=== PATIENT | female | born 2000 | race Caucasian/White ===

== ENCOUNTER 2019-11-24 16:26 | Emergency (ER) | payer MEDICAID, SELFPAY ==
--- NOTE | ~2019-11-24 | XR_ITS ---
XR ankle RT min 3V DATE: 11/24/2019 16:49 INDICATION: Rolled right ankle. Lateral right ankle pain. TECHNIQUE: 4 views COMPARISON: 08/05/2017 right ankle FINDINGS: No fracture or dislocation of the ankle or disruption of the ankle mortise is detected. No periosteal reaction or bone destruction. IMPRESSION: Negative Reviewed, dictated and finalized at location B. IMPRESSION: Negative
[2019-11-24 16:36] VITALS: BP 117/70; PULSE 91; RESP 18; TEMP 37.3; O2SAT 100
--- NOTE | 2019-11-24 16:45 | ED.GENADULT ---
HPI - General Adult General Chief complaint: Extremity Injury, Lower Stated complaint: Right Ankle Pain Time Seen by Provider: 11/24/19 16:41 Source: patient and RN notes reviewed Mode of arrival: ambulatory Limitations: no limitations History of Present Illness HPI narrative: 19-year-old female presents with complains of tenderness and swelling to the right lateral ankle for 1 hour. No treatment. Linda says approximately @ 15:20 today she stepped off a ledge walking out a door injuring RT ankle. No radiating pain. No numbness or tingling or loss of mobility. Denies inability to bear weight. Exacerbation factor consist of movement of RT ankle and bearing weight. The relieving factor is immobility. Denies discoloration. Denies altered sensation, back pain, neck pain, and suspected foreign body. Denies fever or chills. Linda denies being , LMP 11/20/19. Some parts of this dictation were generated by voice recognition software and may contain typographical and/or grammatical inaccuracies. Related Data Home Medications Medication Instructions Recorded Confirmed No Home Medications 11/24/19 11/24/19 Allergies Allergy/AdvReac Type Severity Reaction Status Date / Time coconut Allergy Unknown Unknown Verified 11/24/19 16:43 latex Allergy Unknown Unknown Verified 11/24/19 16:43 Review of Systems Review of Systems: Narrative: CONSTITUTIONAL: Denies fever, chills, sweats. EYES: Denies visual changes, redness, discharge. ENT: Denies rhinorrhea, congestion, sore throat, otalgia. CARDIOVASCULAR: Denies chest pain, palpitations, edema. RESPIRATORY: Denies dyspnea, wheezing, cough. GASTROINTESTINAL: Denies abdominal pain, nausea, vomiting, diarrhea. GENITOURINARY: Denies dysuria, hematuria, abnormal discharge. SKIN: Denies rash or itching. MUSCULOSKELETAL: Denies acute back pain or myalgia. Complains of RT lateral ankle swelling and pain. NEUROLOGIC: Denies numbness or focal weakness. PSYCHIATRIC: Denies anxiety or depression. [facility] [place] Past Medical History Medical History (Updated 12/02/19 @ 15:45 by SKYLAR Reece) Asthma Vocal cord dysfunction Surgical History Surgical History (Updated 12/02/19 @ 15:45 by SKYLAR Reece) No significant past surgical history Family History Family History (Updated 12/02/19 @ 15:46 by SKYLAR Reece) Mother Hypertension Grandparent Hypertension Social History Social History (Updated 12/02/19 @ 15:47 by SKYLAR Reece) Smoking status: Never smoker Second hand tobacco smoke exposure: Yes Alcohol intake: never Substance use: never Living arrangements: with family Occupation/Education: student Gender identity (if verbalized by the patient): Female Comments At time of signature, agree with nurse past medical, surgical, social, and family history. There is no relevant family history pertinent to the presenting complaint. Exam Narrative: Exam Narrative: GENERAL: This is a well-nourished, well-developed patient, in no apparent distress. Talks in full sentences without deficits and ambulates with RT antalgic gait without dyspnea. HEAD: normocephalic, atraumatic. EYES: PERRL. Sclera clear/white. Vision is grossly intact. NECK: Neck supple, non-tender without lymphadenopathy, masses or thyromegaly. CARDIOVASCULAR: Regular rate and rhythm without murmurs, gallops, or rubs. RESPIRATORY: Clear to auscultation. Breath sounds equal bilaterally. No wheezes, rales, or rhonchi. GASTROINTESTINAL: Abdomen soft, non-tender, nondistended. Bowel sounds are active. No hepato-splenomegaly, or palpable masses. No guarding. SKIN: warm, intact with no suspicious lesions or rash, good texture and turgor. NEURO: awake, alert, and oriented to person, place and time. There were no obvious focal neurologic abnormalities. EXTREMITIES: Without cyanosis, clubbing or edema. RT lateral (stable) ankle with moderate tenderness on palpat
== END 2019-11-24 17:12 | disposition home or self-care (01) ==
PROVIDERS: Emergency Provider Nurse Practitioner Family
DX: S93.401A Sprain of unspecified ligament of right ankle, initial encounter (principal); X58.XXXA Exposure to other specified factors, initial encounter
CPT/HCPCS: 73610; 99213; G0463

== ENCOUNTER 2020-03-30 11:51 | Emergency (ER) | payer MEDICAID, SELFPAY ==
[2020-03-30 11:57] VITALS: BP 117/64; PULSE 71; RESP 14; TEMP 36.9; O2SAT 100
--- NOTE | 2020-03-30 12:19 | ED.URI ---
HPI - URI/Sore Throat General Chief Complaint: Upper Respiratory Infection Stated Complaint: sore throat/cough Time Seen by Provider: 03/30/20 12:19 Source: patient and RN notes reviewed Mode of arrival: ambulatory Limitations: no limitations History of Present Illness HPI Narrative: 19-year-old female presents with concern for several day history of sore throat and cough. Denies taking any [id number] medications for relief. She denies fever, malaise, body aches, nasal congestion, ear pain. Reports postnasal drainage. 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 MD elicited complaint: cough and sore throat Related Data Home Medications Medication Instructions Recorded Confirmed albuterol sulfate 2 puff INHALATION QID PRN 03/30/20 03/30/20 Allergies Allergy/AdvReac Type Severity Reaction Status Date / Time coconut Allergy Unknown Anaphylaxis Verified 03/30/20 12:10 latex Allergy Unknown Rash Verified 03/30/20 12:10 Review of Systems Review of Systems: Narrative: CONSTITUTIONAL: Denies malaise, chills, sweats, or fever. EYES: Denies visual changes, redness, or discharge. ENT: Denies rhinorrhea, congestion, sinus pain, otalgia. Reports postnasal drainage and sore throat. CARDIOVASCULAR: Denies chest pain, palpitations, or edema. RESPIRATORY: Reports cough. Denies dyspnea. GASTROINTESTINAL: Denies abdominal pain, nausea, vomiting, diarrhea SKIN: Denies rash or itching. MUSCULOSKELETAL: Denies myalgia. NEUROLOGIC: Denies headache. All systems reviewed & are unremarkable except as noted in HPI and below PMFSH Past Medical History Medical History (Updated 03/30/20 @ 12:25 by Mckenzie Solis NP) Asthma Vocal cord dysfunction Surgical History Surgical History (Updated 12/02/19 @ 15:45 by SKYLAR Reece) No significant past surgical history Family History Family History (Updated 12/02/19 @ 15:46 by SKYLAR Reece) Mother Hypertension Grandparent Hypertension Social History Social History (Updated 12/02/19 @ 15:47 by SKYLAR Reece) Smoking status: Never smoker Second hand tobacco smoke exposure: Yes Alcohol intake: never Substance use: never Gender identity (if verbalized by the patient): Female Comments At time of signature, agree with nursing past medical, surgical, social and family history. There is no relevant family history pertinent to the presenting complaint Exam Narrative: Exam Narrative: GENERAL: Well-appearing, well-nourished, and in no acute distress. HEAD: Normocephalic EYES: PERRLA, conjunctivae clear ENT: Nares clear, turbinates edematous and erythematous, clear discharge. Mucous membranes moist. TM pearly mann with sharp light reflex bilaterally; no tragal tenderness. Oropharynx not erythematous without lesions. Tonsils not enlarged and without exudate, no drooling, no hoarseness, no trismus, uvula midline. NECK: Supple. No lymphadenopathy CHEST: Clear to auscultation, breath sounds equal. No wheezing, rhonchi, rales, or stridor. No respiratory distress, speaks in full sentences. HEART: Regular rate and rhythm. No murmur heard. SKIN: Warm, dry, no rash. NEURO: Alert and oriented x3. PSYCH: Normal mood and affect Course Course Emergency Course: Patient is aware of diagnosis, understands and agrees to treatment plan. Anticipatory guidance given. Patient agrees to follow-up as directed and is aware of reasons to seek care at the emergency department. Portions of this record may have been created with voice recognition software Vital Signs Vital signs: Vital Signs Temperature 98.4 F 03/30/20 11:57 Pulse Rate 71 03/30/20 11:57 Respiratory Rate 14 03/30/20 11:57 Blood Pressure 117/64 03/30/20 11:57 Pulse Oximetry 100 03/30/20 11:57 Temperature 98.4 F 03/30/20 11:57 Pulse Rate 71 03/30/20 11:57 Respiratory Rate 14 0
--- NOTE | 2020-03-30 12:52 | PC.NURSE ---
1250- PROVIDER NOTIFIED PT OF NEED FOR COVID TEST TO BE DONE BEFORE RETURNING TO WORK . INFORMATION GIVEN TO PATIENT WHO WAS STILL IN WAITING ROOM. COVID ORDER AND FACESHHET FAXED TO [facility]. PT IS AWARE THAT SHE WILL RECIEVE A PHONE CALL TO SET UP TESTING. PT IS AGREEABLE AT THIS TIME.
== END 2020-03-30 12:32 | disposition home or self-care (01) ==
PROVIDERS: Emergency Provider Nurse Practitioner
DX: J06.9 Acute upper respiratory infection, unspecified (principal); J45.909 Unspecified asthma, uncomplicated
CPT/HCPCS: 87081; 87880; 99213; G0463

== ENCOUNTER 2020-05-21 19:58 | Emergency (ER) | payer OTHER, SELFPAY ==
[2020-05-21 20:02] VITALS: BP 143/89; PULSE 98; RESP 18; TEMP 36.3; O2SAT 100
--- NOTE | 2020-05-21 22:08 | ED.DENTAL ---
HPI - Dental/Oral General Chief complaint: Dental/Oral Stated complaint: Dental pain Time Seen by Provider: 05/21/20 22:01 History of Present Illness HPI Narrative: Bilateral wisdom tooth pain. She reports that she has seen a dentist and plans to get them out, but they will not put her on the schedule for at least 3 months. She has been taking acetaminophen without improvmeent. She does not have a PCP. Related Data Home Medications Medication Instructions Recorded Confirmed albuterol sulfate 2 puff INHALATION QID PRN 03/30/20 03/30/20 Control Pill 1 tab-cap/day PO HS 05/21/20 Allergies Allergy/AdvReac Type Severity Reaction Status Date / Time coconut Allergy Unknown Anaphylaxis Verified 05/21/20 20:02 latex Allergy Unknown Rash Verified 05/21/20 20:02 Review of Systems Review of Systems: All systems reviewed & are unremarkable except as noted in HPI and below Constitutional: Constitutional: Denies chills and Denies fever(s) Eyes: Eyes: Denies change in vision ENT: Denies dizziness Cardiovascular: Cardiovascular: Denies chest pain Respiratory: Respiratory: Denies dyspnea Gastrointestinal: Gastrointestinal: Denies nausea and Denies vomiting Neurologic: Denies dizziness, Reports headache(s), Denies numbness and Denies weakness PMFSH Past Medical History Medical History Asthma Vocal cord dysfunction Surgical History Surgical History No significant past surgical history Family History Family History Mother Hypertension Grandparent Hypertension Social History Social History Smoking status: Never smoker Second hand tobacco smoke exposure: Yes Alcohol intake: never Substance use: never Gender identity (if verbalized by the patient): Female Exam Const: General: healthy appearing, no acute distress and alert Orientation/consciousness: patient oriented x3 HENMT: Head: normal to inspection Ears: external ears normal and TM's normal bilaterally Mouth: Yes Normal oral and palatal mucosa present and Yes moist mucous membranes Teeth and gingiva: dentition normal Eyes: Pupils: Equal, round and reactive pupils present Skin: General skin exam: normal color Neuro: General: patient oriented x3, moves all extremities, no focal motor deficits and CN's II-XI intact bilaterally Speech: normal speech Course Vital Signs Vital signs: Vital Signs Temperature 36.3 C L 05/21/20 20:02 Pulse Rate 98 05/21/20 20:02 Respiratory Rate 18 05/21/20 20:02 Blood Pressure 143/89 H 05/21/20 20:02 Pulse Oximetry 100 05/21/20 20:02 Temperature 36.3 C L 05/21/20 20:02 Pulse Rate 98 05/21/20 20:02 Respiratory Rate 18 05/21/20 20:02 Blood Pressure 143/89 H 05/21/20 20:02 Pulse Oximetry 100 05/21/20 20:02 MDM - Dental/Oral MDM Narrative Medical decision making narrative: grossly normal dental exam. I will recmmend NSAIDs and refer to PCP possibly different dental clinic Differential Diagnosis Differential diagnosis: Likely toothache Medical Records Attestation: I reviewed the patient's medical records. Discharge Plan Discharge Clinical Impression: Pain, dental Patient Disposition: Home, Self-Care Condition: Stable Instructions: Toothache (ED) Additional Instructions: You can attempt scheduling and appointment with : [facility] Prescriptions: New ibuprofen 600 mg tablet 600 mg PO Q6H PRN (Reason: pain) Qty: 30 RF: 0 No Action albuterol sulfate 90 mcg/actuation Hfa Aerosol Inhaler 2 puff INHALATION QID PRN (Reason: Dyspnea) RF: 0 Control Pill 1 tab-cap/day PO HS RF: 0 Follow-up/Referrals: Bradley Schmid MD [Physician] - PHYSICIAN,OBSTETRICS TECHNICIAN [Primary Care P
[2020-05-21] MEDS: KETOROLAC (*BKC) 60 MG/2 ML VIAL IM (22:31)
[2020-05-21 23:02] VITALS: BP 112/78; PULSE 72; RESP 16; O2SAT 99
== END 2020-05-21 23:03 | disposition home or self-care (01) ==
PROVIDERS: Emergency Provider Emergency Medicine
DX: K08.89 Other specified disorders of teeth and supporting structures (principal); J45.909 Unspecified asthma, uncomplicated
CPT/HCPCS: 96372; 99283; J1885

== ENCOUNTER 2020-06-24 19:58 | Emergency (ER) | payer OTHER, SELFPAY ==
--- NOTE | ~2020-06-24 | CT_ITS ---
EXAMINATION: CT abdomen pelvis w con DATE: 06/24/2020 22:15 INDICATION: Right upper quadrant abdominal pain TECHNIQUE: Computed tomography (CT) of the abdomen and pelvis was performed with 100 mL Omnipaque-350 intravenous contrast. Automated exposure control and iterative reconstruction technique were employe d. The dose-length product was 1503.34 mGy-cm. COMPARISON: None FINDINGS: Minimal atelectasis in the dependent lower lobes. Heart size is normal. No pericardial or pleural eff usion. Focal hepatic steatosis at the ligamentum teres. There are couple low-attenuation likely hepat ic cysts or hemangiomas, the largest measuring 7 mm. Spleen, pancreas, bilateral adrenal glands and k idneys are normal. Bowels including the appendix are normal with large amount of stool in the proxima l colon. Bladder, anteverted uterus and adnexa are normal with 1.5 cm dominant follicle the left ovar y. No free intraperitoneal gas or fluid. No pathologically enlarged abdominal or pelvic lymphadenopat hy. Chronic mild anterior wedging at T12-L2. Mild lumbar spondylosis. IMPRESSION: 1. No acute intra-abdominal/pelvic process. Reviewed, dictated and finalized at location A.
[2020-06-24 20:00] VITALS: BP 147/95; PULSE 97; RESP 20; TEMP 36.4; O2SAT 100
[2020-06-24 20:20] LABS: Basophils Percent Auto 0.5 % (0.2-1.2); Eosinophils Absolute Auto 0.4 K/mm3 (0-0.3); Eosinophils Percent Auto 4.7 % (0-4.4); Hematocrit 40.4 % (37.0-47.0); Hemoglobin 13.8 g/dL (12.0-15.0); Immature Granulocyte Absolute 0.01 K/mm3 (0.00-0.031); Immature Granulocyte Percent A 0.1 % (0-0.5); Lymphocytes Absolute Auto 2.57 K/mm3 (0.9-3.2); Lymphocytes Percent Auto 33.7 % (18.3-44.2); Mean Corpuscular HGB Conc 34.2 g/dl (32-36); Mean Corpuscular Hemoglobin 30.5 pg (26-34); Mean Corpuscular Volume 89.4 fl (80-100); Mean Platelet Volume 9.7 fl (7.4-10.4); Monocytes Absolute Auto 0.7 K/mm3 (0.1-0.6); Monocytes Percent Auto 8.5 % (2.6-8.5); Neutrophils Percent Auto 52.5 % (45.5-73.1); Platelet Count Result 244 k/mm3 (150-375); Red Blood Count 4.52 M/mm3 (4.2-5.4); Red Cell Distribution Width 13.1 % (11.5-14.5); White Blood Count 7.6 K/mm3 (4.5-10.0)
[2020-06-24 20:35] LABS: Alanine Aminotransferase 17 U/L (4-35); Albumin Level 4.4 g/dL (3.5-5.1); Alkaline Phosphatase 50 U/L (38-126); Anion Gap 9 mmol/L (8-16); Aspartate Amino Transferase 22 U/L (14-36); Bilirubin,Total 0.3 mg/dL (0.2-1.3); Blood Urea Nitrogen 16 mg/dL (7-17); Calcium 9.4 mg/dL (8.4-10.2); Carbon Dioxide 27 mmol/L (22-30); Chloride 105 mmol/L (98-107); Estimated CRCL calculation 127 ml/min; Estimated Glomerular Filt Rate > 60; Glucose 113 mg/dL (65-105); Lipase 71 U/L (23-300); Potassium 3.9 mmol/L (3.4-5.0); Sodium 141 mmol/L (137-145)
--- NOTE | 2020-06-24 20:38 | PC.NURSE ---
called lab to add on d dimer
[2020-06-24 20:53] LABS: D Dimer 0.27 ug/mL (<0.48)
[2020-06-24 20:54] LABS: Add Urine Microscopic? YES; Appearance Urine Clear (Clear); Bacteria Urine 1+ /hpf; Bilirubin Urine Negative (Negative); Blood Urine 1+ (Negative); Color Urine Straw (Yellow); Glucose Urine UA Negative (Negative); Ketones Urine Negative (Negative); Leukocyte Esterase Ur Negative LEU/UL (Negative); Mucus Urine Rare /lpf; Nitrate Urine Negative (Negative); Protein Urine Negative (Negative); RBC Urine 0-2 /hpf (0-2); Specific Grav Ur 1.016 (1.001-1.035); Squamous Epithelial Cell Urine Few /hpf (Few); Urobilinogen Urine Negative mg/dL (<2.0); WBC Urine 0-3 /hpf
[2020-06-24] MEDS: ONDANSETRON INJ 4 MG/2 ML VIAL IV PUSH (20:56)
[2020-06-24] MEDS: MORPHINE SULFATE (*CRX) 4 MG/ML INJ IV PUSH (20:57)
--- NOTE | 2020-06-24 21:00 | ED.ABDPAIN ---
HPI - Abdominal Pain General Chief Complaint: Abdominal Pain Stated Complaint: right sided flank pain Time Seen by Provider: 06/24/20 20:14 History of Present Illness HPI narrative: Patient is a 20-year-old female who presents ER with upper abdominal pain. Sharp and sudden onset last night around midnight. This persisted throughout today. Worse with deep breath. Feels like it is underneath her rib cage in her abdomen. No nausea or vomiting or sweats or chills. No modification with eating or drinking. Has not had similar symptoms before. No hemoptysis. She does have a Nexplanon. Related Data Home Medications Medication Instructions Recorded Confirmed albuterol sulfate 2 puff INHALATION QID PRN 03/30/20 03/30/20 epinephrine [EpiPen 2-Shaun] 06/24/20 Allergies Allergy/AdvReac Type Severity Reaction Status Date / Time coconut Allergy Unknown Anaphylaxis Verified 06/24/20 19:59 latex Allergy Unknown Rash Verified 06/24/20 19:59 Review of Systems Review of Systems: All systems reviewed & are unremarkable except as noted in HPI and below Constitutional: Constitutional: Denies chills, Denies fever(s) and Denies weakness ENT: Denies nasal congestion and Denies sore throat Cardiovascular: Cardiovascular: Denies chest pain and Denies radiating jaw, neck or arm pain Respiratory: Respiratory: Denies cough and Denies dyspnea Comments: Pain with deep breath Gastrointestinal: Gastrointestinal: Reports abdominal pain, Denies diarrhea, Denies nausea and Denies vomiting PMFSH Past Medical History Medical History (Updated 06/24/20 @ 22:43 by Maikel Soriano MD) Asthma Vocal cord dysfunction Surgical History Surgical History No significant past surgical history Family History Family History Mother Hypertension Grandparent Hypertension Social History Social History Smoking status: Never smoker Second hand tobacco smoke exposure: Yes Alcohol intake: never Substance use: never Gender identity (if verbalized by the patient): Female Exam Narrative: Exam Narrative: GENERAL: Well-appearing, well-nourished, and in no acute distress. HEAD: Normocephalic, atraumatic. ENT: Mucous membranes moist. CHEST: Clear to auscultation. No respiratory distress. HEART: Regular rate and rhythm. Normal peripheral pulses. ABDOMEN: Soft, TTP in RUQ, nondistended. EXTREMITIES: Normal range of motion. No edema. SKIN: Warm, dry, no rash. NEURO: No focal deficits. Alert and oriented x3. PSYCH: Normal mood and affect. Course Vital Signs Vital signs: Vital Signs Temperature 97.6 F 06/24/20 20:00 Pulse Rate 97 06/24/20 20:00 Respiratory Rate 20 06/24/20 20:00 Blood Pressure 147/95 H 06/24/20 20:00 Pulse Oximetry 100 06/24/20 20:00 Temperature 97.6 F 06/24/20 20:00 Pulse Rate 97 06/24/20 20:00 Respiratory Rate 20 06/24/20 20:00 Blood Pressure 147/95 H 06/24/20 20:00 Pulse Oximetry 100 06/24/20 20:00 MDM - Abdominal Pain Lab Data Result diagrams: 06/24/20 20:15 06/24/20 20:15 Labs: Lab Results 06/24/20 06/24/20 06/24/20 Range/Units 20:15 20:15 20:15 WBC 7.6 (4.5-10.0) K/mm3 RBC 4.52 (4.2-5.4) M/mm3 Hgb 13.8 (12.0-15.0) g/dL Hct 40.4 (37.0-47.0) % MCV 89.4 (80-100) fl MCH 30.5 (26-34) pg MCHC 34.2 (32-36) g/dl RDW 13.1 (11.5-14.5) % Plt Count 244 (150-375) k/mm3 MPV 9.7 (7.4-10.4) fl Immature Gran % (Auto) 0.1 (0-0.5) % Neut % (Auto) 52.5 (45.5-73.1) % Lymph % (Auto) 33.7 (18.3-44.2) % Morris % (Auto) 8.5 (2.6-8.5) % Eos % (Auto) 4.7 H (0-4.4) % Baso % (Auto) 0.5 (0.2-1.2) % Lymph # (Auto) 2.57 (0.9-3.2) K/mm3 Morris # (Auto) 0.7 H (0.1-0.6) K/mm3 Eos # (Auto) 0.4 H (0
[2020-06-24 23:15] VITALS: BP 102/65; PULSE 77; RESP 17; TEMP 36.8; O2SAT 100
== END 2020-06-24 23:17 | disposition home or self-care (01) ==
PROVIDERS: Emergency Medicine; Emergency Provider Emergency Medicine
DX: K59.00 Constipation, unspecified (principal); J45.909 Unspecified asthma, uncomplicated
CPT/HCPCS: 36415; 74177; 80053; 81001; 81025; 83690; 85025; 85380; 96374; 96375; 99284; J2270; J2405; Q9967

== ENCOUNTER 2020-06-28 09:21 | Emergency (ER) | payer OTHER, SELFPAY ==
--- NOTE | ~2020-06-28 | US_ITS ---
US right upper quadrant INDICATION: Right upper quadrant pain PROCEDURE: Realtime right upper abdominal ultrasound. COMPARISON: No prior studies for comparison. FINDINGS: The pancreas is normal without focal mass or pancreatic ductal dilation. Liver echotexture is normal without focal mass or intrahepatic biliary dilatation. There is normal directional flow i n the portal vein. There are multiple gallbladder polyps, largest measuring 5 mm. No definite gallstones, gallbladder wa ll thickening or pericholecystic fluid. Common bile duct measures 3 mm. No sonographic Rocha's sig n. IMPRESSION: 1: Gallbladder polyps. Reviewed, dictated and finalized at location B. IMPRESSION: 1: Gallbladder polyps.
--- NOTE | ~2020-06-28 | XR_ITS ---
EXAMINATION: XR abdomen obstructive series DATE: 06/28/2020 10:31 INDICATION: Right-sided abdominal pain. Constipation. Vomiting. TECHNIQUE: Upright and supine views of the abdomen on 3 radiographs were obtained. COMPARISON: CT abdomen and pelvis 06/24/2020 FINDINGS: There are no dilated loops of bowel. There is a small volume of stool in the colon. No free intraperitoneal gas. There is no visible urolithiasis. IMPRESSION: 1. Normal bowel gas pattern. Reviewed, dictated and finalized at location A.
[2020-06-28 09:28] VITALS: BP 127/60; PULSE 81; RESP 18; TEMP 36.3; O2SAT 99
--- NOTE | 2020-06-28 09:51 | ECG_ITS ---
Measurements Intervals [place] Rate: 75 P: 26 [place]: 163 QRS: 42 QRSD: 87 T: 24 QT: 370 QTc: 413 Interpretive Statements SINUS RHYTHM NORMAL ECG Electronically Signed On 06-28-2020 10:30:57 CDT by Guru Whitley D.O.
--- NOTE | 2020-06-28 09:55 | ED.ABDPAIN ---
HPI - Abdominal Pain General Chief Complaint: Abdominal Pain Stated Complaint: abd pain/persistent constipation Time Seen by Provider: 06/28/20 09:26 Source: patient Mode of arrival: ambulatory Limitations: no limitations History of Present Illness HPI narrative: This is a 20 year old female that presents to the ER for constipation. Reports she has not had a BM in about a week. Reports she was seen here for this a couple of days ago. She has been taking Miralax daily and doses of mag citrate without relief. The pain is in her RUQ. Worse after she eats. Also reports nausea and shortness of breath. Denies fever, chest pain, vomiting, or dysuria. Related Data Home Medications Medication Instructions Recorded Confirmed albuterol sulfate 2 puff INHALATION QID PRN 03/30/20 03/30/20 epinephrine [EpiPen 2-Shaun] 06/24/20 Allergies Allergy/AdvReac Type Severity Reaction Status Date / Time coconut Allergy Unknown Anaphylaxis Verified 06/28/20 09:32 latex Allergy Unknown Rash Verified 06/28/20 09:32 Review of Systems Review of Systems: Narrative: CONSTITUTIONAL: Denies fever CARDIOVASCULAR: Denies chest pain, or edema. RESPIRATORY: Reports dyspnea. Denies cough GASTROINTESTINAL: Reports abdominal pain, nausea. Denies vomiting GENITOURINARY: Denies dysuria All systems reviewed & are unremarkable except as noted in HPI and below PMFSH Past Medical History Medical History (Updated 06/28/20 @ 13:30 by Joselyn Santos PA-C) Asthma Vocal cord dysfunction Surgical History Surgical History No significant past surgical history Family History Family History Mother Hypertension Grandparent Hypertension Social History Social History (Updated 06/28/20 @ 10:01 by Joselyn Santos PA-C) Smoking status: Never smoker Second hand tobacco smoke exposure: Yes Alcohol intake: current Substance use: never Gender identity (if verbalized by the patient): Female Exam Narrative: Exam Narrative: GENERAL: Well-appearing, obese, and in no acute distress. HEAD: Normocephalic, atraumatic. EYES: EOMI. NECK: Supple. No adenopathy or masses. CHEST: Clear to auscultation. No respiratory distress. No wheezes rales or rhonchi HEART: Regular rate and rhythm. No murmur heard. Normal peripheral pulses. ABDOMEN: Soft, nondistended, normal active bowel sounds. Mild tenderness to palpation throughout the right sided abdomen, without guarding. No CVA tenderness EXTREMITIES: Normal range of motion. No edema. SKIN: Warm, dry, no rash. NEURO: No focal deficits. Alert and oriented x3. PSYCH: Normal mood and affect Course Vital Signs Vital signs: Vital Signs Temperature 97.4 F L 06/28/20 09:28 Pulse Rate 81 06/28/20 09:28 Respiratory Rate 18 06/28/20 09:28 Blood Pressure 127/60 06/28/20 09:28 Pulse Oximetry 99 06/28/20 09:28 Temperature 97.4 F L 06/28/20 09:28 Pulse Rate 69 06/28/20 12:03 Respiratory Rate 18 06/28/20 12:03 Blood Pressure 105/70 06/28/20 12:03 Pulse Oximetry 98 06/28/20 12:03 MDM - Abdominal Pain MDM Narrative Medical decision making narrative: Patient presents to the emergency department for right upper quadrant pain and constipation. She is afebrile and nontoxic-appearing. CBC is without leukocytosis. Metabolic panel and lipase are normal. Lactic acid is not elevated. UA with 10-15 white blood cells and bacteria, also with many squamous epithelial cells. Patient is asymptomatic. Likely a contaminated catch. This will go for culture. Bedside test is negative. KUB shows a normal bowel gas pattern and small amount of colonic stool. Patient recently had a CT scan of the abdomen and pelvis just a couple of days ago that was without acute findings. Right upper quadrant ultrasound shows multiple small gallbladder polyps. Patient and family were
[2020-06-28] MEDS: ONDANSETRON INJ 4 MG/2 ML VIAL IV PUSH (10:10)
[2020-06-28 10:17] LABS: Basophils Percent Auto 0.4 % (0.2-1.2); Eosinophils Absolute Auto 0.1 K/mm3 (0-0.3); Eosinophils Percent Auto 2.6 % (0-4.4); Hematocrit 40.8 % (37.0-47.0); Hemoglobin 13.7 g/dL (12.0-15.0); Lymphocytes Absolute Auto 1.27 K/mm3 (0.9-3.2); Lymphocytes Percent Auto 23.9 % (18.3-44.2); Mean Corpuscular HGB Conc 33.6 g/dl (32-36); Mean Corpuscular Volume 89.3 fl (80-100); Mean Platelet Volume 9.1 fl (7.4-10.4); Monocytes Absolute Auto 0.4 K/mm3 (0.1-0.6); Monocytes Percent Auto 8.3 % (2.6-8.5); Neutrophils Absolute Auto 3.5 K/mm3 (1.3-6.7); Neutrophils Percent Auto 64.8 % (45.5-73.1); Platelet Count Result 226 k/mm3 (150-375); Red Blood Count 4.57 M/mm3 (4.2-5.4); Red Cell Distribution Width 13.1 % (11.5-14.5); White Blood Count 5.3 K/mm3 (4.5-10.0)
[2020-06-28 10:31] LABS: Alanine Aminotransferase 16 U/L (4-35); Albumin Level 4.1 g/dL (3.5-5.1); Alkaline Phosphatase 56 U/L (38-126); Anion Gap 8 mmol/L (8-16); Aspartate Amino Transferase 24 U/L (14-36); Blood Urea Nitrogen 15 mg/dL (7-17); Calcium 9.2 mg/dL (8.4-10.2); Carbon Dioxide 24 mmol/L (22-30); Chloride 107 mmol/L (98-107); Estimated CRCL calculation 121 ml/min; Estimated Glomerular Filt Rate > 60; Glucose 95 mg/dL (65-105); Lactic Acid Reflex 0.6 mmol/L (0.7-2.1); Lipase 93 U/L (23-300); Potassium 4.2 mmol/L (3.4-5.0); Sodium 139 mmol/L (137-145)
[2020-06-28 10:32] LABS: Add Urine Microscopic? YES; Appearance Urine Cloudy (Clear); Bacteria Urine 2+ /hpf; Bilirubin Urine Negative (Negative); Budding Yeast Urine Present /hpf; Color Urine Yellow (Yellow); Glucose Urine UA Negative (Negative); Ketones Urine Negative (Negative); Leukocyte Esterase Ur 2+ LEU/UL (Negative); Mucus Urine Few /lpf; Nitrate Urine Negative (Negative); Protein Urine 1+ mg/dL (Negative); Specific Grav Ur 1.026 (1.001-1.035); Squamous Epithelial Cell Urine Many /hpf (Few); Urobilinogen Urine Negative mg/dL (<2.0)
[2020-06-28 10:35] LABS: Prothrombin Time 13.1 Seconds (11.1-14.7)
[2020-06-28 10:36] LABS: Partial Thromboplastin Time 27.6 SECONDS (22.3-36.8)
[2020-06-28 10:38] LABS: Blood Urine Negative (Negative)
[2020-06-28 10:48] LABS: D Dimer 0.27 ug/mL (<0.48)
[2020-06-28 12:03] VITALS: BP 105/70; PULSE 69; RESP 18; O2SAT 98
== END 2020-06-28 13:44 | disposition home or self-care (01) ==
PROVIDERS: Physician Assistant; Emergency Provider Emergency Medicine; PCP Physician Assistant
DX: K82.4 Cholesterolosis of gallbladder (principal); K59.00 Constipation, unspecified; J45.909 Unspecified asthma, uncomplicated
CPT/HCPCS: 36415; 74019; 76705; 80053; 81001; 81025; 83605; 83690; 85025; 85380; 85610; 85730; 87086; 87088; 93005; 96365; 96375; 99284; J0131; J2405

== ENCOUNTER 2020-09-04 18:50 | Emergency (ER) | payer BC, SELFPAY ==
[2020-09-04 19:05] VITALS: BP 140/95; PULSE 90; RESP 18; TEMP 37.3; O2SAT 98
[2020-09-04 19:52] LABS: Basophils Percent Auto 0.3 % (0.2-1.2); Eosinophils Absolute Auto 0.2 K/mm3 (0-0.3); Eosinophils Percent Auto 2.4 % (0-4.4); Hematocrit 39.1 % (37.0-47.0); Hemoglobin 13.5 g/dL (12.0-15.0); Immature Granulocyte Absolute 0.02 K/mm3 (0.00-0.031); Immature Granulocyte Percent A 0.3 % (0-0.5); Lymphocytes Absolute Auto 2.05 K/mm3 (0.9-3.2); Lymphocytes Percent Auto 28.6 % (18.3-44.2); Mean Corpuscular HGB Conc 34.5 g/dl (32-36); Mean Corpuscular Hemoglobin 30.6 pg (26-34); Mean Corpuscular Volume 88.7 fl (80-100); Mean Platelet Volume 9.2 fl (7.4-10.4); Monocytes Absolute Auto 0.6 K/mm3 (0.1-0.6); Monocytes Percent Auto 8.9 % (2.6-8.5); Neutrophils Absolute Auto 4.3 K/mm3 (1.3-6.7); Neutrophils Percent Auto 59.5 % (45.5-73.1); Platelet Count Result 268 k/mm3 (150-375); Red Blood Count 4.41 M/mm3 (4.2-5.4); Red Cell Distribution Width 12.6 % (11.5-14.5); White Blood Count 7.2 K/mm3 (4.5-10.0)
[2020-09-04 19:54] LABS: Add Urine Microscopic? YES; Appearance Urine Clear (Clear); Bacteria Urine Trace /hpf; Bilirubin Urine Negative (Negative); Blood Urine Negative (Negative); Color Urine Yellow (Yellow); Glucose Urine UA Negative (Negative); Ketones Urine Negative (Negative); Leukocyte Esterase Ur Trace LEU/UL (Negative); Mucus Urine Rare /lpf; Nitrate Urine Negative (Negative); Protein Urine Negative (Negative); Specific Grav Ur 1.017 (1.001-1.035); Squamous Epithelial Cell Urine Few /hpf (Few); Urobilinogen Urine Negative mg/dL (<2.0); WBC Urine 0-3 /hpf
[2020-09-04 20:03] LABS: Ethanol < 10 mg/dL (<10)
[2020-09-04 20:08] LABS: Alanine Aminotransferase 21 U/L (4-35); Albumin Level 4.1 g/dL (3.5-5.1); Alkaline Phosphatase 56 U/L (38-126); Amphetamine Screen Urine Negative (Negative); Anion Gap 7 mmol/L (8-16); Aspartate Amino Transferase 25 U/L (14-36); Barbiturate Screen Urine Negative (Negative); Benzodiazepines Screen Urine Negative (Negative); Bilirubin,Total 0.5 mg/dL (0.2-1.3); Blood Urea Nitrogen 13 mg/dL (7-17); Calcium 9.3 mg/dL (8.4-10.2); Cannabinoid Screen Urine Negative (Negative); Carbon Dioxide 26 mmol/L (22-30); Chloride 106 mmol/L (98-107); Cocaine Screen Urine Negative (Negative); Estimated CRCL calculation 162 ml/min; Estimated Glomerular Filt Rate > 60; Glucose 99 mg/dL (65-105); Methadone Screen Urine Negative (Negative); Opiate Screen Urine Negative (Negative); Phencyclidine Screen Urine Negative (Negative); Potassium 3.8 mmol/L (3.4-5.0); Sodium 139 mmol/L (137-145)
--- NOTE | 2020-09-04 20:14 | ED.GENADULT ---
HPI - General Adult General Chief complaint: Psychiatric Symptoms Stated complaint: si Time Seen by Provider: 09/04/20 19:54 Source: patient History of Present Illness HPI narrative: Patient is a 20 y/o female complaining of suicidal ideation for last 2 days. She states that the holidays and school are stressing her out. She is considering overdose on medication. She feels well otherwise. Related Data Home Medications Medication Instructions Recorded Confirmed albuterol sulfate 2 puff INHALATION QID PRN 03/30/20 03/30/20 epinephrine [EpiPen 2-Shaun] 06/24/20 Allergies Allergy/AdvReac Type Severity Reaction Status Date / Time coconut Allergy Unknown Anaphylaxis Verified 06/28/20 09:32 latex Allergy Unknown Rash Verified 06/28/20 09:32 Review of Systems Constitutional: Constitutional: Denies chills, Denies fever(s), Denies headache(s) and Denies weakness Eyes: Eyes: Denies blurry vision ENT: Denies headache(s) and Denies neck pain Cardiovascular: Cardiovascular: Denies chest pain and Denies dyspnea Respiratory: Respiratory: Denies cough and Denies dyspnea Gastrointestinal: Gastrointestinal: Denies abdominal pain, Denies diarrhea, Denies nausea and Denies vomiting Genitourinary: Genitourinary: Denies hematuria and Denies dysuria Musculoskeletal: Musculoskeletal: Denies back pain and Denies neck pain Neurologic: Denies headache(s) and Denies weakness Psychiatric: Psychiatric: Reports as per HPI and Reports suicidal ideation [facility] Past Medical History Medical History (Updated 09/08/20 @ 22:56 by Gianna Ram MD) Asthma Vocal cord dysfunction Surgical History Surgical History No significant past surgical history Family History Family History Mother Hypertension Grandparent Hypertension Social History Social History Smoking status: Never smoker Second hand tobacco smoke exposure: Yes Alcohol intake: current Substance use: never Gender identity (if verbalized by the patient): Female Exam Const: General: no acute distress and well developed Orientation/consciousness: oriented to person, oriented to place, oriented to time and patient oriented x3 HENMT: Head: normocephalic Ears: external ears normal General nose exam: Normal external nose present Eyes: General: appearance normal, both eyes and all related structures Conjunctivae: conjunctivae normal Neck: Neck: normal visual inspection and full ROM Chest: Chest palpation & inspection: normal inspection of the chest and no tenderness Resp: Effort & Inspection: normal respiratory effort Auscultation: clear to auscultation bilaterally Cardio: Rate: regular rate Rhythm: regular rhythm GI: GI Palp: No abdominal tenderness and Yes Soft to palpation Skin: General skin exam: normal color and turgor normal Neuro: General: oriented to person, oriented to place, oriented to time and patient oriented x3 Cognition (Neuro): normal cognition Extrem: General: normal to inspection, full ROM and no pedal edema Psych: Appearance: grossly normal Mental Status: mental status grossly normal Affect: Sad affect present Thought content: Yes Suicidality present Course Vital Signs Vital signs: Vital Signs Temperature 37.3 C 09/04/20 19:05 Pulse Rate 90 09/04/20 19:05 Respiratory Rate 18 09/04/20 19:05 Blood Pressure 140/95 H 09/04/20 19:05 Pulse Oximetry 98 09/04/20 19:05 Temperature 36.8 C 09/05/20 00:14 Pulse Rate 82 09/05/20 00:14 Respiratory Rate 16 09/05/20 00:14 Blood Pressure 114/74 09/05/20 00:14 Pulse Oximetry 97 09/05/20 00:14 Medical Decision Making Vital Signs Vital Signs: Vital Signs Temperature 37.3 C 09/04/20 19:05 Pulse Rate 90 09/04/20 19:05 Respiratory Rate 18 09/04/20 19:05 Blood Pressure 140
[2020-09-04 23:00] VITALS: BP 134/84; PULSE 90; RESP 18; O2SAT 98
--- NOTE | 2020-09-05 00:13 | PC.NURSE ---
contacted [facility], [facility], and [facility] to transfer patient to [place]. all companies declined due to shortage of trucks. [facility] accepted eta [id number]
[2020-09-05 00:14] VITALS: BP 114/74; PULSE 82; RESP 16; TEMP 36.8; O2SAT 97
--- NOTE | 2020-09-05 00:38 | PC.NURSE ---
[facility] has arrived
[2020-09-05 18:01] LABS: SARS-CoV-2 RNA PCR Negative
== END 2020-09-05 00:44 ==
PROVIDERS: Emergency Medicine; Emergency Provider Emergency Medicine; PCP Physician Assistant
DX: F32.9 Major depressive disorder, single episode, unspecified (principal); Z20.828 Contact with and (suspected) exposure to other viral communicable diseases; J45.909 Unspecified asthma, uncomplicated
CPT/HCPCS: 36415; 80053; 80307; 81001; 81025; 84443; 85025; 87635; 99285; C9803; U0003

== ENCOUNTER 2021-05-09 19:32 | Emergency (ER) | payer BC, SELFPAY ==
[2021-05-09] VITALS (8 sets, daily range): BP systolic 128–168; BP diastolic 78–91; PULSE 81–98; RESP 15–23; TEMP 37.1; O2SAT 99–100
--- NOTE | ~2021-05-09 | XR_ITS ---
EXAMINATION: XR chest 2V DATE: 05/09/2021 20:13 INDICATION: Midsternal chest pain. TECHNIQUE: Frontal and lateral views of the chest were obtained. COMPARISON: CT abdomen and pelvis 06/24/2020 FINDINGS: The chest demonstrates clear lungs without pneumonia, pleural effusion, or pneumothorax. Th e heart size is normal. IMPRESSION: 1. No acute cardiopulmonary disease. Reviewed, dictated and finalized at location A.
--- NOTE | 2021-05-09 19:49 | ECG_ITS ---
Measurements Intervals [place] Rate: 88 P: 30 ME: 178 QRS: 44 QRSD: 77 T: 36 QT: 345 QTc: 418 Interpretive Statements SINUS RHYTHM LOW QRS VOLTAGE IN PRECORDIAL LEADS BASELINE ARTIFACT- I, III, AVR, AVL, AVF BORDERLINE ECG Electronically Signed On 05-09-2021 20:15:38 CDT by Guru Whitley D.O.
--- NOTE | 2021-05-09 20:01 | ED.CHESTPAIN ---
HPI - Chest Pain General Chief Complaint: Chest Pain Stated Complaint: upper abd pain Time Seen by Provider: 05/09/21 19:47 Source: patient Mode of arrival: ambulatory Limitations: no limitations History of Present Illness HPI narrative: 20-year-old with a history of anxiety, depression here with complaints of chest pain since this morning. She feels somebody sitting on her chest. She denies any shortness of breath. No history of fever or chills. Denies cough. MD complaint: chest heaviness Pertinent past history: other (Anxiety) Onset (ago): day(s) (1) Timing of current episode: constant Prior episodes: No Pain location: substernal Pain radiation: none Severity: moderate Quality: heaviness Relieving factors: nothing Exacerbating factors: nothing Risk Factors Coronary artery disease risk factors: none Related Data Home Medications Medication Instructions Recorded Confirmed albuterol sulfate 2 puff INHALATION QID PRN 03/30/20 03/30/20 epinephrine [EpiPen 2-Shaun] 06/24/20 Allergies Allergy/AdvReac Type Severity Reaction Status Date / Time coconut Allergy Unknown Anaphylaxis Verified 06/28/20 09:32 latex Allergy Unknown Rash Verified 05/09/21 19:48 Review of Systems Review of Systems: All systems reviewed & are unremarkable except as noted in HPI and below Constitutional: Constitutional: Reports no additional constitutional complaints Eyes: Eyes: Reports no additional eye complaints ENT: Reports system reviewed and no additional complaints, except as documented Cardiovascular: Cardiovascular: Reports as per HPI Respiratory: Respiratory: Reports no additional respiratory complaints Gastrointestinal: Gastrointestinal: Reports no additional gastrointestinal complaints Musculoskeletal: Musculoskeletal: Reports no additional musculoskeletal complaints Neurologic: Reports system reviewed and no additional complaints, except as documented [facility] Past Medical History Medical History (Updated 05/09/21 @ 20:59 by Devon Yoo MD) Asthma Vocal cord dysfunction Surgical History Surgical History No significant past surgical history Family History Family History Mother Hypertension Grandparent Hypertension Social History Social History Smoking status: Never smoker Second hand tobacco smoke exposure: Yes Alcohol intake: current Substance use: never Gender identity (if verbalized by the patient): Female Exam Narrative: GENERAL: Well-appearing, obese, and in no acute distress. HEAD: Normocephalic, atraumatic. EYES: PERRLA and EOMI. NECK: Supple. CHEST: Clear to auscultation. No respiratory distress. HEART: Regular rate and rhythm. No murmur heard. Normal peripheral pulses. ABDOMEN: Soft, nontender, nondistended, normal active bowel sounds. EXTREMITIES: Normal range of motion. No edema. SKIN: Warm, dry, no rash. NEURO: No focal deficits. Alert and oriented x3. PSYCH: Normal mood and affect. Course Course Emergency Course: Inform patient about her lab work EKG chest x-ray findings. Advised her to continue her BuSpar as prescribed by her primary doctor. Vital Signs Vital signs: Vital Signs Temperature 37.1 C 05/09/21 19:39 Pulse Rate 96 05/09/21 19:39 Respiratory Rate 18 05/09/21 19:39 Blood Pressure 146/91 H 05/09/21 19:39 Pulse Oximetry 100 05/09/21 19:39 Temperature 37.1 C 05/09/21 19:39 Pulse Rate 85 05/09/21 20:45 Respiratory Rate 18 05/09/21 20:45 Blood Pressure 168/89 H 05/09/21 20:30 Pulse Oximetry 100 05/09/21 20:45 MDM - Chest Pain Lab Data Result diagrams: 05/09/21 20:03 05/09/21 20:03 Labs: Lab Results 05/09/21 05/09/21 05/09/21 Range/Units 20:03 20:03 20:03 WBC 9.5 (4.5-10.0) K/mm3 RBC 4.52 (4.2-5.4) M/mm3
[2021-05-09 20:13] LABS: Basophils Percent Auto 0.3 % (0.2-1.2); Eosinophils Absolute Auto 0.2 K/mm3 (0-0.3); Eosinophils Percent Auto 1.8 % (0-4.4); Hematocrit 40.6 % (37.0-47.0); Hemoglobin 13.8 g/dL (12.0-15.0); Immature Granulocyte Absolute 0.03 K/mm3 (0.00-0.031); Immature Granulocyte Percent A 0.3 % (0-0.5); Lymphocytes Absolute Auto 2.17 K/mm3 (0.9-3.2); Lymphocytes Percent Auto 22.8 % (18.3-44.2); Mean Corpuscular Hemoglobin 30.5 pg (26-34); Mean Corpuscular Volume 89.8 fl (80-100); Mean Platelet Volume 9.7 fl (7.4-10.4); Monocytes Absolute Auto 0.7 K/mm3 (0.1-0.6); Monocytes Percent Auto 7.8 % (2.6-8.5); Neutrophils Absolute Auto 6.4 K/mm3 (1.3-6.7); Platelet Count Result 249 k/mm3 (150-375); Red Blood Count 4.52 M/mm3 (4.2-5.4); Red Cell Distribution Width 12.4 % (11.5-14.5); White Blood Count 9.5 K/mm3 (4.5-10.0)
[2021-05-09 20:25] LABS: Partial Thromboplastin Time 26.9 SECONDS (22.3-36.8)
[2021-05-09 20:31] LABS: Anion Gap 7 mmol/L (8-16); Blood Urea Nitrogen 15 mg/dL (7-17); Calcium 9.2 mg/dL (8.4-10.2); Carbon Dioxide 25 mmol/L (22-30); Chloride 106 mmol/L (98-107); Estimated CRCL calculation 146 ml/min; Estimated Glomerular Filt Rate > 60; Glucose 91 mg/dL (65-110); Potassium 3.9 mmol/L (3.4-5.0); Sodium 138 mmol/L (137-145)
[2021-05-09 20:40] LABS: Troponin I < 0.012 ng/mL (0.000-0.034)
== END 2021-05-09 21:00 | disposition home or self-care (01) ==
PROVIDERS: Emergency Provider Family Medicine; PCP Physician Assistant
DX: R07.89 Other chest pain (principal); F41.9 Anxiety disorder, unspecified; J45.909 Unspecified asthma, uncomplicated; R94.31 Abnormal electrocardiogram [ECG] [EKG]
CPT/HCPCS: 36415; 71046; 80048; 84484; 85025; 85610; 85730; 93005; 99284

== ENCOUNTER 2021-06-18 12:30 | Outpatient (RCR) | payer BC, SELFPAY ==
[2021-05-21 14:12] VITALS: BMI 52.8
[2021-06-18 12:45] VITALS: BMI 52.8
== END 2021-08-05 09:54 | disposition home or self-care (01) ==
LOC: ANHDMC 12:30
PROVIDERS: PCP Physician Assistant; Visit Provider Physician Assistant
DX: E66.01 Morbid (severe) obesity due to excess calories (principal); Z68.43 Body mass index [BMI] 50.0-59.9, adult; Z71.3 Dietary counseling and surveillance
CPT/HCPCS: 97802; 97803

== ENCOUNTER 2021-09-19 09:55 | Emergency (ER) | payer BC, SELFPAY ==
--- NOTE | ~2021-09-19 | XR_ITS ---
EXAMINATION: XR chest 1V portable DATE: 09/19/2021 12:44 INDICATION: Chest tightness and nausea TECHNIQUE: frontal view of the chest was obtained. COMPARISON: Chest radiograph dated 05/09/2021 FINDINGS: The lungs remain clear with no focal airspace opacities, pulmonary edema, pleural effusion or pneumot horax. The cardiomediastinal silhouette is normal. Visualized bones and soft tissues are unremarkable . IMPRESSION: 1. No acute cardiopulmonary disease. Reviewed, dictated and finalized at location A. [place]
[2021-09-19 10:10] VITALS: BP 137/92; PULSE 101; RESP 16; TEMP 36.1; O2SAT 100
--- NOTE | 2021-09-19 11:23 | ED.GENADULT ---
HPI - General Adult General Chief complaint: Nausea/Vomiting/Diarrhea Stated complaint: N/V, covid exposure Time Seen by Provider: 09/19/21 11:12 History of Present Illness HPI narrative: 21-year-old female with history of asthma and vocal cord dysfunction presents to the emergency department for complaint of 2 days of nausea vomiting and diarrhea. Patient does also report associated chest pressure and abdominal pain. Patient states she did have COVID exposure starting approximately 2 days ago. Her foster sister that she lives with did test positive for COVID. Patient has not yet tested herself. Patient states she has been using her albuterol inhaler with no significant change in the chest pressure. Patient states she has been trying Zofran with no significant improvement in the nausea. Patient does report prior history of cholecystectomy. Related Data Home Medications Medication Instructions Recorded Confirmed albuterol sulfate 2 puff INHALATION QID PRN 03/30/20 03/30/20 epinephrine [EpiPen 2-Shaun] 06/24/20 Allergies Allergy/AdvReac Type Severity Reaction Status Date / Time coconut Allergy Unknown Anaphylaxis Verified 09/19/21 11:18 latex Allergy Unknown Rash Verified 09/19/21 11:18 Review of Systems Review of Systems: CONSTITUTIONAL: Denies fever, chills, or sweats. EYES: Denies visual changes, redness, or discharge. ENT: Denies rhinorrhea, congestion, sore throat, or otalgia. CARDIOVASCULAR: Some chest pressure RESPIRATORY: Denies cough or dyspnea. GASTROINTESTINAL: Upper abdominal pain with associated nausea vomiting and diarrhea GENITOURINARY: Denies dysuria or hematuria. SKIN: Denies rash or itching. MUSCULOSKELETAL: Denies back pain, joint pain, or myalgia. NEUROLOGIC: Denies headache, numbness, or weakness. PSYCHIATRIC: Denies anxiety or depression. [facility] Past Medical History Medical History (Updated 09/19/21 @ 13:09 by Bimal Goldstein MD) Asthma Vocal cord dysfunction Surgical History Surgical History No significant past surgical history Family History Family History Mother Hypertension Grandparent Hypertension Social History Social History Smoking status: Never smoker Second hand tobacco smoke exposure: Yes Alcohol intake: current Substance use: never Gender identity (if verbalized by the patient): Female Spiritual care concerns: No Exam Narrative: APPEARANCE: Well appearing, no pain in distress, well-nourished. HEAD: normocephalic, atraumatic. EYES: PERRLA/EOMI, conjunctivae clear. NOSE: Normal no drainage EARS:TMS clear with good light reflex. THROAT: Pharynx clear, no exudate. NECK: Supple. No adenopathy, no masses. RESPIRATORY: Airway patent, respirations nonlabored. Clear to auscultation bilaterally, no rales, rhonchi, wheezing. CARDIOVASCULAR: Regular rate and rhythm without murmurs rubs or gallops. ABDOMINAL: Soft, nontender, nondistended, normal bowel sounds MUSCULOSKELETAL: Moves all extremities. Strength/ROM intact, No edema, No calf tenderness. NEURO: Alert. Cranial nerves II through XII intact. SKIN: Warm, dry. Normal Color PSYCHIATRIC: Normal affect/mood. Course Course Emergency Course: Patient symptoms were improved with treatment. Patient was obtained and the results of her labs and imaging. All questions concerns were addressed and patient was in no distress at time of discharge from the emergency department. Vital Signs Vital signs: Vital Signs Temperature 96.9 F L 09/19/21 10:10 Pulse Rate 101 H 09/19/21 10:10 Respiratory Rate 16 09/19/21 10:10 Blood Pressure 137/92 H 09/19/21 10:10 Pulse Oximetry 100 09/19/21 10:10 Temperature 96.9 F L 09/19/21 10:10 Pulse Rate 101 H 09/19/21 10:10 Respiratory Rate 16 09/19/21 10:10 Blood Pressure 137/92 H 09/19/21 1
--- NOTE | 2021-09-19 11:28 | ECG_ITS ---
Measurements Intervals [employer] Rate: 83 P: 20 FL: 167 QRS: 28 QRSD: 79 T: 16 QT: 359 QTc: 424 Interpretive Statements SINUS RHYTHM LOW QRS VOLTAGE IN PRECORDIAL LEADS BASELINE ARTIFACT- I, II, III, AVR, AVL, AVF BORDERLINE ECG Electronically Signed On 09-19-2021 12:55:53 [employer] by Guru Whitley D.O.
[2021-09-19] MEDS: SODIUM CHLORIDE 0.9% IV 1,000 ML 999 ML IV CONT (11:31)
[2021-09-19] MEDS: ONDANSETRON INJ 4 MG/2 ML VIAL IV PUSH (11:31)
[2021-09-19 11:39] LABS: Basophils Percent Auto 0.1 % (0.2-1.2); Eosinophils Absolute Auto 0.2 K/mm3 (0-0.3); Eosinophils Percent Auto 1.3 % (0-4.4); Hemoglobin 14.6 g/dL (12.0-15.0); Immature Granulocyte Absolute 0.05 K/mm3 (0.00-0.031); Immature Granulocyte Percent A 0.3 % (0-0.5); Lymphocytes Absolute Auto 1.23 K/mm3 (0.9-3.2); Lymphocytes Percent Auto 8.6 % (18.3-44.2); Mean Corpuscular Hemoglobin 30.7 pg (26-34); Mean Corpuscular Volume 90.5 fl (80-100); Mean Platelet Volume 9.3 fl (7.4-10.4); Monocytes Absolute Auto 0.9 K/mm3 (0.1-0.6); Monocytes Percent Auto 5.9 % (2.6-8.5); Neutrophils Percent Auto 83.8 % (45.5-73.1); Platelet Count Result 244 k/mm3 (150-375); Red Blood Count 4.75 M/mm3 (4.2-5.4); Red Cell Distribution Width 12.4 % (11.5-14.5); White Blood Count 14.4 K/mm3 (4.5-10.0)
[2021-09-19 11:48] LABS: Alanine Aminotransferase 19 U/L (4-35); Albumin Level 4.3 g/dL (3.5-5.1); Alkaline Phosphatase 69 U/L (38-126); Anion Gap 9 mmol/L (8-16); Aspartate Amino Transferase 25 U/L (14-36); Bilirubin,Total 0.8 mg/dL (0.2-1.3); Blood Urea Nitrogen 13 mg/dL (7-17); Calcium 9.2 mg/dL (8.4-10.2); Carbon Dioxide 23 mmol/L (22-30); Chloride 106 mmol/L (98-107); Estimated CRCL calculation 122 ml/min; Estimated Glomerular Filt Rate > 60; Glucose 118 mg/dL (65-110); Potassium 4.2 mmol/L (3.4-5.0); Sodium 138 mmol/L (137-145)
[2021-09-19 12:00] LABS: Add Urine Microscopic? YES; Appearance Urine Cloudy (Clear); Bacteria Urine Trace /hpf; Bilirubin Urine Negative (Negative); Blood Urine Negative (Negative); Color Urine Yellow (Yellow); Glucose Urine UA Negative (Negative); Ketones Urine Trace mg/dL (Negative); Leukocyte Esterase Ur Trace LEU/UL (Negative); Mucus Urine Heavy /lpf; Nitrate Urine Negative (Negative); Protein Urine 2+ mg/dL (Negative); Squamous Epithelial Cell Urine Many /hpf (Few); Urobilinogen Urine Negative mg/dL (<2.0)
[2021-09-19 20:41] LABS: SARS-CoV-2 RNA PCR Negative
== END 2021-09-19 13:20 | disposition home or self-care (01) ==
PROVIDERS: Emergency Provider Emergency Medicine; PCP Physician Assistant
DX: R11.2 Nausea with vomiting, unspecified (principal); R07.89 Other chest pain; Z20.822 Contact with and (suspected) exposure to COVID-19; J45.909 Unspecified asthma, uncomplicated
CPT/HCPCS: 36415; 71045; 80053; 81001; 81025; 85025; 87086; 87088; 93005; 96361; 96374; 99284; C9803; J2405; J7030; U0003; U0005

== ENCOUNTER 2021-10-16 16:36 | Emergency (ER) | payer BC, SELFPAY ==
--- NOTE | 2021-10-16 16:38 | ED.EAR ---
HPI - Ear Problem General Chief complaint: Ear Stated complaint: EARACHE Time Seen by Provider: 10/16/21 16:41 Source: patient and RN notes reviewed Mode of arrival: ambulatory Limitations: no limitations History of Present Illness HPI Narrative: 21-year-old female presents with concern for left ear pain. She reports for 3 days she has had nasal drainage, shortness of breath, left ear pain. She reports in the morning she has nasal congestion. She denies any cough, sore throat. She reports she is vaccinated for COVID. She denies any known sick contacts. She denies any [id number] intervention. She denies drainage from the ear. Complaint: ear pain Related Data Home Medications Medication Instructions Recorded Confirmed albuterol sulfate 2 puff INHALATION QID PRN 03/30/20 03/30/20 epinephrine [EpiPen 2-Shaun] 06/24/20 buspirone mg 10/16/21 fluticasone propionate [Flovent INHALATION 10/16/21 10/16/21 HFA] sertraline mg 10/16/21 Allergies Allergy/AdvReac Type Severity Reaction Status Date / Time coconut Allergy Unknown Anaphylaxis Verified 09/19/21 11:18 latex Allergy Unknown Rash Verified 09/19/21 11:18 Review of Systems Review of Systems: CONSTITUTIONAL: Denies malaise, chills, sweats, or fever. EYES: Denies visual changes, redness, or discharge. ENT: Reports rhinorrhea, congestion, left ear pain. Denies sinus pain, and sore throat. CARDIOVASCULAR: Denies chest pain, palpitations, or edema. RESPIRATORY: Denies cough. Reports dyspnea. GASTROINTESTINAL: Denies abdominal pain, nausea, vomiting, diarrhea SKIN: Denies rash or itching. MUSCULOSKELETAL: Denies myalgia. NEUROLOGIC: Denies headache. All systems reviewed & are unremarkable except as noted in HPI and below PMFSH Past Medical History Medical History (Updated 10/16/21 @ 16:55 by Mckenzie Solis NP) Asthma Vocal cord dysfunction Surgical History Surgical History No significant past surgical history Family History Family History Mother Hypertension Grandparent Hypertension Social History Social History Smoking status: Never smoker Second hand tobacco smoke exposure: Yes Alcohol intake: current Substance use: never Gender identity (if verbalized by the patient): Female Spiritual care concerns: No Comments At time of signature, agree with nursing past medical, surgical, social and family history. There is no relevant family history pertinent to the presenting complaint Exam Narrative: GENERAL: Well-appearing, well-nourished, and in no acute distress. HEAD: Normocephalic EYES: PERRLA, conjunctivae clear ENT: Nares clear, clear discharge. Mucous membranes moist. TM pearly mann with dull light reflex bilaterally; no tragal tenderness. Oropharynx not erythematous without lesions. Tonsils not enlarged and without exudate, no drooling, no hoarseness, no trismus, uvula midline. NECK: Supple. No lymphadenopathy CHEST: Clear to auscultation, breath sounds equal. No wheezing, rhonchi, rales, or stridor. No respiratory distress, speaks in full sentences. HEART: Regular rate and rhythm. No murmur heard. SKIN: Warm, dry, no rash. NEURO: Alert and oriented x3. PSYCH: Normal mood and affect Course Course Emergency Course: Patient is aware of diagnosis, understands and agrees to treatment plan. Anticipatory guidance given. Patient agrees to follow-up as directed and is aware of reasons to seek care at the emergency department. Portions of this record may have been created with voice recognition software Level of Care: Express Care Visit Vital Signs Vital signs: Reviewed. Medical Decision Making MDM Narrative Medical decision making narrative: Differential diagnosis considered: Gzt virus, strep pharyngitis, allergic rhinitis, upper respiratory tract infection
[2021-10-16 16:44] VITALS: BP 132/71; PULSE 89; RESP 16; TEMP 36.9; O2SAT 97
== END 2021-10-16 17:12 | disposition home or self-care (01) ==
PROVIDERS: Emergency Provider Nurse Practitioner; PCP Physician Assistant
DX: J06.9 Acute upper respiratory infection, unspecified (principal); Z20.822 Contact with and (suspected) exposure to COVID-19; J45.909 Unspecified asthma, uncomplicated
CPT/HCPCS: 87426; 99213; C9803; G0463

== ENCOUNTER 2021-10-18 10:15 | Emergency (ER) | payer BC, SELFPAY ==
[2021-10-18 10:23] VITALS: BP 136/70; PULSE 82; RESP 16; TEMP 36.4; O2SAT 100
[2021-10-18 10:28] VITALS: BP 136/70; PULSE 82; RESP 16; TEMP 36.4; O2SAT 100
--- NOTE | 2021-10-18 10:34 | ED.EXTPRO ---
HPI - Extremity Problem General Chief complaint: Extremity Problem,Nontraumatic Stated complaint: Left arm and neck pain Time Seen by Provider: 10/18/21 10:34 Source: patient and RN notes reviewed Mode of arrival: ambulatory Limitations: no limitations History of Present Illness HPI Narrative: 21 year old female with complaints of left arm and neck pain which started last evening with increased pain noted this morning. 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 Patient reports increased pain to her left shoulder, neck, and scapula with movement of left arm. Patient denies any tingling or numbness to left arm with strong pulses to left arm. Patient is able to move neck on own power but with increased discomfort. patient report that she has taken Ibuprofen, used heating pad and also has been using Biofreeze to upper scapular region. Location: left and upper extremity Related Data Home Medications Medication Instructions Recorded Confirmed buspirone 10 mg PO TID 10/16/21 10/18/21 sertraline 200 mg PO DAILY 10/16/21 10/18/21 clonidine HCl 0.1 mg PO DAILY 10/18/21 10/18/21 prazosin 2 mg PO HS 10/18/21 10/18/21 Allergies Allergy/AdvReac Type Severity Reaction Status Date / Time coconut Allergy Unknown Anaphylaxis Verified 10/18/21 10:23 latex Allergy Unknown Rash Verified 10/18/21 10:23 Review of Systems Review of Systems: CONSTITUTIONAL: Denies fever, chills, or sweats. EYES: Denies visual changes, redness, or discharge. ENT: Denies rhinorrhea, congestion, sore throat, or otalgia. CARDIOVASCULAR: Denies chest pain, palpitations, or edema. RESPIRATORY: Denies cough or dyspnea. GASTROINTESTINAL: Denies abdominal pain, nausea, vomiting, or diarrhea. GENITOURINARY: Denies dysuria or hematuria. SKIN: Denies rash or itching. MUSCULOSKELETAL: Positive for left upper back scapular region) pain into left neck and into top of left shoulder, or myalgia. NEUROLOGIC: Denies headache, numbness, or weakness. PSYCHIATRIC: Positive history of anxiety or depression. All systems reviewed & are unremarkable except as noted in HPI and below PMFSH Past Medical History Medical History (Updated 10/18/21 @ 14:38 by Annie Morejon NP) ADHD (attention deficit hyperactivity disorder) Anxiety and depression Asthma Vocal cord dysfunction Surgical History Surgical History No significant past surgical history Family History Family History Mother Hypertension Grandparent Hypertension Social History Social History Smoking status: Never smoker Second hand tobacco smoke exposure: Yes Alcohol intake: current Substance use: never Gender identity (if verbalized by the patient): Female Spiritual care concerns: No Comments At time of signature, agree with nursing past medical, surgical, social and family history. There is no relevant family history pertinent to the presenting complaint Exam Narrative: GENERAL: Well-appearing, well-nourished, and in no acute distress. HEAD: Normocephalic, atraumatic. EYES: PERRLA and EOMI. ENT: Nares clear, no rhinorrhea or epistaxis. Mucous membranes moist. NECK: Supple,pain with movement of neck,no lymphadenopathy CHEST: Clear to auscultation. No respiratory distress.SAO2 100% on room air HEART: Regular rate and rhythm. No murmur heard. Normal peripheral pulses. ABDOMEN: Soft, nontender, nondistended, normal active bowel sounds. EXTREMITIES: Painful left scapular area left neck and left upper shoulder with increase pain with range of motion. No edema. SKIN: Warm, dry, no rash. NEURO: No focal deficits. Alert and oriented x3. Course Course Level of Care: Ex
== END 2021-10-18 10:59 | disposition home or self-care (01) ==
PROVIDERS: Emergency Provider Registered Nurse; PCP Physician Assistant
DX: M25.512 Pain in left shoulder (principal); M54.2 Cervicalgia; J45.909 Unspecified asthma, uncomplicated; F41.9 Anxiety disorder, unspecified; F32.A Depression, unspecified; F90.9 Attention-deficit hyperactivity disorder, unspecified type
CPT/HCPCS: 99213; G0463

== ENCOUNTER 2021-11-04 09:20 | Emergency (ER) | payer BC, SELFPAY ==
--- NOTE | ~2021-11-04 | CT_ITS ---
EXAMINATION: CT abdomen pelvis w con DATE: 11/04/2021 10:03 INDICATION: Generalized abdominal pain. TECHNIQUE: Computed tomography (CT) of the abdomen and pelvis was performed with 100 mL Omnipaque 350 intravenous contrast. Automated exposure control and iterative reconstruction technique were employe d. The dose-length product was 1576.68 mGy-cm. COMPARISON: CT abdomen and pelvis 06/24/2020 FINDINGS: The visualized portions of the lung bases demonstrate minimal atelectasis. No pleural effus ion. The heart size is normal. No pericardial effusion. Again seen is a 9 mm low-attenuation lesion i n right hepatic lobe, likely benign. The gallbladder is absent. The spleen, pancreas, adrenal glands, and kidneys are normal. There are no dilated loops of bowel. The appendix is normal. There are no pa thologically enlarged lymph nodes. There is no free intraperitoneal fluid. There is mild thoracolumba r spondylosis. IMPRESSION: 1. No etiology for the patient's symptoms. Reviewed, dictated and finalized at location A. [employer]
[2021-11-04 09:29] VITALS: BP 128/69; PULSE 97; RESP 18; TEMP 37.2; O2SAT 98
[2021-11-04 09:44] LABS: Basophils Percent Auto 0.2 % (0.2-1.2); Eosinophils Absolute Auto 0.2 K/mm3 (0-0.3); Eosinophils Percent Auto 1.7 % (0-4.4); Hematocrit 43.4 % (37.0-47.0); Hemoglobin 14.9 g/dL (12.0-15.0); Immature Granulocyte Absolute 0.04 K/mm3 (0.00-0.031); Immature Granulocyte Percent A 0.4 % (0-0.5); Lymphocytes Absolute Auto 0.98 K/mm3 (0.9-3.2); Lymphocytes Percent Auto 8.6 % (18.3-44.2); Mean Corpuscular HGB Conc 34.3 g/dl (32-36); Mean Corpuscular Hemoglobin 30.8 pg (26-34); Mean Corpuscular Volume 89.7 fl (80-100); Mean Platelet Volume 9.3 fl (7.4-10.4); Monocytes Absolute Auto 0.8 K/mm3 (0.1-0.6); Monocytes Percent Auto 6.9 % (2.6-8.5); Neutrophils Absolute Auto 9.3 K/mm3 (1.3-6.7); Neutrophils Percent Auto 82.2 % (45.5-73.1); Platelet Count Result 234 k/mm3 (150-375); Red Blood Count 4.84 M/mm3 (4.2-5.4); White Blood Count 11.3 K/mm3 (4.5-10.0)
[2021-11-04 09:51] LABS: Add Urine Microscopic? YES; Appearance Urine Clear (Clear); Bacteria Urine Trace /hpf; Bilirubin Urine Negative (Negative); Blood Urine 1+ (Negative); Color Urine Yellow (Yellow); Glucose Urine UA Negative (Negative); Ketones Urine Negative (Negative); Leukocyte Esterase Ur Negative LEU/UL (Negative); Mucus Urine Rare /lpf; Nitrate Urine Negative (Negative); Protein Urine Negative (Negative); RBC Urine 0-2 /hpf (0-2); Specific Grav Ur 1.024 (1.001-1.035); Squamous Epithelial Cell Urine Few /hpf (Few); Urobilinogen Urine Negative mg/dL (<2.0); WBC Urine 0-3 /hpf
[2021-11-04 09:52] LABS: Alanine Aminotransferase 23 U/L (4-35); Albumin Level 4.1 g/dL (3.5-5.1); Alkaline Phosphatase 66 U/L (38-126); Anion Gap 7 mmol/L (8-16); Aspartate Amino Transferase 28 U/L (14-36); Bilirubin,Total 0.8 mg/dL (0.2-1.3); Blood Urea Nitrogen 11 mg/dL (7-17); Calcium 8.2 mg/dL (8.4-10.2); Carbon Dioxide 20 mmol/L (22-30); Chloride 110 mmol/L (98-107); Estimated CRCL calculation 186 ml/min; Estimated Glomerular Filt Rate > 60; Glucose 99 mg/dL (65-110); Lipase 48 U/L (23-300); Potassium 3.9 mmol/L (3.4-5.0); Sodium 137 mmol/L (137-145)
[2021-11-04] MEDS: MORPHINE SULFATE (*CRX) 4 MG/ML INJ IV PUSH (10:05)
[2021-11-04] MEDS: SODIUM CHLORIDE 0.9% IV 2,000 ML 999 ML IV CONT (10:06)
[2021-11-04] MEDS: ONDANSETRON INJ 4 MG/2 ML VIAL 8 MG IV PUSH (10:06)
--- NOTE | 2021-11-04 10:22 | ED.GENADULT ---
HPI - General Adult General Chief complaint: Nausea/Vomiting/Diarrhea Stated complaint: n/v/d Time Seen by Provider: 11/04/21 09:44 Source: patient Mode of arrival: ambulatory Limitations: no limitations History of Present Illness HPI narrative: Patient is 21 years old white female presented to the ED with nausea, vomiting, diarrhea and abdominal pain that started last night. Vomiting about 4 times, diarrhea about 7 time. Patient denies any fever or chills. Patient denies sick contacts. History of anxiety, GERD, insomnia, cholecystectomy, patient does not smoke, drinks occasionally, Related Data Home Medications Medication Instructions Recorded Confirmed buspirone 10 mg PO TID 10/16/21 10/18/21 sertraline 200 mg PO DAILY 10/16/21 10/18/21 clonidine HCl 0.1 mg PO DAILY 10/18/21 10/18/21 prazosin 2 mg PO HS 10/18/21 10/18/21 Allergies Allergy/AdvReac Type Severity Reaction Status Date / Time coconut Allergy Unknown Anaphylaxis Verified 11/04/21 09:34 latex Allergy Unknown Rash Verified 11/04/21 09:34 Review of Systems Review of Systems: CONSTITUTIONAL: Denies fever, chills, or sweats. EYES: Denies visual changes, redness, or discharge. ENT: Denies rhinorrhea, congestion, sore throat, or otalgia. CARDIOVASCULAR: Denies chest pain, palpitations, or edema. RESPIRATORY: Denies cough or dyspnea. GASTROINTESTINAL: Denies abdominal pain, nausea, vomiting, or diarrhea. GENITOURINARY: Denies dysuria or hematuria. SKIN: Denies rash or itching. MUSCULOSKELETAL: Denies back pain, joint pain, or myalgia. NEUROLOGIC: Denies headache, numbness, or weakness. PSYCHIATRIC: Denies anxiety or depression. [facility] Past Medical History Medical History (Updated 11/04/21 @ 11:02 by Charity Levin MD) ADHD (attention deficit hyperactivity disorder) Anxiety and depression Asthma Vocal cord dysfunction Surgical History Surgical History No significant past surgical history Family History Family History Mother Hypertension Grandparent Hypertension Social History Social History Smoking status: Never smoker Second hand tobacco smoke exposure: Yes Alcohol intake: current Substance use: never Gender identity (if verbalized by the patient): Female Spiritual care concerns: No Exam Narrative: General appearance: Well-developed, well-nourished Skin: Normal color Head: Normocephalic, nontraumatic Eyes: Clear conjunctiva ENT: Oropharynx normal, ears normal, nose normal Neck: Supple, nontender Chest and respiratory: Airway patent, no respiratory distress, no accessory muscle use Heart: Regular rate/rhythm Abdomen: Soft, diffuse tenderness,, no organomegaly, quiet bowel sounds Vascular: Normal peripheral pulses, normal capillary refill. Musculoskeletal: Normal range of motion, nontender back Neurologic: Alert and oriented ?3, SURVEY CHIEF is normal as tested, no gross motor deficit Course Course Emergency Course: Stable Viral gastroenteritis is my concern. Work-up did not show any significant findings to explain patient condition. Vital Signs Vital signs: Vital Signs Temperature 37.2 C 11/04/21 09:29 Pulse Rate 97 11/04/21 09:29 Respiratory Rate 18 11/04/21 09:29 Blood Pressure 128/69 11/04/21 09:29 Pulse Oximetry 98 11/04/21 09:29 Temperature 37.2 C 11/04/21 09:29 Pulse Rate 97 11/04/21 09:29 Respiratory Rate 18 11/04/21 09:29 Blood Pressure 128/69 11/04/21 09:29 Pulse Oximetry 98 11/04/21 09:29 Medical Decision Making Differe
[2021-11-04] MEDS: DICYCLOMINE HCL INJ 20 MG/2 ML VIAL IM (11:10)
[2021-11-04] MEDS: KETOROLAC 30 MG/ML VIAL (*BKC) IV PUSH (11:11)
[2021-11-04 12:19] VITALS: BP 127/81; PULSE 93; RESP 16; O2SAT 100
== END 2021-11-04 12:24 | disposition home or self-care (01) ==
PROVIDERS: Emergency Provider Emergency Medicine; PCP Physician Assistant
DX: K52.9 Noninfective gastroenteritis and colitis, unspecified (principal); J45.909 Unspecified asthma, uncomplicated; K21.9 Gastro-esophageal reflux disease without esophagitis; F41.9 Anxiety disorder, unspecified; F90.9 Attention-deficit hyperactivity disorder, unspecified type; F32.A Depression, unspecified
CPT/HCPCS: 36415; 74177; 80053; 81001; 81025; 83690; 85025; 96361; 96372; 96374; 96375; 99284; J0500; J1885; J2270; J2405; J7030; Q9967

== ENCOUNTER 2022-02-11 07:31 | Emergency (ER) | payer BC, SELFPAY ==
--- NOTE | ~2022-02-11 | CT_ITS ---
EXAMINATION: CT abdomen pelvis wo con DATE: 02/11/2022 09:14 INDICATION: Right upper quadrant abdominal pain. TECHNIQUE: Computed tomography (CT) of the abdomen and pelvis was performed without intravenous contr ast. Automated exposure control and iterative reconstruction technique were employed. The dose-length product was 1555.90 mGy-cm. COMPARISON: CT abdomen and pelvis 11/04/2021 FINDINGS: The visualized portions of the lung bases demonstrate mild atelectasis. No pleural effusion . The heart size is normal. No pericardial effusion. The liver is normal. There are changes of cholec ystectomy. The spleen, pancreas, adrenal glands, and kidneys are normal. There is no urolithiasis. Th ere are no dilated loops of bowel. The appendix is normal. There are no pathologically enlarged lymph nodes. There is no free intraperitoneal fluid. There is mild thoracolumbar spondylosis. IMPRESSION: 1. No etiology for the patient's symptoms. Reviewed, dictated and finalized at location A.
[2022-02-11 07:38] VITALS: BP 142/81; PULSE 108; RESP 16; TEMP 36.6; O2SAT 98
[2022-02-11 08:00] LABS: Basophils Percent Auto 0.5 % (0.2-1.2); Eosinophils Absolute Auto 0.1 K/mm3 (0-0.3); Eosinophils Percent Auto 1.9 % (0-4.4); Hematocrit 44.2 % (37.0-47.0); Hemoglobin 14.8 g/dL (12.0-15.0); Immature Granulocyte Absolute 0.02 K/mm3 (0.00-0.031); Immature Granulocyte Percent A 0.3 % (0-0.5); Immature Platelet Fraction Pct 2.2 % (0.9-11.2); Lymphocytes Percent Auto 15.6 % (18.3-44.2); Mean Corpuscular HGB Conc 33.5 g/dl (32-36); Mean Corpuscular Hemoglobin 30.6 pg (26-34); Mean Corpuscular Volume 91.5 fl (80-100); Mean Platelet Volume 10.1 fl (7.4-10.4); Monocytes Absolute Auto 0.5 K/mm3 (0.1-0.6); Neutrophils Absolute Auto 4.2 K/mm3 (1.3-6.7); Neutrophils Percent Auto 72.7 % (45.5-73.1); Platelet Count Result 166 k/mm3 (150-375); Red Blood Count 4.83 M/mm3 (4.2-5.4); Red Cell Distribution Width 12.8 % (11.5-14.5); White Blood Count 5.8 K/mm3 (4.5-10.0)
--- NOTE | 2022-02-11 08:03 | ED.ABDPAIN ---
HPI - Abdominal Pain General Chief Complaint: Abdominal Pain Stated Complaint: right flank pain Time Seen by Provider: 02/11/22 07:36 History of Present Illness HPI narrative: 21-year-old female history of gallbladder disease presents to the emergency department for evaluation of right upper quadrant pain. Patient states the pain has been intermittent over the last 3 days. Patient is worsened with movement. Patient describes a sharp pain. Patient denies any chest pain or shortness of breath. Patient denies any falls or injuries. Patient does have associated nausea but denies vomiting. Patient denies any urinary symptoms. Patient had her gallbladder removed approximately 2 years ago. Related Data Home Medications Medication Instructions Recorded Confirmed buspirone 10 mg tablet 10 mg PO TID 10/16/21 10/18/21 sertraline 100 mg tablet 200 mg PO DAILY 10/16/21 10/18/21 clonidine HCl 0.1 mg tablet 0.1 mg PO DAILY 10/18/21 10/18/21 prazosin 2 mg capsule 2 mg PO HS 10/18/21 10/18/21 Allergies Allergy/AdvReac Type Severity Reaction Status Date / Time coconut Allergy Unknown Anaphylaxis Verified 02/11/22 07:42 latex Allergy Unknown Rash Verified 02/11/22 07:42 Review of Systems Review of Systems: CONSTITUTIONAL: Denies fever, chills, or sweats. EYES: Denies visual changes, redness, or discharge. ENT: Denies rhinorrhea, congestion, sore throat, or otalgia. CARDIOVASCULAR: Denies chest pain, palpitations, or edema. RESPIRATORY: Denies cough or dyspnea. GASTROINTESTINAL: See HPI GENITOURINARY: Denies dysuria or hematuria. SKIN: Denies rash or itching. MUSCULOSKELETAL: Denies back pain, joint pain, or myalgia. NEUROLOGIC: Denies headache, numbness, or weakness. [facility] Past Medical History Medical History (Updated 02/11/22 @ 18:29 by Bimal Goldstein MD) ADHD (attention deficit hyperactivity disorder) Anxiety and depression Asthma Vocal cord dysfunction Surgical History Surgical History No significant past surgical history Family History Family History Mother Hypertension Grandparent Hypertension Social History Social History (Reviewed 10/18/21 @ 14:38 by ALEXUS Motley Smoking status: Never smoker Second hand tobacco smoke exposure: Yes Alcohol intake: current Substance use: never Gender identity (if verbalized by the patient): Female Spiritual care concerns: No Exam Narrative: APPEARANCE: Well appearing, no pain, no distress, well-nourished. HEAD: normocephalic, atraumatic. EYES: PERRLA/EOMI, conjunctivae clear. NOSE: Normal no drainage NECK: Supple. No adenopathy, no masses. RESPIRATORY: Airway patent, respirations nonlabored. Clear to auscultation bilaterally, no rales, rhonchi, wheezing. CARDIOVASCULAR: Regular rate and rhythm without murmurs rubs or gallops. ABDOMINAL: Soft, minimal right-sided abdominal tenderness to palpation. MUSCULOSKELETAL: Moves all extremities. Strength/ROM intact. NEURO: Alert. Cranial nerves II through XII intact. SKIN: Warm, dry. Normal Color Course Course Emergency Course: Patient reports her symptoms are improved. Patient denies any chest pain or shortness of breath. Patient suspects that this is a muscular injury. Patient has no leukocytosis. Patient is not tachycardic and not hypoxic. Patient's bilirubin is mildly elevated at 1.6. Mild elevations in AST and ALT. Patient does have prior history of cholecystectomy. UA is not concerning for urinary tract infection. Patient was updated on the results of her work-up and on reasons to return to the emergency department. Vital Signs Vital signs: Vital Signs Temperature 97.9 F 02/11/22 07:38 Pulse Rate 108 H 02/11/22 07:38 Respiratory Rate 16 02/11/22 07:38 Blood Pressure 142/81 H 02/11/22 07:38 Pulse Oximetry 98 02/11/22 07:38 Oxygen Delivery Room Air
[2022-02-11 08:07] LABS: Bacteria Urine Trace /hpf; Mucus Urine Moderate /lpf; Squamous Epithelial Cell Urine Many /hpf (Few); WBC Urine 0-3 /hpf
[2022-02-11] MEDS: SODIUM CHLORIDE 0.9% IV 1,000 ML 999 ML IV CONT (08:10)
[2022-02-11] MEDS: ONDANSETRON INJ 4 MG/2 ML VIAL IV PUSH (08:10)
[2022-02-11 08:12] LABS: Add Urine Microscopic? YES; Appearance Urine Clear (Clear); Bilirubin Urine Negative (Negative); Blood Urine Trace-Intact (Negative); Color Urine Yellow (Yellow); Glucose Urine UA Negative (Negative); Ketones Urine Negative (Negative); Leukocyte Esterase Ur Trace LEU/UL (Negative); Nitrate Urine Negative (Negative); Protein Urine Negative (Negative); Specific Grav Ur 1.025 (1.001-1.035); pH Urine 6.5 (5.0-9.0)
[2022-02-11 08:13] LABS: Alanine Aminotransferase 48 U/L (6-35); Albumin Level 4.6 g/dL (3.5-5.1); Alkaline Phosphatase 58 U/L (38-126); Anion Gap 7 mmol/L (8-16); Aspartate Amino Transferase 72 U/L (14-36); Bilirubin,Total 1.6 mg/dL (0.2-1.3); Blood Urea Nitrogen 11 mg/dL (7-17); Calcium 8.8 mg/dL (8.4-10.2); Carbon Dioxide 19 mmol/L (22-30); Chloride 111 mmol/L (98-107); Estimated CRCL calculation 137 ml/min; Estimated Glomerular Filt Rate > 60; Glucose 99 mg/dL (65-110); Potassium 4.7 mmol/L (3.4-5.0); Sodium 137 mmol/L (137-145)
[2022-02-11 08:22] LABS: Lipase 69 U/L (23-300)
== END 2022-02-11 10:43 | disposition home or self-care (01) ==
PROVIDERS: Emergency Provider Emergency Medicine; PCP Physician Assistant
DX: R10.9 Unspecified abdominal pain (principal); F41.9 Anxiety disorder, unspecified; F32.9 Major depressive disorder, single episode, unspecified; J45.909 Unspecified asthma, uncomplicated; F90.9 Attention-deficit hyperactivity disorder, unspecified type
CPT/HCPCS: 36415; 74176; 80053; 81001; 81025; 83690; 85025; 85055; 96361; 96374; 99284; J2405; J7030

== ENCOUNTER 2022-03-03 08:02 | Emergency (ER) | payer BC, SELFPAY ==
[2022-03-03 08:12] VITALS: BP 136/75; PULSE 93; RESP 20; TEMP 37.2; O2SAT 100
--- NOTE | 2022-03-03 08:13 | ED.URI ---
HPI - URI/Sore Throat General Chief Complaint: Upper Respiratory Infection Stated Complaint: Sore Throat Source: patient, RN notes reviewed and old records reviewed Mode of arrival: ambulatory Limitations: no limitations History of Present Illness HPI Narrative: 21 year old female who presents to [facility] with complaints of sore throat with exposure to strep one week ago. Patient reports that she was exposed to COVID on the has had COVID vaccinations X2 and Flu shot and also had COVID in October or November of this year. Patient reports a dry cough and some shortness of breath, denies any known fevers, chills or sweats, denies any nasal congestion. Lungs clear to auscultation with no tachypnea noted. MD elicited complaint: sore throat Onset (ago): week(s) (1) Treatments prior to arrival: other (Benadryl) Related Data Home Medications Medication Instructions Recorded Confirmed buspirone 10 mg tablet 10 mg PO TID 10/16/21 10/18/21 sertraline 100 mg tablet 200 mg PO DAILY 10/16/21 10/18/21 clonidine HCl 0.1 mg tablet 0.1 mg PO DAILY 10/18/21 10/18/21 prazosin 2 mg capsule 2 mg PO HS 10/18/21 10/18/21 albuterol 90 mcg/actuation aerosol mcg inhalation 03/03/22 03/03/22 inhaler fluticasone propionate 110 1 puff inhalation Q12H 03/03/22 03/03/22 mcg/actuation HFA aerosol inhaler (Flovent HFA) Allergies Allergy/AdvReac Type Severity Reaction Status Date / Time coconut Allergy Unknown Anaphylaxis Verified 03/03/22 08:16 latex Allergy Unknown Rash Verified 03/03/22 08:16 Review of Systems Review of Systems: CONSTITUTIONAL: Denies fever, chills, or sweats. EYES: Denies visual changes, redness, or discharge. ENT: Denies rhinorrhea, congestion,positive for sore throat, right otalgia. CARDIOVASCULAR: Denies chest pain, palpitations, or edema. RESPIRATORY: Positive for dry cough with stated dyspnea GASTROINTESTINAL: Denies abdominal pain, nausea, vomiting, or diarrhea. GENITOURINARY: Denies dysuria or hematuria. SKIN: Denies rash or itching. MUSCULOSKELETAL: Denies back pain, joint pain, or myalgia. NEUROLOGIC: Denies headache, numbness, or weakness. PSYCHIATRIC: Positive history of anxiety or depression. All systems reviewed & are unremarkable except as noted in HPI and below PMFSH Past Medical History Medical History ADHD (attention deficit hyperactivity disorder) Anxiety and depression Asthma Vocal cord dysfunction Surgical History Surgical History No significant past surgical history Family History Family History Mother Hypertension Grandparent Hypertension Social History Social History Smoking status: Never smoker Second hand tobacco smoke exposure: Yes Alcohol intake: current Substance use: never Gender identity (if verbalized by the patient): Female Spiritual care concerns: No Comments At time of signature, agree with nursing past medical, surgical, social and family history. There is no relevant family history pertinent to the presenting complaint Exam Narrative: GENERAL: Well-appearing, well-nourished, and in no acute distress. HEAD: Normocephalic, atraumatic. EYES: PERRLA and EOMI. ENT: Nares clear, no rhinorrhea or epistaxis. Mucous membranes moist. TM's normal with no redness or drainage good light reflex, throat with minimal redness, tonsils enlarged no lesions or exudates NECK: Supple. no lymphadenopathy CHEST: Clear to auscultation. No respiratory distress.SAO2 100% on room air HEART: Regular rate and rhythm. No murmur heard. Normal peripheral pulses. ABDOMEN: Soft, nontender, nondistended, normal active bowel sounds. EXTREMITIES: Normal range of motion. No edema. SKIN: Warm, dry, no rash. NEURO: No focal deficits. Alert and oriented x3. C
== END 2022-03-03 09:02 | disposition home or self-care (01) ==
PROVIDERS: Emergency Provider Registered Nurse; PCP Physician Assistant
DX: J06.9 Acute upper respiratory infection, unspecified (principal); J02.9 Acute pharyngitis, unspecified; Z20.822 Contact with and (suspected) exposure to COVID-19; J45.909 Unspecified asthma, uncomplicated; F41.9 Anxiety disorder, unspecified; F32.A Depression, unspecified
CPT/HCPCS: 87081; 87426; 87880; 99213; C9803; G0463

== ENCOUNTER 2022-05-20 10:42 | Emergency (ER) | payer BC, SELFPAY ==
--- NOTE | 2022-05-20 10:45 | ED.URI ---
HPI - URI/Sore Throat General Chief Complaint: Upper Respiratory Infection Stated Complaint: coughing, shortness of breath Time Seen by Provider: 05/20/22 10:46 Source: patient and RN notes reviewed History of Present Illness HPI Narrative: Patient is a 21-year-old female who presents the urgent care with complaints of cough and shortness of breath x1 week. Patient states that she does have a history of asthma and has been using her inhalers. Patient states that she has not had any wheezing and has not felt like she needed her nebulizer however she does not have any tubing, it is defective. Patient has been using DayQuil, NyQuil, Mucinex, Vicks. States that she is also developed a sore throat but denies of any fever, nausea, vomiting or headache. Patient states that she was told by her workplace that she needed a return to work note. No other acute complaints. No acute distress noted. Patient aware of the plan of care. Some parts of this dictation were generated by voice recognition software and may contain typographical and/or grammatical inaccuracies. Related Data Home Medications Medication Instructions Recorded Confirmed buspirone 10 mg tablet 10 mg PO TID 10/16/21 05/20/22 sertraline 100 mg tablet 200 mg PO DAILY 10/16/21 05/20/22 clonidine HCl 0.1 mg tablet 0.1 mg PO DAILY 10/18/21 05/20/22 prazosin 2 mg capsule 2 mg PO HS 10/18/21 05/20/22 fluticasone propionate 110 1 puff inhalation Q12H 03/03/22 05/20/22 mcg/actuation HFA aerosol inhaler (Flovent HFA) albuterol sulfate 2.5 mg/3 mL See Rx Instructions .Route 05/20/22 05/20/22 (0.083 %) solution for nebulization .COMPLEX PRN sob albuterol sulfate 90 mcg/actuation See Rx Instructions .Route 05/20/22 05/20/22 aerosol inhaler .COMPLEX PRN sob Allergies Allergy/AdvReac Type Severity Reaction Status Date / Time coconut Allergy Unknown Anaphylaxis Verified 05/20/22 11:03 latex Allergy Unknown Rash Verified 05/20/22 11:03 Review of Systems Review of Systems: CONSTITUTIONAL: Denies fever, chills, or sweats. EYES: Denies visual changes, redness, or discharge. ENT: Denies rhinorrhea, congestion, otalgia. Reports of sore throat CARDIOVASCULAR: Denies chest pain, palpitations, or edema. RESPIRATORY: Reports of cough with intermittent dyspnea GASTROINTESTINAL: Denies abdominal pain, nausea, vomiting, or diarrhea. GENITOURINARY: Denies dysuria or hematuria. SKIN: Denies rash or itching. MUSCULOSKELETAL: Denies back pain, joint pain, or myalgia. NEUROLOGIC: Denies headache, numbness, or weakness. All other systems reviewed are negative, except as documented in HPI. [facility] Past Medical History Medical History ADHD (attention deficit hyperactivity disorder) Anxiety and depression Asthma Vocal cord dysfunction Surgical History Surgical History No significant past surgical history Family History Family History Mother Hypertension Grandparent Hypertension Social History Social History Smoking status: Never smoker Second hand tobacco smoke exposure: Yes Alcohol intake: current Substance use: never Gender identity (if verbalized by the patient): Female Spiritual care concerns: No Comments At the time of my signature, I reviewed and agree with the nursing past medical, surgical, social, and family history. There is no relevant family history pertinent to the patient complaint. Exam Narrative: GENERAL: This is a well-nourished, well-developed patient, in no apparent distress. HEAD: normocephalic, atraumatic. EYES: PERRL. Sclera clear/white. Vision is grossly intact. EARS: External ears normal, auditory canals clear and without drainage, TMs normal without perforation. Hearing grossly intact. NOSE: External nose nor
[2022-05-20 10:48] VITALS: BP 147/79; PULSE 82; RESP 16; TEMP 36.6; O2SAT 100
== END 2022-05-20 11:20 | disposition home or self-care (01) ==
PROVIDERS: Emergency Provider Nurse Practitioner Family; PCP Nurse Practitioner Family
DX: J06.9 Acute upper respiratory infection, unspecified (principal); J02.9 Acute pharyngitis, unspecified; J45.909 Unspecified asthma, uncomplicated; F41.9 Anxiety disorder, unspecified; F32.A Depression, unspecified
CPT/HCPCS: 87081; 87880; 99213; G0463

== ENCOUNTER 2022-10-08 08:44 | Emergency (ER) | payer SELFPAY ==
--- NOTE | 2022-10-08 09:02 | ED.URI ---
HPI - URI/Sore Throat General Chief Complaint: Upper Respiratory Infection Stated Complaint: Sore Throat/Vomiting Time Seen by Provider: 10/08/22 09:02 Source: patient Mode of arrival: ambulatory Limitations: no limitations History of Present Illness HPI Narrative: 22-year-old female presents with complaint of sore throat, low-grade fever, upset stomach for [address] [facility] care. Vomited 1st day but has resolved. reports sore throat getting progressively worse. All systems reviewed and negative except as noted above. Related Data Home Medications Medication Instructions Recorded Confirmed buspirone 10 mg tablet 10 mg PO TID 10/16/21 05/20/22 sertraline 100 mg tablet 200 mg PO DAILY 10/16/21 05/20/22 clonidine HCl 0.1 mg tablet 0.1 mg PO DAILY 10/18/21 05/20/22 albuterol sulfate 2.5 mg/3 mL See Rx Instructions .Route 05/20/22 05/20/22 (0.083 %) solution for nebulization .COMPLEX PRN sob albuterol sulfate 90 mcg/actuation See Rx Instructions .Route 05/20/22 05/20/22 aerosol inhaler .COMPLEX PRN sob Allergies Allergy/AdvReac Type Severity Reaction Status Date / Time coconut Allergy Unknown Anaphylaxis Verified 05/20/22 11:03 latex Allergy Unknown Rash Verified 05/20/22 11:03 Review of Systems Review of Systems: CONSTITUTIONAL: Denies fever, chills, or sweats. EYES: Denies visual changes, redness, or discharge. ENT: Denies rhinorrhea, congestion . Reports sore throat. Denies otalgia. CARDIOVASCULAR: Denies chest pain, palpitations, or edema. RESPIRATORY: Denies cough or dyspnea. GASTROINTESTINAL: Denies abdominal pain, vomiting, or diarrhea. reports nausea. GENITOURINARY: Denies dysuria or hematuria. SKIN: Denies rash or itching. MUSCULOSKELETAL: Denies back pain, joint pain, or myalgia. NEUROLOGIC: Denies headache, numbness, or weakness. PSYCHIATRIC: Denies anxiety or depression. All other systems reviewed are negative, except as documented in HPI. REPLACED BY [facility] Past Medical History Medical History ADHD (attention deficit hyperactivity disorder) Anxiety and depression Asthma Vocal cord dysfunction Surgical History Surgical History No significant past surgical history Family History Family History Mother Hypertension Grandparent Hypertension Social History Social History Smoking status: Never smoker Second hand tobacco smoke exposure: Yes Alcohol intake: current Substance use: never Living arrangements: with family Occupation/Education: student Gender identity (if verbalized by the patient): Female Spiritual care concerns: No Comments At time of signature, agree with nursing past medical, surgical, social and family history. There is no relevant family history pertinent to the presenting complaint. Exam Narrative: GENERAL: This is a well-nourished, well-developed patient, in no apparent distress. HEAD: normocephalic, atraumatic. EYES: PERRL. Sclera clear/white. Vision is grossly intact. EARS: External ears normal, auditory canals clear and without drainage, TMs normal without perforation. Hearing grossly intact. NOSE: External nose normal with no obvious nasal discharge, nares without redness, no rhinorrhea. THROAT: Mucous membranes moist, Erythema and swelling to pharynx NECK: Neck supple, non-tender without lymphadenopathy, masses or thyromegaly. CARDIOVASCULAR: Regular rate and rhythm without murmurs, gallops, or rubs. RESPIRATORY: Clear to auscultation. Breath sounds equal bilaterally. No wheezes, rales, or rhonchi. SKIN: warm, Dry, intact with no suspicious lesions or rash, good texture and turgor. NEURO: awake, alert, and oriented to person, place and time. There were no obvious focal neurologic abnormalities. EXTREMITIES: No joint
[2022-10-08 09:06] VITALS: BP 119/70; PULSE 88; RESP 20; TEMP 37.1; O2SAT 100
--- NOTE | 2022-10-10 10:53 | ED.URI ---
HPI - URI/Sore Throat General Chief Complaint: Upper Respiratory Infection Stated Complaint: Sore Throat/Vomiting Time Seen by Provider: 10/08/22 09:02 Source: patient Mode of arrival: ambulatory Limitations: no limitations History of Present Illness HPI Narrative: 22 yo F presents with c/o sore throat for 3 days. Denies all other symptoms. Sore throat getting progressively worse. all systems reviewed and negative except as noted above. Related Data Home Medications Medication Instructions Recorded Confirmed buspirone 10 mg tablet 10 mg PO TID 10/16/21 05/20/22 sertraline 100 mg tablet 200 mg PO DAILY 10/16/21 05/20/22 clonidine HCl 0.1 mg tablet 0.1 mg PO DAILY 10/18/21 05/20/22 albuterol sulfate 2.5 mg/3 mL See Rx Instructions .Route 05/20/22 05/20/22 (0.083 %) solution for nebulization .COMPLEX PRN sob albuterol sulfate 90 mcg/actuation See Rx Instructions .Route 05/20/22 05/20/22 aerosol inhaler .COMPLEX PRN sob Allergies Allergy/AdvReac Type Severity Reaction Status Date / Time coconut Allergy Unknown Anaphylaxis Verified 05/20/22 11:03 latex Allergy Unknown Rash Verified 05/20/22 11:03 Review of Systems Review of Systems: CONSTITUTIONAL: Denies fever, chills, or sweats. EYES: Denies visual changes, redness, or discharge. ENT: Denies rhinorrhea, congestion. Reports sore throat. Denies otalgia. CARDIOVASCULAR: Denies chest pain, palpitations, or edema. RESPIRATORY: Denies cough or dyspnea. GASTROINTESTINAL: Denies abdominal pain, nausea, vomiting, or diarrhea. GENITOURINARY: Denies dysuria or hematuria. SKIN: Denies rash or itching. MUSCULOSKELETAL: Denies back pain, joint pain, or myalgia. NEUROLOGIC: Denies headache, numbness, or weakness. PSYCHIATRIC: Denies anxiety or depression. All other systems reviewed are negative, except as documented in HPI. COUNTS INCLUDE 234 BEDS AT THE [facility] Past Medical History Medical History ADHD (attention deficit hyperactivity disorder) Anxiety and depression Asthma Vocal cord dysfunction Surgical History Surgical History No significant past surgical history Family History Family History Mother Hypertension Grandparent Hypertension Social History Social History Smoking status: Never smoker Second hand tobacco smoke exposure: Yes Alcohol intake: current Substance use: never Living arrangements: with family Occupation/Education: student Gender identity (if verbalized by the patient): Female Spiritual care concerns: No Comments At time of signature, agree with nursing past medical, surgical, social and family history. There is no relevant family history pertinent to the presenting complaint. Exam Narrative: GENERAL: This is a well-nourished, well-developed patient, in no apparent distress. HEAD: normocephalic, atraumatic. EYES: PERRL. Sclera clear/white. Vision is grossly intact. EARS: External ears normal, auditory canals clear and without drainage, TMs normal without perforation. Hearing grossly intact. NOSE: External nose normal with no obvious nasal discharge, nares without redness, no rhinorrhea. THROAT: Mucous membranes moist, erythema swelling 2+ with exudate NECK: Neck supple, non-tender without lymphadenopathy, masses or thyromegaly. CARDIOVASCULAR: Regular rate and rhythm without murmurs, gallops, or rubs. RESPIRATORY: Clear to auscultation. Breath sounds equal bilaterally. No wheezes, rales, or rhonchi. SKIN: warm, Dry, intact with no suspicious lesions or rash, good texture and turgor. NEURO: awake, alert, and oriented to person, place and time. There were no obvious focal neurologic abnormalities. EXTREMITIES: No joint tenderness, effusion, or edema noted. Course Course Level of Care: Express Care Visit Vital Signs Shanna
== END 2022-10-08 09:14 | disposition home or self-care (01) ==
PROVIDERS: Emergency Provider Nurse Practitioner Family; PCP Physician Assistant
DX: J02.0 Streptococcal pharyngitis (principal); J45.909 Unspecified asthma, uncomplicated; F41.9 Anxiety disorder, unspecified; F32.A Depression, unspecified
CPT/HCPCS: 87880; 99213; G0463

== ENCOUNTER 2022-11-06 08:40 | Emergency (ER) | payer SELFPAY ==
[2022-11-06 08:51] VITALS: BP 130/82; PULSE 84; RESP 16; TEMP 36.7; O2SAT 99
--- NOTE | 2022-11-06 09:11 | ED.URI ---
HPI - URI/Sore Throat General Chief Complaint: Upper Respiratory Infection Stated Complaint: sore throat Time Seen by Provider: 11/06/22 09:10 Source: patient Mode of arrival: ambulatory Limitations: no limitations History of Present Illness HPI Narrative: patient is a 22-year-old female who presents with refresh sore throat, cough, nasal congestion, ear pain, headache since Thursday. patient states congestion has improved. patient has his throat spray, cough drops, and Tessalon Perles with no relief. patient states she had strep throat earlier this month and was treated with amoxicillin. Patient states her symptoms improved slightly but never completely went away. Patient has appointment November 11 with ENT doctor Mike for consultation to have her tonsils and adenoids removed. Related Data Home Medications Medication Instructions Recorded Confirmed buspirone 10 mg tablet 10 mg PO TID 10/16/21 11/06/22 sertraline 100 mg tablet 200 mg PO DAILY 10/16/21 11/06/22 clonidine HCl 0.1 mg tablet 0.1 mg PO DAILY 10/18/21 11/06/22 albuterol sulfate 2.5 mg/3 mL See Rx Instructions .Route 05/20/22 11/06/22 (0.083 %) solution for nebulization .COMPLEX PRN sob albuterol sulfate 90 mcg/actuation See Rx Instructions .Route 05/20/22 11/06/22 aerosol inhaler .COMPLEX PRN sob Allergies Allergy/AdvReac Type Severity Reaction Status Date / Time ac Allergy Intermediate Hives Verified 11/06/22 09:22 coconut Allergy Unknown Anaphylaxis Verified 11/06/22 08:45 latex Allergy Unknown Rash Verified 11/06/22 08:45 Review of Systems Review of Systems: CONSTITUTIONAL: Reports malaise, chills,and fever.? EYES: Denies visual changes, redness, or discharge.? ENT: denies rhinorrhea, congestion, sinus pain, otalgia reports sore throat.? CARDIOVASCULAR: Denies chest pain, palpitations, or edema.? RESPIRATORY: denies dyspnea.? reports cough GASTROINTESTINAL: Denies abdominal pain, nausea, vomiting, diarrhea? SKIN: Denies rash or itching.? MUSCULOSKELETAL: reports myalgia.? NEUROLOGIC: Denies headache All systems reviewed & are unremarkable except as noted in HPI and below PMFSH Past Medical History Medical History ADHD (attention deficit hyperactivity disorder) Anxiety and depression Asthma Vocal cord dysfunction Surgical History Surgical History No significant past surgical history Family History Family History Mother Hypertension Grandparent Hypertension Social History Social History Smoking status: Never smoker Second hand tobacco smoke exposure: Yes Alcohol intake: current Substance use: never Living arrangements: with family Occupation/Education: student Gender identity (if verbalized by the patient): Female Spiritual care concerns: No Comments At time of signature, agree with nursing past medical, surgical, social and family history. There is no relevant family history pertinent to the presenting complaint? Exam Narrative: GENERAL: Well-appearing, well-nourished, and in no acute distress.? HEAD: Normocephalic, atraumatic.? EYES: PERRLA, conjunctivae clear, and EOMI. No nystagmus.? ENT: Nares clear, turbinates pink, no rhinorrhea or epistaxis. Mucous membranes moist. TM pearly mann with sharp light reflex bilaterally; no tragal tenderness. Oropharynx with erythema without lesions. Tonsils 3+ enlargement and with mild exudate.? uvula midline. NECK: Supple. No lymphadenopathy. CHEST: No respiratory distress. Clear to auscultation.? No bony deformities, no asymmetry. Speaks in full sentences.? HEART: Regular rate and rhythm. No murmur heard. ? ABDOMEN: Soft, nontender, nondistended EXTREMITIES: Normal range of motion. No edema. ? SKIN: Warm, dry, no rash.? NEURO: Alert and
== END 2022-11-06 09:28 | disposition home or self-care (01) ==
PROVIDERS: Emergency Provider Nurse Practitioner Family; PCP Physician Assistant
DX: J03.90 Acute tonsillitis, unspecified (principal); F41.9 Anxiety disorder, unspecified; F32.A Depression, unspecified; Z20.822 Contact with and (suspected) exposure to COVID-19
CPT/HCPCS: 87081; 87147; 87426; 87804; 87880; 99213; C9803; G0463

== ENCOUNTER 2022-11-20 13:32 | Emergency (ER) | payer BC, SELFPAY ==
[2022-11-20] VITALS (7 sets, daily range): BP systolic 107–141; BP diastolic 75–99; PULSE 68–95; RESP 16–20; TEMP 36.7; O2SAT 98–100
[2022-11-20] MEDS: SODIUM CHLORIDE 0.9% IV 1,000 ML 999 ML IV CONT (14:47)
[2022-11-20] MEDS: ONDANSETRON INJ 4 MG/2 ML VIAL IV PUSH (14:47)
[2022-11-20] MEDS: MECLIZINE HCL 25 MG TABLET PO (14:47)
[2022-11-20 14:58] LABS: Basophils Percent Auto 0.2 % (0.2-1.2); Eosinophils Percent Auto 0.1 % (0-4.4); Hemoglobin 14.2 g/dL (12.0-15.0); Immature Granulocyte Absolute 0.02 K/mm3 (0.00-0.031); Immature Granulocyte Percent A 0.2 % (0-0.5); Lymphocytes Absolute Auto 0.96 K/mm3 (0.9-3.2); Lymphocytes Percent Auto 11.8 % (18.3-44.2); Mean Corpuscular HGB Conc 34.6 g/dl (32-36); Mean Corpuscular Hemoglobin 31.3 pg (26-34); Mean Corpuscular Volume 90.5 fl (80-100); Mean Platelet Volume 9.5 fl (7.4-10.4); Monocytes Absolute Auto 0.1 K/mm3 (0.1-0.6); Monocytes Percent Auto 1.5 % (2.6-8.5); Neutrophils Percent Auto 86.2 % (45.5-73.1); Platelet Count Result 194 k/mm3 (150-375); Red Blood Count 4.53 M/mm3 (4.2-5.4); Red Cell Distribution Width 12.2 % (11.5-14.5); White Blood Count 8.1 K/mm3 (4.5-10.0)
[2022-11-20 15:30] LABS: Anion Gap 5 mmol/L (8-16); Blood Urea Nitrogen 12 mg/dL (7-17); Calcium 8.9 mg/dL (8.4-10.2); Carbon Dioxide 24 mmol/L (22-30); Chloride 104 mmol/L (98-107); Estimated CRCL calculation 189 ml/min; Estimated Glomerular Filt Rate > 60; Glucose 114 mg/dL (65-110); Potassium 4.3 mmol/L (3.4-5.0); Sodium 133 mmol/L (137-145)
--- NOTE | 2022-11-20 16:28 | ED.GENADULT ---
HPI - General Adult General Chief complaint: Weakness Stated complaint: shaky, lightheaded Time Seen by Provider: 11/20/22 14:11 History of Present Illness HPI narrative: Patient is a 22-year-old female who presents ER with dizziness. Ongoing today. Worse with positional change and head. Makes her feel nauseous. No numbness or weakness in arm or leg. No chest pain or chest pressure. Patient is concerned about possible blood sugar as she has been treated for prediabetes. Related Data Home Medications Medication Instructions Recorded Confirmed buspirone 10 mg tablet 10 mg PO TID 10/16/21 11/06/22 sertraline 100 mg tablet 200 mg PO DAILY 10/16/21 11/06/22 clonidine HCl 0.1 mg tablet 0.1 mg PO DAILY 10/18/21 11/06/22 albuterol sulfate 2.5 mg/3 mL See Rx Instructions .Route 05/20/22 11/06/22 (0.083 %) solution for nebulization .COMPLEX PRN sob albuterol sulfate 90 mcg/actuation See Rx Instructions .Route 05/20/22 11/06/22 aerosol inhaler .COMPLEX PRN sob Allergies Allergy/AdvReac Type Severity Reaction Status Date / Time ac Allergy Intermediate Hives Verified 11/20/22 14:35 coconut Allergy Unknown Anaphylaxis Verified 11/20/22 14:35 latex Allergy Unknown Rash Verified 11/20/22 14:35 Review of Systems Review of Systems: All systems reviewed & are unremarkable except as noted in HPI and below Constitutional: Constitutional: Denies chills, Denies fatigue and Denies fever(s) ENT: Reports dizziness, Denies nasal congestion and Denies sore throat Cardiovascular: Cardiovascular: Denies chest pain, Denies radiating jaw, neck or arm pain and Denies slow heart rate Respiratory: Respiratory: Denies cough and Denies dyspnea Gastrointestinal: Gastrointestinal: Denies abdominal pain, Reports nausea and Denies vomiting PMFSH Past Medical History Medical History ADHD (attention deficit hyperactivity disorder) Anxiety and depression Asthma Vocal cord dysfunction Surgical History Surgical History No significant past surgical history Family History Family History Mother Hypertension Grandparent Hypertension Social History Social History Smoking status: Never smoker Second hand tobacco smoke exposure: Yes Alcohol intake: current Substance use: never Living arrangements: with family Occupation/Education: student Gender identity (if verbalized by the patient): Female Spiritual care concerns: No Exam Narrative: GENERAL: Well-appearing, well-nourished, and in no acute distress. HEAD: Normocephalic, atraumatic. EYES: PERRL and EOMI. right gaze nystagmus. ENT: Mucous membranes moist. TMs normal bilaterally. CHEST: Clear to auscultation. No respiratory distress. HEART: Regular rate and rhythm. Normal peripheral pulses. ABDOMEN: Soft, nontender, nondistended. EXTREMITIES: Normal range of motion. No edema. NEURO: Alert and oriented x3. PSYCH: Normal mood and affect. Course Course Emergency Course: Patient resting comfortably. Hydrated and given meclizine. Dizziness improved. Patient felt to have peripheral vertigo-recommend meclizine outpatient. Vital Signs Vital signs: Vital Signs Temperature 98.1 F 11/20/22 13:59 Pulse Rate 87 11/20/22 13:59 Respiratory Rate 16 11/20/22 13:59 Blood Pressure 134/81 11/20/22 13:59 Pulse Oximetry 99 11/20/22 13:59 Oxygen Delivery Room Air 11/20/22 13:59 Temperature 98.1 F 11/20/22 13:59 Pulse Rate 68 11/20/22 16:09 Respiratory Rate 20 11/20/22 16:09 Blood Pressure 107/89 11/20/22 16:09 Pulse Oximetry 98 11/20/22 16:09 Oxygen Delivery Room Air 11/20/22 13:59 Medical Decision Making Vital Signs Vital Signs: Vital Signs Temperature 98.1 F 11/20/22 13:59 Pulse Rate
== END 2022-11-20 16:38 | disposition home or self-care (01) ==
PROVIDERS: Emergency Provider Emergency Medicine; PCP Physician Assistant
DX: R42 Dizziness and giddiness (principal); J45.909 Unspecified asthma, uncomplicated; F90.9 Attention-deficit hyperactivity disorder, unspecified type; F41.9 Anxiety disorder, unspecified; F32.A Depression, unspecified
CPT/HCPCS: 36415; 80048; 85025; 96361; 96374; 99284; A9270; J2405; J7030

== ENCOUNTER 2023-01-14 08:02 | Emergency (ER) | payer BC, SELFPAY ==
--- NOTE | 2023-01-14 08:05 | ED.LOWEXIN ---
HPI - Extremity Injury (Lower) General Chief Complaint: Extremity Injury, Lower Stated Complaint: Pain in right ankle Time Seen by Provider: 01/14/23 08:04 Source: patient Mode of arrival: ambulatory Limitations: no limitations History of Present Illness HPI Narrative: Bernadine is a 22-year-old female patient presenting to the clinic today with complaints of pain in her right ankle x 1 day. She reports she got her ankle caught in the back of the couch yesterday. Is having pain to the lateral ankle. Bruising and swelling noted. Is having pain with walking and is unable to bear full weight. Related Data Home Medications Medication Instructions Recorded Confirmed buspirone 10 mg tablet 10 mg PO TID 10/16/21 01/14/23 sertraline 100 mg tablet 200 mg PO DAILY 10/16/21 01/14/23 clonidine HCl 0.1 mg tablet 0.1 mg PO DAILY 10/18/21 01/14/23 albuterol sulfate 2.5 mg/3 mL See Rx Instructions .Route 05/20/22 01/14/23 (0.083 %) solution for nebulization .COMPLEX PRN sob albuterol sulfate 90 mcg/actuation See Rx Instructions .Route 05/20/22 01/14/23 aerosol inhaler .COMPLEX PRN sob Allergies Allergy/AdvReac Type Severity Reaction Status Date / Time ac Allergy Intermediate Hives Verified 01/14/23 08:25 coconut Allergy Unknown Anaphylaxis Verified 01/14/23 08:25 latex Allergy Unknown Rash Verified 01/14/23 08:25 Review of Systems Review of Systems: Pertinent positives per HPI. Patient denies any fever, chills, rash, headache, visual changes, dizziness, cough, runny nose, sore throat, shortness of breath, chest pain, palpitations, nausea, vomiting, diarrhea, constipation, abdominal pain, or any urinary issues. [facility] Past Medical History Medical History ADHD (attention deficit hyperactivity disorder) Anxiety and depression Asthma Vocal cord dysfunction Surgical History Surgical History No significant past surgical history Family History Family History Mother Hypertension Grandparent Hypertension Social History Social History Smoking status: Never smoker Second hand tobacco smoke exposure: Yes Alcohol intake: current Substance use: never Living arrangements: with family Occupation/Education: student Gender identity (if verbalized by the patient): Female Spiritual care concerns: No Comments At the time of my signature, I reviewed and agree with the nursing past medical, surgical, social, and family history. There is no relevant family history pertinent to the patient complaint. Exam Narrative: General: Well-developed, overweight, in no apparent distress Head: Normocephalic, atraumatic. Cardio: Regular rate and rhythm, s1 and s2 normal, no murmur appreciated. Resp: Clear to auscultation bilaterally, no rhonchi, rales, wheezing or rubs. Musculoskeletal: No deformity, swelling and bruising noted over the right lateral ankle, tenderness to palpation over the lateral malleolus, pain with plantar flexion and dorsal flexion against resistance, unable to to circular range of motion due to discomfort, muscle strength strong and equal, peripheral pulse strong,no cyanosis, normal gait and station Course Course Emergency Course: Portions of this record may have been created with voice recognition software. Level of Care: Express Care Visit Vital Signs Vital signs: Vital signs reviewed MDM - Extremity Injury (Lower) MDM Narrative Medical decision making narrative: At the time of visit patient is resting comfortably on exam table. Right ankle x-ray was performed in the clinic today and was negative for any fracture or malalignment. Supportive measures were discussed with the patient she voiced understanding of discharge instructions and
[2023-01-14 08:15] VITALS: BP 118/70; PULSE 79; RESP 12; TEMP 36.8; O2SAT 100
== END 2023-01-14 08:43 | disposition home or self-care (01) ==
PROVIDERS: Emergency Provider Nurse Practitioner Family; PCP Physician Assistant
DX: S93.411A Sprain of calcaneofibular ligament of right ankle, initial encounter (principal); X58.XXXA Exposure to other specified factors, initial encounter; J45.909 Unspecified asthma, uncomplicated; F41.9 Anxiety disorder, unspecified; F32.A Depression, unspecified
CPT/HCPCS: 73610; 99213; G0463

== ENCOUNTER 2023-05-16 15:57 | Emergency (ER) | payer BC, SELFPAY ==
--- NOTE | ~2023-05-16 | XR_ITS ---
EXAM: XR abdomen/kub 1V DATE: 05/16/2023 16:32 HISTORY: mid abdomen pain, nausea/vomiting . COMPARISON: 06/28/2020. FINDINGS: Clear lung bases. Normal bowel gas pattern. No organomegaly. No abnormal abdominal calcifi cation. Regional bones and soft tissues normal for age. IMPRESSION: No radiographic evidence of obstruction or ileus. Reviewed, dictated and finalized at location K.
--- NOTE | 2023-05-16 15:59 | ED.NAVMDI ---
HPI - Nausea/Vomiting/Diarrhea General Chief complaint: Nausea/Vomiting/Diarrhea Stated complaint: Nausea,Vomiting Time Seen by Provider: 05/16/23 15:58 Source: patient Mode of arrival: ambulatory Limitations: no limitations History of Present Illness HPI Narrative: Nancy is a 22-year-old female patient presenting to the clinic today with complaints of nausea and vomiting x1 week. She reports no URI symptoms, fever, chills, body aches, diarrhea. Last bowel movement was this morning and was normal for the patient. States that she is not have any urinary symptoms. When asked about she said she could be . Last menstrual period was April 21, 2023 and she is sexually active. Received Rx for zofran and omprazole earlier this week and has not helped. Last time she vomited was this morning. Related Data Home Medications Medication Instructions Recorded Confirmed buspirone 10 mg tablet 10 mg PO TID 10/16/21 05/16/23 sertraline 100 mg tablet 200 mg PO DAILY 10/16/21 05/16/23 clonidine HCl 0.1 mg tablet 0.1 mg PO DAILY 10/18/21 05/16/23 albuterol sulfate 2.5 mg/3 mL See Rx Instructions .Route 05/20/22 05/16/23 (0.083 %) solution for nebulization .COMPLEX PRN sob albuterol sulfate 90 mcg/actuation See Rx Instructions .Route 05/20/22 05/16/23 aerosol inhaler .COMPLEX PRN sob Allergies Allergy/AdvReac Type Severity Reaction Status Date / Time coconut Allergy Severe Anaphylaxis Verified 05/16/23 16:16 latex Allergy Intermediate Rash Verified 05/16/23 16:16 ac Allergy Intermediate Hives Verified 05/16/23 16:16 Review of Systems Review of Systems: Pertinent positives per HPI. Patient denies any fever, chills, rash, headache, visual changes, dizziness, cough, runny nose, sore throat, shortness of breath, chest pain, palpitations, diarrhea, constipation, abdominal pain, or any urinary issues. [facility] Past Medical History Medical History ADHD (attention deficit hyperactivity disorder) Anxiety and depression Asthma Vocal cord dysfunction Surgical History Surgical History No significant past surgical history Family History Family History Mother Hypertension Grandparent Hypertension Social History Social History Smoking status: Never smoker Second hand tobacco smoke exposure: Yes Alcohol intake: current Substance use: never Living arrangements: with family Occupation/Education: student Gender identity (if verbalized by the patient): Female Spiritual care concerns: No Comments At the time of my signature, I reviewed and agree with the nursing past medical, surgical, social, and family history. There is no relevant family history pertinent to the patient complaint. Exam Narrative: General: Well-developed, well nourished, in no apparent distress Head: Normocephalic, atraumatic Eyes: Pupils equally round and reactive to light bilaterally, EOM intact, sclera and conjunctive clear, no discharge, lids normal Ears: TMs intact and clear, ear canals clear, no drainage, grossly hearing normal. Nose: Nares patent, no discharge, no inflammation, no sinus tenderness. Mouth: Oropharynx without lesions or masses, good dentition, MMM. Neck: Supple, trachea midline, no enlargement of anterior or posterior cervical nodes, no thyroid masses or goiter palpable. Cardio: Regular rate and rhythm, s1 and s2 normal, no murmur appreciated. Resp: Clear to auscultation bilaterally anteriorly and posteriorly, no rhonchi, rales, wheezing or rubs. Abdomen: Soft, pliable, bowel sounds present in all quadrants, mild mid abdomen tender to palpation, no organomegly, no CVAT tenderness. Course Course Emergency Course: Portions of this record may have been c
[2023-05-16 16:08] VITALS: BP 131/89; PULSE 85; RESP 16; TEMP 37.3; O2SAT 99
== END 2023-05-16 17:08 | disposition home or self-care (01) ==
PROVIDERS: Emergency Provider Nurse Practitioner Family
DX: K29.00 Acute gastritis without bleeding (principal); F41.8 Other specified anxiety disorders; J45.909 Unspecified asthma, uncomplicated
CPT/HCPCS: 74018; 81003; 81025; 99213; G0463

== ENCOUNTER 2023-09-25 10:30 | Emergency (ER) | payer OTHER, SELFPAY ==
--- NOTE | ~2023-09-25 | XR_ITS ---
EXAMINATION: XR chest 2V DATE: 09/25/2023 11:09 INDICATION: Cough. Bilateral anterior rib pain. TECHNIQUE: Frontal and lateral views of the chest were obtained. COMPARISON: Chest single view 09/19/2021 FINDINGS: There is no pneumonia, pleural effusion, or pneumothorax. The heart size is normal. IMPRESSION: 1. No acute cardiopulmonary disease. Reviewed, dictated and finalized at location E. [employer]
[2023-09-25 10:42] VITALS: BP 146/78; PULSE 94; RESP 16; TEMP 37.5; O2SAT 99
--- NOTE | 2023-09-25 10:44 | ED.URI ---
HPI - URI/Sore Throat General Chief Complaint: Asthma Stated Complaint: SOB/Cough Time Seen by Provider: 09/25/23 10:50 Source: patient and RN notes reviewed Mode of arrival: ambulatory Limitations: no limitations History of Present Illness HPI Narrative: 23-year-old female with history of asthma presents with concern for exacerbation. She reports increased coughing, productive cough, nasal drainage in congestion. She reports bilateral rib discomfort, soreness with coughing. She reports she has been using her nebulizer more frequently than usual. She last used it last night MD elicited complaint: cough and rhinorrhea Related Data Home Medications Medication Instructions Recorded Confirmed sertraline 100 mg tablet 200 mg PO DAILY 10/16/21 09/25/23 clonidine HCl 0.1 mg tablet 0.1 mg PO DAILY 10/18/21 09/25/23 albuterol sulfate 2.5 mg/3 mL See Rx Instructions .Route 05/20/22 09/25/23 (0.083 %) solution for nebulization .COMPLEX PRN sob albuterol sulfate 90 mcg/actuation See Rx Instructions .Route 05/20/22 09/25/23 aerosol inhaler .COMPLEX PRN sob lamotrigine 100 mg tablet 100 mg PO DAILY 09/25/23 09/25/23 Allergies Allergy/AdvReac Type Severity Reaction Status Date / Time coconut Allergy Severe Anaphylaxis Verified 05/16/23 16:16 latex Allergy Intermediate Rash Verified 05/16/23 16:16 ac Allergy Intermediate Hives Verified 05/16/23 16:16 Review of Systems Review of Systems: CONSTITUTIONAL: Denies malaise, chills, sweats, or fever. EYES: Denies visual changes, redness, or discharge. ENT: Reports rhinorrhea, congestion. Denies sinus pain, otalgia and sore throat. CARDIOVASCULAR: Denies chest pain, palpitations, or edema. RESPIRATORY: Reports cough, wheezing. Denies dyspnea. GASTROINTESTINAL: Denies abdominal pain, nausea, vomiting, diarrhea SKIN: Denies rash or itching. MUSCULOSKELETAL: Denies myalgia. Reports chest soreness with coughing bilaterally NEUROLOGIC: Denies headache. All systems reviewed & are unremarkable except as noted in HPI and below PMFSH Past Medical History Medical History ADHD (attention deficit hyperactivity disorder) Anxiety and depression Asthma Vocal cord dysfunction Surgical History Surgical History No significant past surgical history Family History Family History Mother Hypertension Grandparent Hypertension Social History Social History Smoking status: Never smoker Second hand tobacco smoke exposure: Yes Alcohol intake: current Substance use: never Living arrangements: with family Occupation/Education: student Gender identity (if verbalized by the patient): Female Spiritual care concerns: No Comments At time of signature, agree with nursing past medical, surgical, social and family history. There is no relevant family history pertinent to the presenting complaint Exam Narrative: GENERAL: Well-appearing, well-nourished, and in no acute distress. HEAD: Normocephalic EYES: PERRLA, conjunctivae clear ENT: Nares clear, clear discharge. Mucous membranes moist. TM pearly mann with sharp light reflex bilaterally; no tragal tenderness. Oropharynx not erythematous without lesions. Tonsils not enlarged and without exudate, no drooling, no hoarseness, no trismus, uvula midline. NECK: Supple. No lymphadenopathy CHEST: Clear to auscultation, breath sounds equal. No wheezing, rhonchi, rales, or stridor. No respiratory distress, speaks in full sentences. HEART: Regular rate and rhythm. No murmur heard. SKIN: Warm, dry, no rash. NEURO: Alert and oriented x3. PSYCH: Normal mood and affect Course Course Emergency Course: Patient is aware of diagnosis, understands and agrees to treatment plan. Anticipatory guidance
== END 2023-09-25 11:30 | disposition home or self-care (01) ==
PROVIDERS: Emergency Provider Nurse Practitioner; PCP Physician Assistant
DX: J45.901 Unspecified asthma with (acute) exacerbation (principal); Z20.822 Contact with and (suspected) exposure to COVID-19; F41.9 Anxiety disorder, unspecified; F32.A Depression, unspecified
CPT/HCPCS: 71046; 87426; 87804; 99213; G0463

== ENCOUNTER 2024-03-23 14:21 | Emergency (ER) | payer OTHER, SELFPAY ==
[2024-03-23] VITALS (7 sets, daily range): BP systolic 112–128; BP diastolic 62–81; PULSE 76–98; RESP 16–20; O2SAT 98–100
--- NOTE | 2024-03-23 14:38 | ED.GENADULT ---
HPI - General Adult General Chief complaint: Allergic Reaction Stated complaint: allergic reaction Time Seen by Provider: 03/23/24 14:27 History of Present Illness HPI narrative: This is a 23-year-old female with multiple allergies presenting with possible allergic reaction. She was at a pool when she has pain herself sunscreen. She then jumped into the swimming pool and became very itchy. When she got out of the pool she was administered epinephrine pen by the [employer] on duty. She is now complaining of anxiety. She does not have any nausea vomiting diarrhea, chest pain difficulty breathing or skin findings. Related Data Home Medications Medication Instructions Recorded Confirmed sertraline 100 mg tablet 200 mg PO DAILY 10/16/21 09/25/23 clonidine HCl 0.1 mg tablet 0.1 mg PO DAILY 10/18/21 09/25/23 albuterol sulfate 2.5 mg/3 mL See Rx Instructions .Route 05/20/22 09/25/23 (0.083 %) solution for nebulization .COMPLEX PRN sob albuterol sulfate 90 mcg/actuation See Rx Instructions .Route 05/20/22 09/25/23 aerosol inhaler .COMPLEX PRN sob lamotrigine 100 mg tablet 100 mg PO DAILY 09/25/23 09/25/23 Allergies Allergy/AdvReac Type Severity Reaction Status Date / Time coconut Allergy Severe Anaphylaxis Verified 03/23/24 14:31 latex Allergy Intermediate Rash Verified 03/23/24 14:31 ac Allergy Intermediate Hives Verified 03/23/24 14:31 bee venom protein (honey bee) Allergy Anaphylaxis Verified 03/23/24 14:31 [bees] PMFSH Past Medical History Medical History ADHD (attention deficit hyperactivity disorder) Anxiety and depression Asthma Vocal cord dysfunction Surgical History Surgical History No significant past surgical history Family History Family History Mother Hypertension Grandparent Hypertension Social History Social History Smoking status: Never smoker Second hand tobacco smoke exposure: Yes Alcohol intake: current Substance use: never Living arrangements: with family Occupation/Education: student Gender identity (if verbalized by the patient): Female Spiritual care concerns: No Exam Narrative: APPEARANCE: No apparent distress. Anxious. Head: atraumatic. EYES: EOMI, NOSE: Atraumatic NECK: Trachea midline RESPIRATORY: No increased rate of breathing clear auscultation CARDIOVASCULAR: RRR, no peripheral edema ABDOMINAL: Non-distended soft nontender MUSCULOSKELETAl: No obvious deformities NEURO: Alert. Moving 4/4 extremities SKIN:: Warm, dry. Normal color PSYCHIATRIC: Normal affect Course Vital Signs Vital signs: Vital Signs Pulse Rate 95 03/23/24 14:24 Respiratory Rate 20 03/23/24 14:24 Blood Pressure 128/76 03/23/24 14:24 Pulse Oximetry 100 03/23/24 14:24 Oxygen Delivery Room Air 03/23/24 14:24 Pulse Rate 86 03/23/24 17:01 Respiratory Rate 20 03/23/24 17:01 Blood Pressure 120/73 03/23/24 17:01 Pulse Oximetry 99 03/23/24 17:01 Oxygen Delivery Room Air 03/23/24 14:30 Medical Decision Making MDM Narrative Medical decision making narrative: -Course: 23-year-old female presenting with reaction. Patient given dexamethasone Benadryl and steroids. She was monitored for 4 hours without recurrence of her symptoms. Patient discharged with PCP follow-up. -DDX includes but is not limited to: Allergic reaction, anaphylaxis, anxiety -Co-morbidities complicating care: Anxiety -Interventions: Dexamethasone, Benadryl, Pepcid -Shared decision making / Disposition: Discharged -RX EpiPen Vital Signs Vital Signs: Vital Signs Pulse Rate 95 03/23/24 14:24 Respiratory Rate 20 03/23/24 14:24 Blood Pressure 128/76 03/23/24 14:24 Pulse Oximetry 100 03/23/24 14:24 Oxygen Delivery Room
[2024-03-23] MEDS: diphenhydrAMINE HCl INJ 50 MG/ML VIAL IV PUSH (14:41)
[2024-03-23] MEDS: dexAMETHasone SOD PHOS INJ 10 MG/ML 1 ML VIAL IV PUSH (14:41)
[2024-03-23] MEDS: FAMOTIDINE 20 MG/2 ML VIAL 40 MG IV PUSH (14:41)
== END 2024-03-23 18:12 | disposition home or self-care (01) ==
LOC: ANHED 14:54
PROVIDERS: Emergency Provider Emergency Medicine; PCP Physician Assistant
DX: T78.40XA Allergy, unspecified, initial encounter (principal); J45.909 Unspecified asthma, uncomplicated; F41.9 Anxiety disorder, unspecified; F32.A Depression, unspecified; F90.9 Attention-deficit hyperactivity disorder, unspecified type; Z79.899 Other long term (current) drug therapy; X58.XXXA Exposure to other specified factors, initial encounter
CPT/HCPCS: 96374; 96375; 99284; J1100; J1200

== ENCOUNTER 2024-06-21 12:11 | Emergency (ER) | payer OTHER, SELFPAY ==
--- NOTE | ~2024-06-21 | CT_ITS ---
CT of the Abdomen and Pelvis: Indication: Abdominal pain Technique: 2.5 mm axial scans were obtained through the abdomen and pelvis following intravenous adm inistration of 100 cc of Omnipaque 350. Dose reduction technique was used on this scan by utilizing a utomated exposure control and iterative reconstruction technique. The dose-length product (DLP) was 1 598.05 mGy-cm. COMPARISON: 02/11/2022, 11/04/2021 Findings: Scans through the lung bases are unremarkable. There is a 12 mm hypodense lesion in the inferior right hepatic lobe, stable from prior exam. The spl een, pancreas, adrenals and kidneys are within normal limits. Gallbladder absent. No evidence of aort ic aneurysm. No lymphadenopathy. No bowel obstruction or bowel wall thickening. There is no evidence to suggest acute appendicitis. Images through the pelvis were performed. Urinary bladder unremarkable. No pelvic mass seen. No ascit es. Impression: No acute abnormality. Stable 12 mm hypodense hepatic lesion since 2021, therefore most likely benign, possibly small tari ioma. Reviewed, dictated and finalized at location . Impression: No acute abnormality. Stable 12 mm hypodense hepatic lesion since 2021, therefore most likely benign, possibly small hemangioma.
[2024-06-21 12:18] VITALS: BP 124/81; PULSE 89; RESP 16; TEMP 36.4; O2SAT 100
[2024-06-21 12:25] VITALS: BP 113/45; PULSE 80; RESP 18; O2SAT 99
[2024-06-21 13:29] LABS: Basophils Percent Auto 0.6 % (0.2-1.2); Eosinophils Absolute Auto 0.4 K/mm3 (0-0.3); Eosinophils Percent Auto 6.3 % (0-4.4); Hematocrit 38.9 % (37.0-47.0); Hemoglobin 13.5 g/dL (12.0-15.0); Immature Granulocyte Absolute 0.01 K/mm3 (0.00-0.031); Immature Granulocyte Percent A 0.2 % (0-0.5); Lymphocytes Percent Auto 23.6 % (18.3-44.2); Mean Corpuscular HGB Conc 34.7 g/dl (32-36); Mean Corpuscular Hemoglobin 31.7 pg (26-34); Mean Corpuscular Volume 91.3 fl (80-100); Mean Platelet Volume 9.2 fl (7.4-10.4); Monocytes Absolute Auto 0.5 K/mm3 (0.1-0.6); Neutrophils Absolute Auto 3.9 K/mm3 (1.3-6.7); Neutrophils Percent Auto 61.3 % (45.5-73.1); Platelet Count Result 229 k/mm3 (150-375); Red Blood Count 4.26 M/mm3 (4.2-5.4); Red Cell Distribution Width 12.3 % (11.5-14.5); White Blood Count 6.4 K/mm3 (4.5-10.0)
[2024-06-21 13:31] LABS: Add Urine Microscopic? YES; Appearance Urine Clear (Clear); Bacteria Urine 1+ /hpf; Bilirubin Urine Negative (Negative); Blood Urine Negative (Negative); Color Urine Yellow (Yellow); Glucose Urine UA Negative (Negative); Ketones Urine Negative (Negative); Leukocyte Esterase Ur Trace LEU/UL (Negative); Nitrate Urine Negative (Negative); Non Pathogenic Casts 0-2; Protein Urine Negative (Negative); RBC Urine 0-2 /hpf (0-2); Specific Grav Ur 1.024 (1.001-1.035); Squamous Epithelial Cell Urine Moderate /hpf (Few); WBC Urine 0-5 /hpf (0-3); pH Urine 7.5 (5.0-9.0)
[2024-06-21 13:41] LABS: Alanine Aminotransferase 18 U/L (6-35); Albumin Level 3.9 g/dL (3.5-5.1); Alkaline Phosphatase 50 U/L (38-126); Anion Gap 7 mmol/L (4-12); Aspartate Amino Transferase 22 U/L (14-36); Bilirubin,Total 0.9 mg/dL (0.2-1.3); Blood Urea Nitrogen 12 mg/dL (7-17); Calcium 9.1 mg/dL (8.4-10.2); Carbon Dioxide 26 mmol/L (22-30); Chloride 106 mmol/L (98-107); Estimated CRCL calculation 135 ml/min; Estimated Glomerular Filt Rate > 60; Glucose 84 mg/dL (65-110); Lipase 65 U/L (23-300); Potassium 3.9 mmol/L (3.4-5.0); Sodium 139 mmol/L (137-145)
[2024-06-21 14:11] LABS: BEDSIDEPREGUCG Negative (Negative)
[2024-06-21 14:33] VITALS: BP 111/62; PULSE 80; RESP 20; O2SAT 100
--- NOTE | 2024-06-21 15:20 | ED.ABDPAIN ---
HPI - Abdominal Pain General Chief Complaint: Abdominal Pain Stated Complaint: L FLANK PAIN Time Seen by Provider: 06/21/24 12:23 Source: patient Mode of arrival: ambulatory Limitations: no limitations History of Present Illness HPI narrative: 24-year-old with a history of bipolar disorder here with the complaints of left upper quadrant pain for past 4 days. Patient denies any nausea or vomiting. Patient states that she has diarrhea at times. Denies any blood in the stool. No recent use of any antibiotics. MD elicited complaint: abdominal pain Pertinent past history: none Onset (ago): day(s) (4) Location: LUQ Quality: aching Radiation: LUQ Migration to: no migration Exacerbating factors: nothing Associated symptoms: denies other symptoms Related Data Home Medications Medication Instructions Recorded Confirmed sertraline 100 mg tablet 200 mg PO DAILY 10/16/21 09/25/23 clonidine HCl 0.1 mg tablet 0.1 mg PO DAILY 10/18/21 09/25/23 albuterol sulfate 2.5 mg/3 mL See Rx Instructions .Route 05/20/22 09/25/23 (0.083 %) solution for nebulization .COMPLEX PRN sob albuterol sulfate 90 mcg/actuation See Rx Instructions .Route 05/20/22 09/25/23 aerosol inhaler .COMPLEX PRN sob lamotrigine 100 mg tablet 100 mg PO DAILY 09/25/23 09/25/23 Allergies Allergy/AdvReac Type Severity Reaction Status Date / Time coconut Allergy Severe Anaphylaxis Verified 06/21/24 12:22 latex Allergy Intermediate Rash Verified 06/21/24 12:22 ac Allergy Intermediate Hives Verified 06/21/24 12:22 bee venom protein (honey bee) Allergy Anaphylaxis Verified 06/21/24 12:22 [bees] Review of Systems Review of Systems: All systems reviewed & are unremarkable except as noted in HPI and below Constitutional: Constitutional: Reports no additional constitutional complaints Eyes: Eyes: Reports no additional eye complaints ENT: Reports system reviewed and no additional complaints, except as documented Cardiovascular: Cardiovascular: Reports no additional cardiovascular complaints Respiratory: Respiratory: Reports no additional respiratory complaints Gastrointestinal: Gastrointestinal: Reports as per HPI Musculoskeletal: Musculoskeletal: Reports no additional musculoskeletal complaints Neurologic: Reports system reviewed and no additional complaints, except as documented [facility] Past Medical History Medical History ADHD (attention deficit hyperactivity disorder) Anxiety and depression Asthma Vocal cord dysfunction Surgical History Surgical History No significant past surgical history Family History Family History Mother Hypertension Grandparent Hypertension Social History Social History Smoking status: Never smoker Second hand tobacco smoke exposure: Yes Alcohol intake: current Substance use: never Living arrangements: with family Occupation/Education: student Gender identity (if verbalized by the patient): Female Spiritual care concerns: No Exam Narrative: GENERAL: Well-appearing, well-nourished, and in no acute distress. HEAD: Normocephalic, atraumatic. EYES: PERRLA and EOMI. ENT: Nares clear, no rhinorrhea or epistaxis. NECK: Supple. CHEST: Clear to auscultation. No respiratory distress. HEART: Regular rate and rhythm. No murmur heard. Normal peripheral pulses. ABDOMEN: Soft, nontender, nondistended, normal active bowel sounds. EXTREMITIES: Normal range of motion. No edema. SKIN: Warm, dry, no rash. NEURO: No focal deficits. Alert and oriented x3. PSYCH: Normal mood and affect. Course Course Emergency Course: Patient comfortably resting in no distress informed her about the lab work, CT findings. Cause of the pain is unknown. Vital Signs Vital signs: Vital Signs
[2024-06-21 15:36] VITALS: BP 107/81; PULSE 76; RESP 20; TEMP 36.8; O2SAT 100
== END 2024-06-21 15:38 | disposition home or self-care (01) ==
PROVIDERS: Emergency Provider Family Medicine; PCP Physician Assistant
DX: R10.12 Left upper quadrant pain (principal); F90.9 Attention-deficit hyperactivity disorder, unspecified type; F41.9 Anxiety disorder, unspecified; F32.A Depression, unspecified; J45.909 Unspecified asthma, uncomplicated
CPT/HCPCS: 36415; 74177; 80053; 81001; 81025; 83690; 85025; 99284; Q9967

== ENCOUNTER 2024-06-25 21:24 | Emergency (ER) | payer OTHER, SELFPAY ==
--- NOTE | ~2024-06-25 | XR_ITS ---
Portable chest x-ray Comparison: 09/25/2023 Clinical History: Shortness of breath Findings: Lungs are clear, without focal consolidation or pleural effusion. Cardiomediastinal silho uette is stable. Bones and soft tissues are unremarkable. Impression: Normal chest. Reviewed, dictated and finalized at location . Impression: Normal chest.
[2024-06-25 21:31] VITALS: BP 136/91; PULSE 94; RESP 12; TEMP 36.7; O2SAT 100; O2SAT 98
--- NOTE | 2024-06-25 21:40 | ED.GENADULT ---
HPI - General Adult General Chief complaint: Shortness of Breath/Dyspnea Stated complaint: asthma History of Present Illness HPI narrative: Patient is a 24-year-old female who presents emergency department this evening with shortness of breath. Patient admits that she does have a history of asthma and does use a rescue and inhaler and nebulizers, however, she states that she has enough nebulizer solution but could not find her nebulizer machine. EMS did administer a DuoNeb breathing treatment and 125 mg of IV Solu-Medrol. Patient does appear to be tachypneic but oxygenating well and does not appear to be in respiratory distress. She is currently denying any chest pain, nausea or vomiting, fevers or chills at home. Patient denies any previous admissions for her asthma and has never been intubated. No additional symptoms or concerns at this time. Related Data Home Medications Medication Instructions Recorded Confirmed sertraline 100 mg tablet 200 mg PO DAILY 10/16/21 09/25/23 clonidine HCl 0.1 mg tablet 0.1 mg PO DAILY 10/18/21 09/25/23 albuterol sulfate 2.5 mg/3 mL See Rx Instructions .Route 05/20/22 09/25/23 (0.083 %) solution for nebulization .COMPLEX PRN sob albuterol sulfate 90 mcg/actuation See Rx Instructions .Route 05/20/22 09/25/23 aerosol inhaler .COMPLEX PRN sob lamotrigine 100 mg tablet 100 mg PO DAILY 09/25/23 09/25/23 Allergies Allergy/AdvReac Type Severity Reaction Status Date / Time coconut Allergy Severe Anaphylaxis Verified 06/21/24 12:22 latex Allergy Intermediate Rash Verified 06/21/24 12:22 ac Allergy Intermediate Hives Verified 06/21/24 12:22 bee venom protein (honey bee) Allergy Anaphylaxis Verified 06/21/24 12:22 [bees] Review of Systems Review of Systems: All systems are reviewed and are negative unless stated otherwise in the HPI. [facility] Past Medical History Medical History ADHD (attention deficit hyperactivity disorder) Anxiety and depression Asthma Vocal cord dysfunction Surgical History Surgical History No significant past surgical history Family History Family History Mother Hypertension Grandparent Hypertension Social History Social History Smoking status: Never smoker Second hand tobacco smoke exposure: Yes Alcohol intake: current Substance use: never Living arrangements: with family Occupation/Education: student Gender identity (if verbalized by the patient): Female Spiritual care concerns: No Exam Narrative: General: Alert, awake, afebrile, in no acute distress. HEENT: PERRL, no rhinorrhea, no post nasal drip, oropharynx clear. Cardiovascular: Regular rate and rhythm, no murmurs, rubs or gallops, no peripheral edema. Respiratory: Faint expiratory wheezing, tachypnea, no rhonchi, no rubs, no respiratory distress. Abdomen: Soft, nontender, nondistended, no rebound, no guarding, no peritoneal signs. Musculoskeletal: No joint swelling or deformity, normal muscle tone. Skin: No rashes or petechia, no signs of infection. Neurological: Alert and oriented to person, place, and time. Follows all commands. No focal deficits, speech is clear and fluent. Course Vital Signs Vital signs: Vital Signs Temperature 98.0 F 06/25/24 21:31 Pulse Rate 94 06/25/24 21:31 Respiratory Rate 12 06/25/24 21:31 Blood Pressure 136/91 H 06/25/24 21:31 Pulse Oximetry 100 06/25/24 21:31 Oxygen Delivery Room Air 06/25/24 21:31 Temperature 98.0 F 06/25/24 21:31 Pulse Rate 96 06/25/24 22:56 Respiratory Rate 16 06/25/24 22:56 Blood Pressure 136/91 H 06/25/24 21:31 Pulse Oximetry 98 06/25/24 21:31 Oxygen Delivery Room Air 06/25/24 21:31 Medical Decision Making [facility] Narrative Medical de
[2024-06-25 21:47] VITALS: PULSE 83; RESP 35
[2024-06-25] MEDS: IPRATROPIUM BR 0.02% INH SOLN 0.5 MG/2.5 ML VIAL 2 MG INHALATION (21:48)
[2024-06-25] MEDS: ALBUTEROL SULFATE NEB 2.5 MG/3 ML INH 10 MG INHALATION (21:49)
[2024-06-25 22:10] LABS: Basophils Percent Auto 0.5 % (0.2-1.2); Eosinophils Absolute Auto 0.3 K/mm3 (0-0.3); Eosinophils Percent Auto 3.1 % (0-4.4); Hematocrit 37.6 % (37.0-47.0); Hemoglobin 13.6 g/dL (12.0-15.0); Immature Granulocyte Absolute 0.03 K/mm3 (0.00-0.031); Immature Granulocyte Percent A 0.4 % (0-0.5); Lymphocytes Absolute Auto 1.72 K/mm3 (0.9-3.2); Lymphocytes Percent Auto 21.1 % (18.3-44.2); Mean Corpuscular HGB Conc 36.2 g/dl (32-36); Mean Corpuscular Hemoglobin 31.8 pg (26-34); Mean Corpuscular Volume 87.9 fl (80-100); Mean Platelet Volume 9.1 fl (7.4-10.4); Monocytes Absolute Auto 0.5 K/mm3 (0.1-0.6); Monocytes Percent Auto 6.1 % (2.6-8.5); Neutrophils Absolute Auto 5.6 K/mm3 (1.3-6.7); Neutrophils Percent Auto 68.8 % (45.5-73.1); Platelet Count Result 266 k/mm3 (150-375); Red Blood Count 4.28 M/mm3 (4.2-5.4); Red Cell Distribution Width 12.1 % (11.5-14.5); White Blood Count 8.2 K/mm3 (4.5-10.0)
[2024-06-25 22:22] LABS: Alanine Aminotransferase 19 U/L (6-35); Albumin Level 4.2 g/dL (3.5-5.1); Alkaline Phosphatase 53 U/L (38-126); Anion Gap 11 mmol/L (4-12); Aspartate Amino Transferase 24 U/L (14-36); Bilirubin,Total 0.7 mg/dL (0.2-1.3); Blood Urea Nitrogen 12 mg/dL (7-17); Calcium 9.4 mg/dL (8.4-10.2); Carbon Dioxide 20 mmol/L (22-30); Chloride 107 mmol/L (98-107); Estimated Glomerular Filt Rate > 60; Glucose 101 mg/dL (65-110); Potassium 3.1 mmol/L (3.4-5.0); SPREG INTERNAL CONTROL Positive; Serum Qual hCG Negative; Sodium 138 mmol/L (137-145)
[2024-06-25 22:23] LABS: D Dimer < 0.27 ug/mL (<0.48)
[2024-06-25 22:51] LABS: Influenza A QL RT-PCR Negative (Negative); Influenza B QL RT-PCR Negative (Negative); SARS-CoV-2 RNA PCR Negative (Negative)
[2024-06-25 22:56] VITALS: PULSE 96; RESP 16
[2024-06-25 23:55] VITALS: BP 124/66; PULSE 86; RESP 15; O2SAT 100
== END 2024-06-25 23:56 | disposition home or self-care (01) ==
PROVIDERS: Emergency Provider Emergency Medicine; PCP Physician Assistant
DX: J45.901 Unspecified asthma with (acute) exacerbation (principal); Z20.822 Contact with and (suspected) exposure to COVID-19; F90.9 Attention-deficit hyperactivity disorder, unspecified type; F41.9 Anxiety disorder, unspecified; F32.A Depression, unspecified; Z79.899 Other long term (current) drug therapy
CPT/HCPCS: 36415; 71045; 80053; 84703; 85025; 85380; 87636; 94640; 99283

== ENCOUNTER 2024-07-08 20:41 | Emergency (ER) | payer OTHER, SELFPAY ==
[2024-07-08 20:48] VITALS: BP 111/69; PULSE 85; RESP 20; TEMP 36.7; O2SAT 100
--- NOTE | 2024-07-08 22:47 | PC.NURSE ---
[id number] NOT IN WAITING ROOM. NO ANSWER WHEN NAME CALLED FOR ROOM PLACEMENT.
== END 2024-07-08 23:45 | disposition left against medical advice (07) ==
PROVIDERS: PCP Physician Assistant
DX: J02.9 Acute pharyngitis, unspecified (principal)
CPT/HCPCS: 99199

== ENCOUNTER 2024-08-17 10:13 | Emergency (ER) | payer SELFPAY ==
[2024-08-17 10:23] VITALS: BP 144/80; PULSE 83; RESP 19; TEMP 36.4; O2SAT 99
--- NOTE | 2024-08-17 11:32 | ED.URI ---
HPI - URI/Sore Throat General Chief Complaint: Upper Respiratory Infection Stated Complaint: sore throat,cough,nauseated Time Seen by Provider: 08/17/24 11:30 Source: patient and RN notes reviewed Mode of arrival: ambulatory Limitations: no limitations History of Present Illness HPI Narrative: 24-year-old female presents concern for cough, sore throat, nausea. She denies fever. Reports aches. Reports exposure to strep and bronchitis. She has taken ibuprofen. MD elicited complaint: cough and sore throat Related Data Home Medications ?Medication ?Instructions ?Recorded ?Confirmed ?Last Taken ?Type albuterol sulfate 2.5 mg/3 mL See Rx Instructions .Route 05/20/22 08/17/24 Unknown History (0.083 %) solution for nebulization .COMPLEX PRN sob albuterol sulfate 90 mcg/actuation See Rx Instructions .Route 05/20/22 08/17/24 Unknown History aerosol inhaler .COMPLEX PRN sob lamotrigine 100 mg tablet 100 mg PO DAILY 09/25/23 09/25/23 Unknown History Allergies Allergy/AdvReac Type Severity Reaction Status Date / Time coconut Allergy Severe Anaphylaxis Verified 08/17/24 11:04 latex Allergy Intermediate Rash Verified 08/17/24 11:04 ac Allergy Intermediate Hives Verified 08/17/24 11:04 bee venom protein (honey Allergy Anaphylaxis Verified 08/17/24 11:04 bee) (bees) Review of Systems Review of Systems: CONSTITUTIONAL: Denies malaise, chills, sweats, or fever. EYES: Denies visual changes, redness, or discharge. ENT: Denies rhinorrhea, congestion, sinus pain, otalgia. Reports sore throat. CARDIOVASCULAR: Denies chest pain, palpitations, or edema. RESPIRATORY: Reports cough. Denies dyspnea. GASTROINTESTINAL: Denies abdominal pain, nausea, vomiting, diarrhea SKIN: Denies rash or itching. MUSCULOSKELETAL: Denies myalgia. NEUROLOGIC: Denies headache. All systems reviewed & are unremarkable except as noted in HPI and below PMFSH Past Medical History Medical History ADHD (attention deficit hyperactivity disorder) Anxiety and depression Asthma Vocal cord dysfunction Surgical History Surgical History No significant past surgical history Family History Family History Mother Hypertension Grandparent Hypertension Social History Social History Smoking status: Never smoker Second hand tobacco smoke exposure: Yes Alcohol intake: current Substance use: never Living arrangements: with family Occupation/Education: student Gender identity (if verbalized by the patient): Female Spiritual care concerns: No Comments At time of signature, agree with nursing past medical, surgical, social and family history. There is no relevant family history pertinent to the presenting complaint Exam Narrative: GENERAL: Well-appearing, well-nourished, and in no acute distress. HEAD: Normocephalic EYES: PERRLA, conjunctivae clear ENT: Nares clear. Mucous membranes moist. TM pearly mann with dull light reflex bilaterally; no tragal tenderness. Oropharynx not erythematous without lesions. Tonsils not enlarged and without exudate, no drooling, no hoarseness, no trismus, uvula midline. NECK: Supple. No lymphadenopathy CHEST: Very mild scattered wheeze, otherwise clear, breath sounds equal. No rhonchi, rales, or stridor. No respiratory distress, speaks in full sentences. HEART: Regular rate and rhythm. No murmur heard. SKIN: Warm, dry, no rash. NEURO: Alert and oriented x3. PSYCH: Normal mood and affect Course Course Emergency Course: Patient is aware of diagnosis, understands and agrees to treatment plan. Anticipatory guidance given. Patient agrees to follow-up as directed and is aware of reasons to seek care at the emergency department. Portions of this record may have been created with voice recognition software Level of Care: Express Care Visit Vital Signs Vital signs: Vital Signs Temperature 97.6 F 08/17/24 10:23 Pulse Rate 83 08/17/24 10:23 Respiratory Rate 19 08/17/24 10:23 Blood Pressure 144/80 H 08/17/24 10:23 Pulse Oximetry 99 08/17/24 10:23 Oxygen Delivery Room Air 08/17/24 10:23 Temperature 97.6 F 08/17/24 10:23 Pulse Rate 83 08/17/24 10:23 Respiratory Rate 19 08/17/24 10:23 Blood Pressure 144/80 H 08/17/24 10:23 Pulse Oximetry 99 08/17/24 10:23 Oxygen Delivery Room Air 08/17/24 10:23 Reviewed. MDM - URI/Sore Throat MDM Narrative Medical decision making narrative: Differential diagnosis considered: Gtz virus, strep pharyngitis, allergic rhinitis, upper respiratory tract infection, sinusitis, rhinosinusitis, nasopharyngitis. viral pharyngitis, otitis media, otitis externa, pneumonia, bronchitis, viral cough syndrome, viral syndrome, and influenza. Exam findings show no acute concerns or changes; patient is non-toxic appearing and is in no distress. Patient is appropriate for outpatient treatment and follow-up. Lab Data Attestation: I reviewed the patient's lab results. Critical Care Time Critical Care Time Critical Care Time: No Discharge Plan Discharge Clinical Impression: Bronchitis Patient Disposition: Home, Self-Care Condition: Stable Instructions: Acute Bronchitis (ED) Additional Instructions: Viral illness may last between 7-21 days; antibiotics do not cure viral illness and are NOT recommended at this time. Recommend antihistamine such as Benadryl at night time and Zyrtec or Sonja during the day Cough syrup may cause drowsiness; avoid driving or take it at night time. Also, recommend symptomatic treatment includes: rest, fluids, and increase humidity of the air at home. Recommend Acetaminophen as directed on the bottle to reduce fever, pain, headache. Avoid smoking/second-hand smoke. Please schedule a follow-up visit with your personal physician for further evaluation and treatment within 3-5days. If your symptoms persist, change or worsen significantly before you can contact your personal physician then please, without delay, go to the emergency department for further evaluation. Patient Language: Moldovan Prescriptions: New promethazine-DM 6.25-15 mg/5 mL syrup 5 ml PO Q4-6H PRN (Reason: cough) Qty: 120 0RF methylprednisolone [Medrol (Shaun)] 4 mg tablets,dose pack See Rx Instructions .ROUTE .COMPLEX Qty: 21 0RF Rx Instructions: orally per package directions No Action albuterol sulfate 2.5 mg /3 mL (0.083 %) solution for nebulization See Rx Instructions .ROUTE .COMPLEX PRN (Reason: sob) Rx Instructions: as prescribed albuterol sulfate 90 mcg/actuation HFA aerosol inhaler See Rx Instructions .ROUTE .COMPLEX PRN (Reason: sob) Rx Instructions: as prescribed lamotrigine 100 mg tablet 100 mg PO DAILY (DME) nebulizer and compressor [Home Nebulizer Plus Sidestream] Device See Rx Instructions .Route Qty: 1 0RF Rx Instructions: As directed epinephrine 0.3 mg/0.3 mL auto-injector 0.3 mg IM ONCE Qty: 2 0RF Rx Instructions: as a single dose; may repeat once Follow-up/Referrals: Leann,LIVIA Connolly [Primary Care Provider] - Time of Disposition: 11:40
[2024-08-17 11:40] LABS: EDSTREPNEGPOS1 Negative (Negative)
== END 2024-08-17 11:45 | disposition home or self-care (01) ==
PROVIDERS: Emergency Provider Nurse Practitioner; PCP Physician Assistant
DX: J40 Bronchitis, not specified as acute or chronic (principal); J45.909 Unspecified asthma, uncomplicated
CPT/HCPCS: 87081; 87880; 99213; G0463

== ENCOUNTER 2024-09-02 11:16 | Emergency (ER) | payer SELFPAY ==
[2024-09-02 11:32] VITALS: BP 127/76; PULSE 88; RESP 16; TEMP 36.4; O2SAT 99
--- NOTE | 2024-09-02 11:52 | ED.URI ---
HPI - URI/Sore Throat General Chief Complaint: Upper Respiratory Infection Stated Complaint: Sore Throat/Cough Time Seen by Provider: 09/02/24 11:52 Source: patient Mode of arrival: ambulatory Limitations: no limitations History of Present Illness HPI Narrative: Bernadine is a 24-year-old female patient presenting to the clinic today with complaints of sore throat and cough x3 weeks. She was seen on August 17 and diagnosed with bronchitis and given Medrol Dosepak and cough syrup. States her symptoms really have not improved. Has history of asthma but states that the laboratory aide has rule out asthma and does not feels though she truly has asthma. Denies any nasal congestion but does have sore throat and cough. Has been exposed to strep, bronchitis, and pneumonia. MD elicited complaint: cough, sore throat and nasal congestion Related Data Home Medications ?Medication ?Instructions ?Recorded ?Confirmed ?Last Taken ?Type albuterol sulfate 2.5 mg/3 mL See Rx Instructions .Route 05/20/22 09/02/24 Unknown History (0.083 %) solution for nebulization .COMPLEX PRN sob albuterol sulfate 90 mcg/actuation See Rx Instructions .Route 05/20/22 09/02/24 Unknown History aerosol inhaler .COMPLEX PRN sob lamotrigine 100 mg tablet 100 mg PO DAILY 09/25/23 09/02/24 Unknown History Allergies Allergy/AdvReac Type Severity Reaction Status Date / Time coconut Allergy Severe Anaphylaxis Verified 09/02/24 12:04 latex Allergy Intermediate Rash Verified 09/02/24 12:04 ac Allergy Intermediate Hives Verified 09/02/24 12:04 bee venom protein (honey Allergy Anaphylaxis Verified 09/02/24 12:04 bee) (bees) Review of Systems Review of Systems: Pertinent positives per HPI. Patient denies any fever, chills, rash, headache, visual changes, dizziness, cough, shortness of breath, chest pain, palpitations, nausea, vomiting, diarrhea, constipation, abdominal pain, or any urinary issues. PMFSH Past Medical History Medical History ADHD (attention deficit hyperactivity disorder) Anxiety and depression Asthma Vocal cord dysfunction Surgical History Surgical History No significant past surgical history Family History Family History Mother Hypertension Grandparent Hypertension Social History Social History Smoking status: Never smoker Second hand tobacco smoke exposure: Yes Alcohol intake: current Substance use: never Living arrangements: with family Occupation/Education: student Gender identity (if verbalized by the patient): Female Spiritual care concerns: No Comments At the time of my signature, I reviewed and agree with the nursing past medical, surgical, social, and family history. There is no relevant family history pertinent to the patient complaint. Exam Narrative: General: Well-developed, obese in no apparent distress Head: Normocephalic, atraumatic Eyes: Pupils equally round and reactive to light bilaterally, EOM intact, sclera and conjunctive clear, no discharge, lids normal Ears: TMs intact and clear, ear canals clear, no drainage, grossly hearing normal. Nose: Nares patent, clear nasal discharge, no inflammation, no sinus tenderness. Mouth: Oral pharynx without lesions or masses, good dentition, MMM. Postnasal drip Neck: Supple, trachea midline, no enlargement of anterior or posterior cervical nodes, no thyroid masses or goiter palpable. Cardio: Regular rate and rhythm, s1 and s2 normal, no murmur appreciated. Resp: Diminished in the bases, no rhonchi, rales, wheezing or rubs Course Course Emergency Course: Portions of this record may have been created with voice recognition software. Level of Care: Express Care Visit Vital Signs Vital signs: Vital Signs Temperature 36.4 C 09/02/24 11:32 Pulse Rate 88 09/02/24 11:32 Respiratory Rate 16 09/02/24 11:32 Blood Pressure 127/76 09/02/24 11:32 Pulse Oximetry 99 09/02/24 11:32 Oxygen Delivery Room Air 09/02/24 11:32 Temperature 36.4 C 09/02/24 11:32 Pulse Rate 88 09/02/24 11:32 Respiratory Rate 16 09/02/24 11:32 Blood Pressure 127/76 09/02/24 11:32 Pulse Oximetry 99 09/02/24 11:32 Oxygen Delivery Room Air 09/02/24 11:32 Vital signs reviewed MDM - URI/Sore Throat MDM Narrative Medical decision making narrative: At the time of visit patient is resting comfortably on the exam table. Patient appears to be nontoxic. Plan: Patient has a nonproductive cough with some shortness of breath and sore throat. Has had exposure to pneumonia, strep, and bronchitis. Her symptoms have been going on for approximately 3 weeks. Will treat for bronchitis and give prescription for azithromycin, prednisone, and she is to continue use of albuterol inhaler. Supportive measures were discussed with the patient and they voiced understanding discharge instructions and agrees to treatment plan. Return precautions reviewed Differential Diagnosis Differential diagnosis: Likely upper respiratory infection, otitis media, sinusitis, viral infection, bronchitis, influenza, pharyngitis and other (COVID) Discharge Plan Discharge Clinical Impression: Bronchitis Patient Disposition: Home, Self-Care Condition: Stable Instructions: Antibiotic Form, Acute Bronchitis (ED) Additional Instructions: Take prescription medications only as prescribed-prednisone and azithromycin Increase fluids and stay well hydrated Tylenol/motrin for pain/fever Flonase and OTC antihistamines as directed Vicks vapor rub to open sinuses Sinus rinses for congestion Cepacol spray, cough drops, throat lozenges, warm tea with honey/lemon, gargle salt water to soothe throat BRAT diet for diarrhea Clear liquids x 24 hours then advance as tolerated for nausea/vomiting Go to the ED if you develop a worsening in your condition- high fever not controlled by Tylenol or Motrin, dehydration, weakness, lethargy, shortness of breath, or chest pain. Follow up with your PCP in 3-5 days if symptoms persist. Patient Language: Macedonian Prescriptions: New azithromycin 250 mg tablet See Rx Instructions .ROUTE .COMPLEX Qty: 6 0RF Rx Instructions: For 250 mg dose pack: take 500 mg today (day 1), then 250 mg for 4 days (days 2-5) albuterol sulfate 90 mcg/actuation HFA aerosol inhaler 2 puff inhalation Q4-6H PRN (Reason: shortness of breath or wheezing) 30 Days Qty: 8.5 0RF No Action albuterol sulfate 2.5 mg /3 mL (0.083 %) solution for nebulization See Rx Instructions .ROUTE .COMPLEX PRN (Reason: sob) Rx Instructions: as prescribed albuterol sulfate 90 mcg/actuation HFA aerosol inhaler See Rx Instructions .ROUTE .COMPLEX PRN (Reason: sob) Rx Instructions: as prescribed lamotrigine 100 mg tablet 100 mg PO DAILY (DME) nebulizer and compressor [Home Nebulizer Plus Sidestream] Device See Rx Instructions .Route Qty: 1 0RF Rx Instructions: As directed epinephrine 0.3 mg/0.3 mL auto-injector 0.3 mg IM ONCE Qty: 2 0RF Rx Instructions: as a single dose; may repeat once Follow-up/Referrals: Leann,LIVIA Connolly [Primary Care Provider] - Time of Disposition: 12:00 Quality NIHSS Nursing Documentation ED NIHSS nursing documentation: reviewed/agree
== END 2024-09-02 12:15 | disposition home or self-care (01) ==
PROVIDERS: Emergency Provider Nurse Practitioner Family; PCP Physician Assistant
DX: J40 Bronchitis, not specified as acute or chronic (principal)
CPT/HCPCS: 99213; G0463

== ENCOUNTER 2024-10-05 16:16 | Emergency (ER) | payer OTHER, SELFPAY ==
--- NOTE | ~2024-10-05 | CT_ITS ---
EXAMINATION: CT brain wo con DATE: 10/05/2024 18:24 INDICATION: left sided facial weakness . TECHNIQUE: Computed tomography (CT) of the head was performed without intravenous contrast. The mA wa s adjusted according to patient size. Iterative reconstruction technique was employed. The dose-lengt h product was 605.33 mGy-cm. COMPARISON: None. FINDINGS: No acute intracranial hemorrhage or extra-axial fluid collection. No hydrocephalus, mass, or herniation. No acute ischemic infarct. Unremarkable dural venous sinus attenuation. No acute osseous abnormality. The aerated spaces are clear. IMPRESSION: No acute intracranial process. Reviewed, dictated and finalized at location K. LLMENT MANAGEMENT COORDINATOR
--- OUTSIDE RECORDS SUMMARY | 2024-10-05 16:42 | XMS_ITS | Data Portability ---
Author Organization [employer] , [facility]_Jack Address [address] [place] [address] Assessment No assessment recorded. Plan of Treatment Reminders Order Date Submit Date Provider Last Modified By Organization Details Last Modified Time Details Appointments CERTIFIED TECHNICIAN EST 2024 01:30P M Boogie Kc MD Not available Not available Not available Lab culture, urine 2023 024 [place] [facility], [address] [facility], [facility] [address], [address], 01/04/2024 11:55:34 CT + NG DNA, PCR, unspecifi ed specimen 2023 024 [place] [facility] Pol, [address] [place] [address], [address], 01/01/2024 09:42:38 drug of abuse panel, urine 2023 024 [facility], [address] [place] [address], [address], 12/31/2023 12:59:27 test, urine 2023 024 [facility], [address] [place], [address], 12/30/2023 16:11:16 pap, LB 2023 024 [place] [facility], [address] [place], [address], 01/01/2024 17:29:22 unlisted lab - Pap reflex hold 2023 024 [email or web address], [address] [place], [address], 02/12/2024 12:58:12 beta-HCG, quantitat saul, serum or plasma 2023 024 [place] [facility], [address] [place], [address], 01/15/2024 12:32:24 abo group + rh type, blood 2023 024 [facility], [address] [place], [address], 01/15/2024 18:54:16 CBC w/ auto diff 2023 024 [place] [facility], [address] [place], [address], 01/15/2024 10:53:26 culture, urine 2023 024 [place] [facility], [address] [place], [address], 02/16/2024 20:37:43 urinalysi s, dipstick 2023 024 [email or web address] [facility], [address] [place], [address], 07/26/2024 16:01:57 bacterial vaginosis + vaginitis panel, vaginal 2023 024 [facility], [address] [place], [address], 07/27/2024 13:09:36 Referral None recorded. Procedures None recorded. Surgeries None recorded. Imaging US, transvagi nal 2023 024 [place] Not available 12/31/2023 12:28:18 US, obstetric , transvagi nal 2023 024 [email or web address] Not available 01/14/2024 17:34:20 Medication Orders None recorded. Patient TargetsNo targets recorded. Patient InstructionsNo instructions recorded. Reason for Referral None Reported. Results Created Date Observation Date Name Description Value Unit Range Abnormal Flag Note LastModifiedBy Organization Detail LastModifiedTime 01/15/20 24 01/15/2024 ABO GROUP AND RH TYPE ABO group A Not Available [address], [address], 01/15/2024 18:54:16 01/15/20 24 01/15/2024 ABO GROUP AND RH TYPE Rh type RH(D) POSITI VE For addit ional infor omar brown refer to http: //[facility].Daniele stDia gnost ics.c om/fa q/FAQ 111 (This link is being provi ded for infor rashaun samson/ educa leesa l purpo ses only. ) NO COLLE CTION DATE RECEI PILLO. WE HAVE USED THE DATE THE SPECI MEN WAS RECEI PILLO BY THIS LABOR ATORY THE COLLE CTION DATE. IF THIS IS INCOR RECT, OMAR E CONTA CT CLIEN T SERVI ANAIS. PHONE NUMBE R: [phone] Not Available [address], [place], [address], 01/15/2024 18:54:16 12/27/19 24 01/01/2024 THINP REP TIS PAP clinical information: normal Infor rashaun n not provi ded Not Available [facility] [address], [address], 01/01/2024 17:29:22 12/27/19 24 01/01/2024 THINP REP TIS PAP LMP: normal INFOR RASHAUN N NOT PROVI DED Not Available [facility] [address], [address], 01/01/2024 17:29:22 12/27/19 24 01/01/2024 THINP REP TIS PAP prev. Pap: normal INFOR MATIO N NOT PROVI DED Not Available [address] [place], [address], 01/01/2024 17:29:22 12/27/19 24 01/01/2024 THINP REP TIS PAP prev. BX: normal INFOR MATIO N NOT PROVI DED Not Available [address] [place], [address], 01/01/2024 17:29:22 12/27/19 24 01/01/2024 THINP REP TIS PAP source: normal Cervi x Not Available [address], [address], 01/01/2024 17:29:22 12/27/19 24 01/01/2024 THINP REP TIS PAP statement of adequacy: normal Satis facto ry for evalu ation . Endoc ervic al/tr ansfo rmati on zone compo nent prese nt. Age and/o r menst rual statu s not provi ded Not Available [address], [address], 01/01/2024 17:29:22 12/27/19 24 01/01/2024 THINP REP TIS PAP interpretati on/result: normal Cytol ogy Resul ts: Negat saul for intra epith elial lesio n or malig oscar . Not Available [address] [place], [address], 01/01/2024 17:29:22 12/27/19 24 01/01/2024 THINP REP TIS PAP comment: normal This Pap test has been evalu ated with compu ter ryann taryn techn ology . Not Available [address] [place], [address], 01/01/2024 17:29:22 12/27/19 24 01/01/2024 THINP REP TIS PAP cytotechnolo gist: normal BES, CT( CP) CT scree mario locat ion: [facility] [place] [address] [place] [address] Not Available [facility] [address] [address] [place], [address], 01/01/2024 17:29:22 12/27/19 24 01/01/2024 THINP REP TIS PAP comment EXPLA NATOR Y NOTE: The Pap is a scree mario test for cervi renetta cance r. It is not a diagn ostic test and is subje ct to false negat saul and false posit saul resul ts. It is most relia ble when a satis facto ry sampl e, regul carley obtai lore, is submi tted with relev ant clini renetta findi ngs and histo ry, and when the Pap resul t is evalu ated along with histo puma and curre nt clini renetta infor matio n. Not Available [facility] [place] [address] [place], [address], 01/01/2024 17:29:22 12/30/19 24 12/31/2023 DRUG ABUSE PANEL 7 W/CON FIRM amphetamines Negati ve negati ve normal Not Available [address], [address], 12/31/2023 12:59:27 12/30/19 24 12/31/2023 DRUG ABUSE PANEL 7 W/CON FIRM barbiturates Negati ve negati ve normal Not Available [facility] [address] [place], [address], 12/31/2023 12:59:27 12/30/19 24 12/31/2023 DRUG ABUSE PANEL 7 W/CON FIRM benzodiazepi diallo Negati ve negati ve normal Not Available [facility] [address] [place], [address], 12/31/2023 12:59:27 12/30/19 24 12/31/2023 DRUG ABUSE PANEL 7 W/CON FIRM cocaine metabolites Negati ve negati ve normal Not Available [facility] [address] [place], [address], 12/31/2023 12:59:27 12/30/19 24 12/31/2023 DRUG ABUSE PANEL 7 W/CON FIRM cannabinoids Negati ve negati ve normal Not Available [facility] [address] [place], [address], 12/31/2023 12:59:27 12/30/19 24 12/31/2023 DRUG ABUSE PANEL 7 W/CON FIRM methadone Negati ve negati ve normal Not Available [facility] [address] [place], [address], 12/31/2023 12:59:27 12/30/19 24 12/31/2023 DRUG ABUSE PANEL 7 W/CON FIRM opiates Negati ve negati ve normal Not Available [facility] [address] [place], [address], 12/31/2023 12:59:27 12/30/19 24 12/31/2023 DRUG ABUSE PANEL 7 W/CON FIRM creatinine, urine 81 mg/dL 20 - 275 normal Not Available [facility] [address] [place], [address], 12/31/2023 12:59:27 12/30/19 24 12/31/2023 CT/NG chlamydia trachomatis CT neg negati ve normal This repor t is inten ded for us in clini renetta monit oring and manag ement of patie nts. It is not inten ded for use in medic al-le gal appli catio n. Not Available [facility] [address] [place], [address], 01/01/2024 09:42:38 12/30/19 24 12/31/2023 CT/NG neisseria gonorrhoeae GC neg negati ve normal This repor t is inten ded for us in clini renetta monit oring and manag ement of patie nts. It is not inten ded for use in medic al-le gal appli catio n. Not Available [address], [address], 01/01/2024 09:42:38 12/30/19 24 01/04/2024 THINP REP TIS PAP clinical information: NONE GIVEN Not Available [address], [address], 01/04/2024 11:55:33 12/30/19 24 01/04/2024 THINP REP TIS PAP LMP: NONE GIVEN Not Available [address], [address], 01/04/2024 11:55:33 12/30/19 24 01/04/2024 THINP REP TIS PAP prev. Pap: NONE GIVEN Not Available [address], [address], 01/04/2024 11:55:33 12/30/19 24 01/04/2024 THINP REP TIS PAP prev. BX: NONE GIVEN Not Available [address], [address], 01/04/2024 11:55:33 12/30/19 24 01/04/2024 THINP REP TIS PAP source: NONE GIVEN Not Available [address], [address], 01/04/2024 11:55:33 12/30/19 24 01/04/2024 THINP REP TIS PAP report status: TNP TEST( S) NOT PERFO RMED: REPOR T STATU S: [facility] ACY: GENER AL CATEG ORIZA TION: INTER PRETA TION/ RESUL T: INFEC TION: COMME NT: CYTOT ECHNO LOGIS T: REVIE W CYTOT ECHNO LOGIS T: PATHO LOGIS T: TEST NOT PERFO RMED No suita ble speci men recei pillo. Pleas e revie w the test requi remen ts at testd irect ory.q uestd iagno stics .com Not Available [address], [address], 01/04/2024 11:55:33 12/30/19 24 01/04/2024 CULTU RE, URINE , ROUTI NE culture, urine, routine SEE NOTE CULTU RE, URINE , ROUTI NE Micro Numbe r: [id number] Test Statu s: Final Speci men Sourc e: Urine Speci men Quali ty: Adequ ate Resul t: No Growt h Not Available [facility] [address] [address] , [place], [address], 01/04/2024 11:55:34 12/30/19 24 12/30/2023 pregn bhanu test, urine HCG positi ve Not Available [facility] [address] [place], [address], 12/27/2023 20:12:28 01/14/20 24 01/15/2024 CBC (INCL UDES DIFF/ PLT) WBC 8.1 thous and/u L 4.0 - 9.8 normal Not Available [employer] [place], [address], 01/15/2024 10:53:26 01/14/20 24 01/15/2024 CBC (INCL UDES DIFF/ PLT) RBC 4.6 renato on/uL 3.9 - 4.9 normal Not Available [employer] [place], [address], 01/15/2024 10:53:26 01/14/20 24 01/15/2024 CBC (INCL UDES DIFF/ PLT) hemoglobin 14.1 g/dL 11.8 - 14.8 normal Not Available [employer] [place], [address], 01/15/2024 10:53:26 01/14/20 24 01/15/2024 CBC (INCL UDES DIFF/ PLT) hematocrit 41.7 % 35.5 - 44.0 normal Not Available [employer] [place], [address], 01/15/2024 10:53:26 01/14/20 24 01/15/2024 CBC (INCL UDES DIFF/ PLT) MCV 91.2 fL 82.0 - 99.0 normal Not Available [address], [address], 01/15/2024 10:53:26 01/14/20 24 01/15/2024 CBC (INCL UDES DIFF/ PLT) MCH 30.9 pg 27.2 - 32.6 normal Not Available [address], [address], 01/15/2024 10:53:26 01/14/20 24 01/15/2024 CBC (INCL UDES DIFF/ PLT) MCHC 33.8 g/dL 31.5 - 35.5 normal Not Available [address], [address], 01/15/2024 10:53:26 01/14/20 24 01/15/2024 CBC (INCL UDES DIFF/ PLT) RDW-CV 12.7 % 11.5 - 14.5 normal Not Available [address], [address], 01/15/2024 10:53:26 01/14/20 24 01/15/2024 CBC (INCL UDES DIFF/ PLT) platelet 299 thous and/u L 140 - 350 normal Not Available [address], [address], 01/15/2024 10:53:26 01/14/20 24 01/15/2024 CBC (INCL UDES DIFF/ PLT) MPV 10.3 fL 9.3 - 12.4 normal Not Available [address], [address], 01/15/2024 10:53:26 01/14/20 24 01/15/2024 CBC (INCL UDES DIFF/ PLT) absolute neutrophil 5.25 thous and/u L 1.90 - 7.00 normal Not Available [address], [address], 01/15/2024 10:53:26 01/14/20 24 01/15/2024 CBC (INCL UDES DIFF/ PLT) absolute lymphocyte 1.97 thous and/u L 0.70 - 4.50 normal Not Available [address], [address], 01/15/2024 10:53:26 01/14/20 24 01/15/2024 CBC (INCL UDES DIFF/ PLT) absolute monocyte 0.66 thous and/u L 0.10 - 1.30 normal Not Available [address], [address], 01/15/2024 10:53:26 01/14/20 24 01/15/2024 CBC (INCL UDES DIFF/ PLT) absolute eosinophil 0.20 thous and/u L <0.70 normal Not Available [address], [address], 01/15/2024 10:53:26 01/14/20 24 01/15/2024 CBC (INCL UDES DIFF/ PLT) absolute basophil 0.05 thous and/u L <0.20 normal Not Available [address], [address], 01/15/2024 10:53:26 01/14/20 24 01/15/2024 CBC (INCL UDES DIFF/ PLT) absolute immature granulocyte 0.01 thous and/u L <0.03 normal Not Available [address], [address], 01/15/2024 10:53:26 01/14/20 24 01/15/2024 HCG, TOTAL , QUANT HCG, total, quant [address]366 mIU/m L <5 high Refer ence Range s are for femal es aged 18 years - Adult Nonpr egnan t or preme nopau lalo <5 Postm enopa usal <10 Value s from diffe rent assay metho ds may vary. The use of this assay to monit or or to diagn ose patie nts with cance r or any other condi tion unrel ated to pregn bhanu has not been valid ated by the [facility] actur er of this assay . Not Available [facility] [address] [place], [address], 01/15/2024 12:32:24 01/15/20 24 01/15/2024 HEMAG FABIENNE WBC 6.74 x10'3 /uL 4.5-11 .0 Not Available [facility] (Lab) [facility] [place] [place], [address], 01/15/2024 08:47:47 01/15/2001/15/2024 HEMAG FABIENNE RBC 4.41 x10'6 /uL 4.20-5 .40 Not Available [facility] ([facility]) [facility] [place]? [place], [address], 01/15/2024 08:47:47 01/15/20 24 01/15/2024 HEMAG FABIENNE hemoglobin 13.9 g/dL 12.0-1 6.0 Not Available [facility] ([facility]) [facility] [place] [facility] [place], [address], 01/15/2024 08:47:47 01/15/2001/15/2024 HEMAG FABIENNE hematocrit 40.5 % 38.0-4 8.0 Not Available [facility] ([facility]) [facility] [place] [address], [address], 01/15/2024 08:47:47 01/15/2001/15/2024 HEMAG FABIENNE MCV 91.8 fL 81.0-9 9.0 Not Available [facility] ([facility]) [facility] [place] [address], [address], 01/15/2024 08:47:47 01/15/20 24 01/15/2024 HEMAG FABIENNE MCH 31.5 pg 27.0-3 1.0 high Not Available [facility] ([facility]) [facility] [place] [address], [address], 01/15/2024 08:47:47 01/15/20 24 01/15/2024 HEMAG FABIENNE MCHC 34.3 g/dL 32.0-3 6.0 Not Available [facility] ([facility]) [facility] [place] [facility]? [place], [address], 01/15/2024 08:47:47 01/15/2001/15/2024 HEMAG FABIENNE RDW 12.9 % 11.5-1 4.5 Not Available [facility] ([facility]) [facility] [place] [facility]? [place], [address], 01/15/2024 08:47:47 01/15/2001/15/2024 HEMAG FABIENNE platelet count 257 x10'3 /uL 130-40 0 Not Available [facility] ([facility]) [facility] [place] [facility]? [place], [address], 01/15/2024 08:47:47 01/15/2001/15/2024 HEMAG FABIENNE MPV 9.5 fL 9.3-12 .2 Not Available [facility] ([facility]) [facility]? [place], [address], 01/15/2024 08:47:47 01/15/20 24 01/15/2024 BETA- HCG, QUANT beta-HCG, quant 8723 mIU/m L WEEKS OF PREGN BHANU REFER ENCE RANGE S Non-p regna nt femal e < or = 2 0.2 - 1 5 - 50 1 - 2 50 - 500 2 - 3 100 - 5000 3 - 4 500 - 10,00 0 4 - 5 1000 - 50,00 0 5 - 6 10,00 0 - 100,0 00 6 - 8 15,00 0 - 200,0 00 2 - 3 MONTH S 10,00 0 - 100,0 00 Not Available [facility] ([facility]) [facility] [place], [address], 01/15/2024 09:23:09 01/15/20 24 01/15/2024 TYPE AND SCREE N ABO/Rh(D) A POSITI VE Not Available [facility] (Lab) [address] [place] [address] [place], [address], 01/15/2024 09:30:07 01/15/20 24 01/15/2024 TYPE AND SCREE N antibody screen NEGATI VE Not Available [facility] ([facility]) [address] [place] [address]? [address], [address], 01/15/2024 09:30:07 01/15/20 24 01/15/2024 TYPE AND SCREE N xm expiration 2023,2 359 Not Available [facility] ([facility]) [facility] [place]? [place], [address], 01/15/2024 09:30:07 01/15/20 24 01/18/2024 SJS SURGI RENETTA PATHO LOGY path report [facility] Dep[facility] t[facility] of Labor atory Medic ine [address] [facility] [place] [address] Telep chago: , exten maverick [address] 07 Patho logy Repor t Surgi renetta Patho logy Repor t Name: NETTE URIARTE Specana men #: [id number] Age: [birth year] (Age: 23) Locat ion: NAE S Sex: F Proce dure Date: 2023 Hospi ignacia #: [id number] Date Recei pillo: 2023 Date Repor taryn: 2023 Provi symone: LANDY BOB Y Sourc e: Produ cts of ave ption Clini renetta Histo ry: Misse d abort ion. Gross Descr iptio n: Recei pillo in forma mario, label ed with a patie nt label not furth er desig nated , are multi ple friab le, soft to rubbe ry red-p ink tissu es that aggre gate 7.0 x 4.5 x 2.5 cm. Repre senta tive tissu e is submi tted in 3 casse ttes. Gross exami natio n (when appli cable ), inter preta tion, and sign out were perfo rmed at [facility], [address] [facility] [place] [address] . FINAL DIAGN OSIS: Uteri ne nicholas nts, dilat ation and curet tage: -Chor ionic villi with hydro pic degen erati on. -Infl kavya and degen erate d decid ual tissu e and gesta leesa l endom etriu m. Madhavi ctron icall y Muna d Out RUSTY BLUNT IN [id number] [id number] 3 Not Available [facility] ([facility]) [place]? [address] [facility] [place], [address], 01/18/2024 14:29:46 02/15/20 24 02/16/2024 CULTU RE, URINE , ROUTI NE culture, urine, routine SEE NOTE CULTU RE, URINE , ROUTI NE Micro Numbe r: [id number] Test Statu s: Final Speci men Sourc e: Urine Speci men Quali ty: Adequ ate Resul t: Mixed genit al alison isola taryn. These super ficia l bacte nuha are not indic ative of a urina ry tract infec tion. No furth er organ ism ident ifica tion is fred nted on this speci men. If clini neil indic ated, recol lect clean -catc h, mid-s tream urine and trans hoa immed iatel y to Urine Cultu re Trans port Tube. Not Available [facility] [address] [place], [address], 02/16/2024 20:37:43 07/26/20 24 07/27/2024 VAGIN ITIS PLUS STD PANEL bacterial vaginosis BV neg negati ve normal Not Available [address], [address], 07/27/2024 13:09:36 07/26/20 24 07/27/2024 VAGIN ITIS PLUS STD PANEL lisa species C. spp neg negati ve normal Not Available [address], [address], 07/27/2024 13:09:36 07/26/20 24 07/27/2024 VAGIN ITIS PLUS STD PANEL lisa glabrata C. gla neg negati ve normal Not Available [address], [address], 07/27/2024 13:09:36 07/26/20 24 07/27/2024 VAGIN ITIS PLUS STD PANEL trichomonas vaginalis CV/TV TRICH neg negati ve normal Not Available [address], [address], 07/27/2024 13:09:36 07/26/20 24 07/27/2024 VAGIN ITIS PLUS STD PANEL chlamydia trachomatis CT neg negati ve normal This repor t is inten ded for us in clini renetta monit oring and manag ement of rose barker. It is not inten ded for use in medic al-le gal appli catio n. Not Available [facility] [address] [place] [address], [address], 07/27/2024 13:09:36 07/26/20 24 07/27/2024 VAGIN ITIS PLUS STD PANEL neisseria gonorrhoeae GC neg negati ve normal This repor t is inten ded for us in clini renetta monit oring and manag ement of rose barker. It is not inten ded for use in medic al-le gal appli catio n. Not Available [facility] [address] [place], [address], 07/27/2024 13:09:36 07/26/20 24 07/26/2024 urina lysis , dipst ick Leukocytes Negati ve Not Available [address], [place], [address], 07/26/2024 15:40:05 07/26/20 24 07/26/2024 urina lysis , dipst ick Nitrite negati ve Not Available [address], [place], [address], 07/26/2024 15:40:05 07/26/20 24 07/26/2024 urina lysis , dipst ick Urobilinogen .2 Not Available [address], [place], [address], 07/26/2024 15:40:05 07/26/20 24 07/26/2024 urina lysis , dipst ick Protein Negati ve Not Available [address], [place], [address], 07/26/2024 15:40:05 07/26/20 24 07/26/2024 urina lysis , dipst ick pH 6.5 Not Available [address], [place], [address], 07/26/2024 15:40:05 07/26/20 24 07/26/2024 urina lysis , dipst ick Blood Negati ve Not Available [address] [place], [address], 07/26/2024 15:40:05 07/26/20 24 07/26/2024 urina lysis , dipst ick Specific [place] 1.015 Not Available [facility] [address] [place] [address] Blvd, [place], [address], 07/26/2024 15:40:05 07/26/20 24 07/26/2024 urina lysis , dipst ick Ketone Negati ve Not Available [address], [place], [address], 07/26/2024 15:40:05 07/26/20 24 07/26/2024 urina lysis , dipst ick Bilirubin Negati ve Not Available [address], [place], [address], 07/26/2024 15:40:05 07/26/20 24 07/26/2024 urina lysis , dipst ick Glucose Negati ve Not Available [address], [place], [address], 07/26/2024 15:40:05 07/26/20 24 07/26/2024 urina lysis , dipst ick Appearance Clear Not Available [address], [place], [address], 07/26/2024 15:40:05 07/26/20 24 07/26/2024 urina lysis , dipst ick Color Pale Yellow Not Available [address], [place], [address], 07/26/2024 15:40:05 12/31/19 24 12/30/2023 US, trans vagin al No observ ation record ed. Angelina [address], [place], [address], 12/31/2023 20:06:25 01/16/20 24 01/14/2024 US, obste tric, trans vagin al No observ ation record ed. [email or web address] Angelina [address], [place], [address], 01/18/2024 15:19:53 Result Notes None recorded. Problems Name Problem SNOMED Code Status Onset Date Resolution Date Notes Provider Name and Address Organization Details Recorded Time Mixed anxiety and depressive disorder 658425214 Active 2023 Rosenda Vazquez CNM Replaced by [facility] [place], [address], [facility] [employer] [facility] 20:59:52 Seizure disorder 489036893 Active 2023 Rosenda Vazquez CNM [address] [place] [address], [address], [facility] 21:00:04 Asthma 723693923 Active 2023 mild intermitte nt asthma Rosenda Vazquez CNM Replaced by [facility] [place], [address], [facility] 21:00:21 Posttrauma tic stress disorder 21480975 Active 2023 Rosenda Vazquez CNM [address] [place] [address], [address], [facility] 21:00:32 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 Procedures Surgical History Date Name Laterality Status Provider Name and Address Organization Details Recorded Time 024 Suture/Staple removal cancelled Hyacinth Moya [place] [facility] 01/27/2024 14:43:28 024 Dilation and curettage completed Tania Holley MD [address] [facility], [place], [address], [employer] [facility] 01/15/2024 14:20:20 024 Date of Last Pap Smear completed Lala Palma [facility] 02/15/2024 13:03:07 cholecystectomy completed Radharocio lucas [place] [facility] [employer] [facility] 12/30/2023 12:45:53 Imaging Results Imaging Date Name Status LastModified by Organization Details LastModified Time 12/30/2023 US, transvaginal completed [email or web address] Angelina [address], [place], [address], 12/31/2023 20:06:25 01/14/2024 US, obstetric, transvaginal completed [email or web address] Angelina [address], [place], [address], 01/18/2024 15:19:53 Procedure Notes None recorded. Medical Equipment None Reported. Allergies Allergen ID Allergen Name Allergen Category Reaction Reaction Severity Criticality Documentation Date Start Date Code Code System Note Provider Name and Address Organization Details Recorded Time [id number] 2824e coconut extract food,medi cation Not available Not available Not available 12/30/2023 84481 48 RxNorm Not Available Not Available Not Available [id number] 933049090 7133052e2 2824e latex environme nt,medica tion Not available Not available Not available 12/30/2023 89692 91 RxNorm Not Available Not Available Not Available [id number] 147399399 8591683n5 2824e ac extract food Not available Not available Not available 12/30/2023 22485 32 RxNorm Not Available Not Available Not Available [id number] 2824e honey bee venom medicatio n Not available Not available Not available 12/30/2023 06000 7 RxNorm Not Available Not Available Not Available [id number] 2824e adhesive tape environme nt,medica tion Not available Not available Not available 12/30/2023 98160 UNK Not Available Not Available Not Available Medications Name Sig Start Date Stop Date Status Note LastModified by Organization Details LastModified Time promethaz ine-DM 6.25 mg-15 mg/5 mL oral syrup TAKE 5 ML BY MOUTH EVERY 4 TO 6 HOURS NEEDED FOR COUGH active Not Available Not Available No t Available clonidine HCl 0.1 mg tablet active Not Available Not Available No t Available clindamyc in HCl 300 mg capsule 07/26 completed Not Available Not Available Not Available albuterol sulfate 2.5 mg/3 mL (0.083 %) solution for nebulizat ion active Not Available Not Available Not Available azithromy cynthia 250 mg tablet TK 2 TS PO ON DAY 1, THEN TK 1 T PO D FOR 4 DAYS active Not Available Not Available No t Available fluconazo le 150 mg tablet 07/26 completed Not Available Not Available Not Available valacyclo vir 1 gram tablet active Not Available Not Available Not Available hydrocodo ne 5 mg-acetam inophen 325 mg tablet Take 1 tablet every 6 hours by oral route as needed, for pain. 07/26 completed Not Available Not Available Not Available ondansetr on HCl 8 mg tablet 12/29 completed Not Available Not Available Not Available sertralin e 100 mg tablet active Not Available Not Available Not Available lamotrigi ne 25 mg tablet active Not Available Not Available Not Available dicyclomi ne 20 mg tablet active Not Available Not Available Not Available benzonata te 100 mg capsule TAKE 1 CAPSULE BY MOUTH EVERY 8 HOURS NEEDED 07/26 completed Not Available Not Available Not Available cephalexi n 500 mg capsule TAKE 1 CAPSULE BY MOUTH EVERY 8 HOURS FOR 7 DAYS 12/29 completed Not Available Not Available Not Available fluticaso ne propionat e 44 mcg/actua tion HFA aerosol inhaler 07/26 completed Not Available Not Available Not Available omeprazol e 20 mg capsule,d elayed release 12/29 completed Not Available Not Available Not Available monteluka st 10 mg tablet 12/29 completed Not Available Not Available Not Available hydroxyzi ne HCl 25 mg tablet 12/29 completed Not Available Not Available Not Available gabapenti n 100 mg capsule active Not Available Not Available Not Available azelastin e 137 mcg (0.1 %) nasal spray 12/29 completed Not Available Not Available Not Available epinephri ne 0.3 mg/0.3 mL injection , auto-inje ctor active Not Available Not Available Not Available methylpre dnisolone 4 mg tablets in a dose pack FOLLOW PACKAGE DIRECTIO NS active Not Available Not Available No t Available albuterol sulfate HFA 90 mcg/actua tion aerosol inhaler INHALE 2 PUFFS BY MOUTH EVERY 4 TO 6 HOURS NEEDED FOR SHORTNES S OF BREATH OR WHEEZING active Not Available Not Available No t Available ketoconaz ole 2 % topical cream 12/29 completed Not Available Not Available Not Available fluticaso ne propionat e 50 mcg/actua tion nasal spray,kenny pension 12/29 completed Not Available Not Available Not Available prazosin 2 mg capsule 12/29 completed Not Available Not Available Not Available naproxen 500 mg tablet 12/29 completed contrain dicated in pregnanc y Not Available Not Available Not Available neomycin- polymyxin -hydrocor t 3.5 mg-10,000 unit/mL-1 % ear drops,kenny p 12/29 completed Not Available Not Available Not Available Advair HFA 115 mcg-21 mcg/actua tion aerosol inhaler INHALE 2 PUFFS BY MOUTH TWICE DAILY. RINSE MOUTH WITH WATER AFTER USE. DO NOT SWALLOW 07/26 completed Not Available Not Available Not Available Airsupra 90 mcg-80 mcg/actua tion HFA aerosol inhaler 07/26 completed Not Available Not Available Not Available Vitals Date Recorded Body height Provider Name an d Address Organization Details Last Updated DateTime 12/30/2023 157.48 cm [facility] - [facility] 12/30/2023 12:39:31 Date Recorded Body mass index (BMI) Body weight Provider Name and Address Organization Details Last Updated DateTime 12/30/2023 54.7 kg/m2 052708.12 g [facility] [place] [facility] 12/30/2023 12:52:02 Date Recorded Body temperature Provider Name a nd Address Organization Details Last Updated DateTime 12/30/2023 97.6 [degF] [facility] 12/30/2023 12:52:04 Date Recorded Body height Provider Name an d Address Organization Details Last Updated DateTime 02/15/2024 157.48 cm Lala Palma [facility] 02/15/2024 12:58:56 Date Recorded Body mass index (BMI) Body weight Provider Name and Address Organization Details Last Updated DateTime 02/15/2024 53.3 kg/m2 492626.82 g Lala Palma [facility] 02/15/2024 13:00:37 Date Recorded Body temperature Provider Name a nd Address Organization Details Last Updated DateTime 02/15/2024 98.2 [degF] Lala Palma [employer] [facility] 02/15/2024 13:00:42 Date Recorded Body height Provider Name an d Address Organization Details Last Updated DateTime 07/26/2024 157.48 cm Clotilde Nieveser [facility] 07/26/2024 15:18:01 Date Recorded Body mass index (BMI) Body weight Provider Name and Address Organization Details Last Updated DateTime 07/26/2024 56.7 kg/m2 533498.35 [facility] 07/26/2024 15:19:18 Date Recorded Body temperature Provider Name a nd Address Organization Details Last Updated DateTime 07/26/2024 97.4 [degF] Clotilde Nieveser [employer] - [facility] 07/26/2024 15:19:27 Date Recorded Systolic blood pressure Diastolic blood pressure Provider Name and Address Organization Details Last Updated DateTime 12/30/2023 118 mm[Hg] 68 mm[Hg] Radha Jason [place] - [facility] 12/30/2023 12:51:43 Date Recorded Systolic blood pressure Diastolic blood pressure Provider Name and Address Organization Details Last Updated DateTime 02/15/2024 122 mm[Hg] 84 mm[Hg] Lala Palma [facility] 02/15/2024 13:01:45 Date Recorded Systolic blood pressure Diastolic blood pressure Provider Name and Address Organization Details Last Updated DateTime 07/26/2024 124 mm[Hg] 72 mm[Hg] Clotilde Nieveser [employer] - [facility] 07/26/2024 15:19:13 Social History Question Answer Notes LastModified by Organizat ion Details LastModified Time Tobacco Smoking Status Never Smoker Radha Gomez [facility], [facility] 12/30/2023 12:45:33 What Is Your Level Of Alcohol Consumption? None Information not available 12/30/2023 If You Are , What Was Your Level Of Alcohol Consumption Prior To ? Occasional Information not available 12/30/2023 Are You Blind Or Do You Have Difficulty Seeing? No Information not available 12/30/2023 Are You Currently Employed? Yes [email or web address] Information not available 02/15/2024 Are You Deaf Or Do You Have Serious Difficulty Hearing? No Information not available 12/30/2023 What Type Of Diet Are You Following? REGULAR Information not available 12/30/2023 Do You Or Have You Ever Used E-cigarettes Or Vape? Former User Of Electronic Cigarettes Information not available 12/30/2023 How Many Children Do You Have? 0 Information not available 12/30/2023 What Is Your Relationship Status? Single Information not available 12/30/2023 Are You Sexually Active? Yes Information not available 12/30/2023 Do You Use Any Illicit Or Recreational Drugs? No Information not available 12/30/2023 Do You Or Have You Ever Used Any Other Forms Of Tobacco Or Nicotine? Yes Information not available 12/30/2023 Sex: Female Functional Status Question Answer Note LastModified by Organization D etails LastModified Time What is your exercise level? None Information not available 12/30/2023 Mental Status None recorded. Family History Relationship Description Onset Age of this Age Resolved Age Notes LastModified by Organization Details LastModified Time Paternal Grandmother Malignant tumor of breast [email or web address] Not available 2023 12:44:41 Medical History Condition Response Panic Attacks Y Anxiety Disorder Y Asthma Y Gynecological History Statement/Question Response Date of Last Colonoscopy Flow Light Date of LMP 07/03/2024 Most Recent Bone Density HPV Vaccine N Date of Last Pap Smear 12/30/2023 Duration of Flow (days) 4 Most Recent Mammogram Current Control Method None Age at Menarche 10 Obstetrics History GPAL:G 0 P 0 0 1 0 Type Value Spontaneous 1 Total 0 Past Encounters Encounter ID Performer Location Encounter Start Date Encounter Closed Date Diagnosis/Indication Diagnosis SNOMED-CT Code Diagnosis ICD10 Code Diagnosis Note [id number] Rosenda Lam Vazquez CNM [facility] [address] [place] [address] 12/30/2023 11:53:22 12/30/2023 16:26:04 detection examination 28914834 Z32.00 test positive 788699653 Z32.01 LMP 11/05/2023I UP @ 5.6 wks. Cardiac activity not observed. Will evaluate viability in 1-2 wks. Yolk sac and embryo seen.Advis ed pt to f/u immediatel y if temp>101.; abdominal pain, vaginal bleeding greater than 1 pad/hr for greater than 2 hours; vaginal bleeding with or without cramping; bleeding w/clots; cramping like a period. Screening for malignant neoplasm of cervix 002341622 Z12.4 Depression screening 171 542340 Z13.31 She is taking sertraline but also stopped d/t - recommende d she restart at lower dose and can increase until she resumes 100 mg dose. Seizure disorder 4503113 02 G40.A09 Pt has h/o absence seizure for which she is seeing neurologis t. She stopped seizure medication s and noted small increase in seizure activity. She was on clonidine, lamotrigin e and prazosin for PTSD.Brain MRI and ambulatory EEG were normal. She is having seizures 2-3 times a week that her mother observes. Most recent one was 16 minutes. She reacted to her voice, she could be guided to sit down. She feels exhausted for several hours after seizure but does not experience any tonic/clon ic seizures.W ill send MFM referral for evaluation and medication management . Pt does not want to restart medication until she can see MFM.I spent at least 30 minutes with patient and her mother discussing history, reviewing neurology notes, and reviewing medication s. 100% of time spent in face to face consultati on. [id number] ISAEL KIRK [facility] [address] [place] [address] 01/14/2024 14:20:16 01/14/2024 15:50:54 Uncertain viability of 668160577 O36.80X9 Incomplete miscarriage 767263615 O03.4 Us today showed approx 6 wk MAB -- Discussed the common nature of SAB as up to 20% of pregnancie s, the likely genetic cause, and the lack of fault or blame within these circumstan anais. Discussed the fact that most likely this event will minimally impact future fertility. -- Women who are Rh(D) negative and unsensitiz ed should receive Rh(D)-immu ne globulin within 72 hours. For Medication Management ; RhoGam should be given within 72 hours of the first misoprosto l administra tion.-- Will collect ABO group and Rh Type, CBC, and Quant today. Discussed Management Options:Ex pectant Management , Medical Management , and D&C. EXPECTANT MANAGEMENT - Gestationa l age <13 weeks without evidence of infection/ hemorrhage .- It is successful in achieving complete expulsion in approximat mayra 80% of women.- Discussed possibilit y of prolonged course, may take 2-4 week. Education/ Precaution s on risk of infection and bleeding. Bleeding likely will be much heavier than menses and potentiall y with severe cramping.- Discussed if Expectant Management fails, it will lead to Medical Management and/or D & C. MEDICAL MANAGEMENT - ACOG: Medication Up to 70 Days of Gestation- Misoprosto l 800 micrograms vaginally or buccally, with one repeat dose as needed if there is no response the the first dose; 48 hours after first dose.- Most women will experience cramping/b leeding within 4 hours of administra tion, bleeding will slow down within 2 hours after passing the . Should expect complete resolution of by 5 days post treatment. - Ibuprofen 800 mg PO Q 8 hours as baseline pain control. Tramadol 50 mg PO Q 6 hours PRN. Heating pad to abdomen and/or lower back PRN.- Discussed if Medical Management fails, it will lead to D & C. DILATION & CURETTAGE (D&C)- The convention al treatment for early miscarriag e is a surgical procedure called dilation and curettage, or D&C.- The cervix (the opening to the uterus) is dilated, and an instrument is inserted that uses suction and/or a gentle scraping motion to remove the contents of the uterus.- D&C is generally recommende d for people who do not want to wait for spontaneou s passage of the , and in people with heavy bleeding or infection. - You should be able to resume most regular activities within a day or two. Mild cramping and spotting may occur for a few hours or days; cramping can be treated with NSAIDs. Plan of Care-- Return Precaution s Given: Increased Bleeding- Soaking more than 1 pad in 1 hour for 2 consecutiv e hours, passing more than two lemon sized blood clots in 1 hour, fever/chil ls, severe pain, or other worrisome symptoms.- - Serum hCG testing before treatment and 1 week after treatment is an option for follow-up examinatio n after . A serum hCG level decrease of at least 80% over 6? 7 days after initiating treatment with misoprosto l indicates a successful .- - Educated that she does not have to decide right now. She can go home and think about it. She can call the clinic and/or send me a message on the portal to let me know what she has decided.-- Pt thought about this and decided that she would like a D&C, states that she will not be able to handle passing tissue at home. Will schedule. Margaux nunez thirty minutes spent with patient in consultati on (>50% face-to-fa ce). Patient labs and notes were reviewed. Patient questions were answered. Additional patient care was coordinate d. [id number] QUIRINO KIRK[facility] [address] [place] [address] 02/15/2024 12:54:13 02/15/2024 13:51:12 Miscarriage 41921827 O03.9 Dysuria 17782380 R30.0 [id number] BRONWYN MAC NP [facility] [address] [place] [address] 07/26/2024 14:54:34 07/28/2024 09:22:46 Vaginal irritation 879455157 N89.8 - vaginitis/ STI swab sent, will treat per culture.- Reviewed vulvar hygiene: avoid tight or moist clothing, soaps, Vagisil and other wipes, cotton underwear only, and sleep without unscented detergent- Advised to figure out triggering factors (wet gym cloths, lotion, sensitivit y to partner, sensitive latex).- Discussed Silicon-ba sed menstrual discs or cups for menses.- Discussed OTC Vaginal boric acid role in vaginal infections . Health Concerns Section Related Observation LastModified by Organization Detai ls LastModified Time None Recorded Concern Status LastModified by Organization Details LastModified Time None Recorded Advance Directives Directive None Recorded Payers Encounter Date Sequence Insurance Name Policy Number Policy Toth Covered Member ID Toth Member ID Guarantor Name 12/30/2023 1 [employer] [facility] (MEDICAID HMO) [id number] Tia Uriarte [id number] Tia Uriarte 01/14/2024 1 [employer] (MEDICAID HMO) [id number] Tia Riveraon [id number] Tia Uriarte 02/15/2024 1 [employer] (MEDICAID HMO) [id number] Tia Riveraon [id number] Tia Uriarte 07/26/2024 1 [employer] (MEDICAID HMO) [id number] Tia Riveraon [id number] Tia Uriarte Notes Date Note Type Note Provider Name and Address Organization Details Recorded Time 12/30/2023 text/html Tia presents to office for missed period , LMP 11/03/2023First pregnancyhaving some nausea Rosenda Vazquez, AGUSTIN [address] [place], [address], [employer] [facility] 12/30/2023 21:23:33 01/14/2024 text/html Tia is a 23 year old woman. Pt is here to complete viably scan. LMP: 11/03/23 QUIRINO KIRK-[facility] [address] [facility], [place], [address], [facility] [employer] [facility] 01/14/2024 15:27:07 02/15/2024 text/html Tia is 23 ye ars old and here today for a follow up from having a miscarriage.She is down and depressed over her loss.She states that she is still having some tenderness in her lower abdomen area.She just wants to make sure everything is ok so she can start trying again.She needs a 's note saying she can go back to work. ROSELYN LARIOS, QUIRINO-BC [address] [facility], [place], [address], [facility] [employer] IV 02/15/2024 13:32:47 07/26/2024 text/html Tia in offic e for vaginal irritationLMP:10-27-2 4no current contraceptionpt states vaginal irritation comes and goes does not last longsymptoms started 2 months ago BRONWYN MAC NP [address] [facility], [place], [address], [facility] [employer] IV 07/27/2024 10:46:47 OBGyn Episode No OBEpisode recorded.
--- OUTSIDE RECORDS SUMMARY | 2024-10-05 16:42 | XMS_ITS ---
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
--- OUTSIDE RECORDS SUMMARY | 2024-10-05 16:42 | XMS_ITS ---
Author Organization [facility]ly [facility], [facility] Address [address] [place] [address] Care Team Providers Care Ship'S Officer Name Role Phone AbdoulLuana [phone] Social History Sex Assigned At : Social History Observation Description Sex Assigned At Female Encounters Encounter Location Date Provider Diagnosis [address] [address] 01/27/2024 Luana Schreiber Plan Of Treatment No Information Progress Notes * Tia VAZQUEZDOB:2000 (23 yo F)Acc No.[id number]:01/27/2024 Patient:?Tia VAZQUEZ :2000???Age:23 Y???Sex:Female Address:[address] [place] [address] * true * Date:? Generated for Catalinai ciro/Jarrell/eTransmitting on:?10/05/2024 04:42 PM SUPERVISOR WRAPPING ROOM
--- OUTSIDE RECORDS SUMMARY | 2024-10-05 16:42 | XMS_ITS | Clinical Summary ---
Author Organization [facility] Address [address] [place] [address]. [place], [place] [address] [place] [id number] Care Team Providers Care Taxi Dancer Name Role Phone Cathleen Noriega PA-C Primary Care Provider [phone] Allergies Active Allergy Reactions Criticality Noted Date Comments Bee Venom Anaphylaxis High 08/19/2023 Coconut Flavoring Agent (Non-Screening) Anaphylaxis High 08/19/2023 Dust Mite Extract Unknown 08/19/2023 Flavoring Agent Hives 08/19/2023 Latex Anaphylaxis High 08/19/2023 Tape Rash Low 08/19/2023 Wasp Venom Anaphylaxis High 08/19/2023 Medications sertraline (ZOLOFT) 100 MG tablet 3 Active albuterol (PROVENTIL) (2.5 MG/3ML) 0.083% nebulizer solution Take 3 mLs (2.5 mg total) by nebulization every 4 (four) hours as needed. Active albuterol sulfate HFA 108 (90 Base) MCG/ACT inhaler Inhale 2 puffs into the lungs every 4 (four) hours as needed. Active FLOVENT HFA 44 MCG/ACT inhaler Inhale 2 puffs into the lungs as needed. Active HYDROcodone-justen taminophen (NORCO) 5-325 MG tabletIndicatio ns:Acute Pain < 3 Day Supply Take 1 tablet by mouth every 6 (six) hours as needed. Indications: Acute Pain < 3 Day Supply 10 tablet 4 Active gabapentin (NEURONTIN) 100 MG capsule 4 Active lamoTRIgine (LAMICTAL) 25 MG tabletIndicatio ns:Seizure (CMS/HCC HHS/HCC) Take 2 tablets (50 mg total) by mouth 2 (two) times daily. 360 tablet 3 4 03/25/20 25 Active hyoscyamine (LEVSIN) 0.125 MG tablet Take 1 tablet (0.125 mg total) by mouth every 4 (four) hours as needed for Cramping. 20 tablet 5 Active traMADol (ULTRAM) 50 MG tabletIndicatio ns:Acute Pain < 3 Day Supply Take 1 tablet (50 mg total) by mouth every 6 (six) hours as needed. Indications: Acute Pain < 3 Day Supply 12 tablet 5 Active Active Problems Problem Noted Date Diagnosed Date Missed ([facility]) 01/15/2024 Encounters Date Type Department Care Team Description 09/25/2024 7:55 PM BIOLOGICAL AIDE - 09/25/2024 11:13 PM BIOLOGICAL AIDE Emergency [facility] [place] [address] Temi Rush PA Abdominal Pain Discharge Disposition: Home or Self Care (Routine Discharge) 09/25/2024 Travel 09/08/2024 Telephone [facility] Mult[facility]pec[facility] - [facility] [address], [address] [place] [phone] Natalie Mo MD Results (Provider message given to patient. VU/Patient follow up scheduled) 09/03/2024 [facility] [address], [address] [place] [phone] Bebeto Cárdenas MD 08/23/2024 Scan [facility] INFO SRVCS Scanned, [facility] EEG (SCAN) from Last 3 Months Social History Tobacco Use Types Packs/Day Years Used Date Smoking Tobacco: Never Passive Smoke Exposure: Current Smokeless Tobacco: Never Tobacco Cessation:Counseling Given: No Alcohol Use Standard Drinks/Week Comments Not Currently 0 (1 standard drink = 0.6 oz pur e alcohol) PHQ-2 Answer Date Recorded Patient Health Questionnaire-2 Score 0 12/01/2023 Comments No Sex and Gender Information Value Date Recorded Sex Assigned at Female 08/17/2023 12:07 PM BIOLOGICAL AIDE Legal Sex Female 6:07 PM BIOLOGICAL AIDE Gender Identity Female 08/17/2023 12:07 PM BIOLOGICAL AIDE Sexual Orientation Not on file Last Filed Vital Signs Vital Sign Reading Time Taken Comments Blood Pressure 142/94 09/25/2024 7:38 PM BIOLOGICAL AIDE Pulse 90 09/25/2024 7:38 PM BIOLOGICAL AIDE Temperature 36.3 ??C (97.3 ??F) 09/25/2024 7:38 PM CS T Respiratory Rate 20 09/25/2024 7:38 PM BIOLOGICAL AIDE Oxygen Saturation 100% 09/25/2024 7:38 PM BIOLOGICAL AIDE Inhaled Oxygen Concentration - - Weight 132.9 kg (293 lb) 09/25/2024 7:38 PM BIOLOGICAL AIDE Height 157.5 cm (5' 2 ) 09/25/2024 7:38 PM BIOLOGICAL AIDE Body Mass Index 53.59 09/25/2024 7:38 PM BIOLOGICAL AIDE Plan of Treatment Upcoming Encounters Date Type Department Care Team (Late st Contact Info) Description 11/08/2024 1:20 PM BIOLOGICAL AIDE Office Visit [facility] Multispecialty Care - [address], [address] [place] [phone] Natalie Mo MD [address] [place] [address] Health Maintenance Due Date Last Done Comments Cervical Cancer Screening Pa p Smear (Age 21 to 29) Every 3 Years 1999 Cervical Cancer Screening 1999 Annual Physical 2002 HPV Vaccines (1 - 3-dose series) 2014 Hepatitis C 2017 DTaP, Tdap and Td Vaccines ( 1 - Tdap) 2018 Hepatitis B Vaccines (1 of 3 - 19+ 3-dose series) 2018 COVID-19 Vaccine (2023-2 5 season) 2024 Influenza Adult (#1) 2024 PHQ-2 (Phys[facility]) 09/07/2024 12/01/2023 PHQ-2 ([facility]) 11/30/2024 12/01/2023 Meningococcal B Vaccine Aged Out No l onger eligible based on patient's age to complete this topic Meningococcal Vaccine Aged Out No magalis ratna eligible based on patient's age to complete this topic Pneumococcal Vaccine: Pediat rics (0 to 5 Years) and At-Risk Patients (6 to 64 Years) Aged Out No longer eligi ble based on patient's age to complete this topic RSV Immunizations Under 20 Months Aged Out No longer eligible based on patient's age to complete this topic Procedures Procedure Name Priority Date/Time Associated Diagnosis Comments CT ABD+PEL W CON STAT 09/25/2024 9:28 PM BIOLOGICAL AIDE URINALYSIS, AUTO, COMPLETE STAT 09/25/2024 8:08 PM BIOLOGICAL AIDE COMPREHENSIVE METABOLIC PANEL STAT 09/25/2024 8:08 PM BIOLOGICAL AIDE CBC W/DIFF AUTOMATED STAT 09/25/2024 8:08 PM BIOLOGICAL AIDE POCT URINE (BACK OFFICE) STAT 09/25/2024 7:59 PM BIOLOGICAL AIDE EEG GENERIC (SCAN ORDER) 08/23/2024 from Last 3 Months Results * CT ABD+PEL W CON (09/25/2024 9:28 PM BIOLOGICAL AIDE) Anatomical Region Laterality Modality Abdomen Computed Tomogra phy 09/25/2024 9:29 PM BIOLOGICAL AIDE Impressions 09/25/2024 9:31 PM BIOLOGICAL AIDE Impression: No definite acute CT findings within the abdomen or pelvis. Ordered By: TEMI RUSH Interpreted By: Ulises Lopes MD, 09/25/2024 9:29 PM Narrative 09/25/2024 9:31 PM BIOLOGICAL AIDE [address] [address] [address] abdomen and pelvis with contrast: 09/25/2024 9:29 PM INDICATION: 24 year old with history of right-sided abdominal pain for 5 days TECHNIQUE: After the administration of 100 cc Isovue 370, intravenously, ??CT is performed utilizing contiguous 3 mm axial collimation through the abdomen, pelvis. ??Additionally, multiplanar reformats were obtained from axial source data. A dose lowering technique was used for this procedure, which may include, but is not limited to, dose reduction techniques, automated exposure control, the use of a iterative reconstruction, and ALARA (as low as reasonably achievable)/image gently techniques. COMPARISON: None available. FINDINGS: The lung bases are well aerated. Heart size is normal. Abdomen: There is a 1.6 cm hypodensity involving the inferior portion of the posterior segment right hepatic lobe that most likely represents a hemangioma (best seen on series 2 image 59). Additional hypodensity involving the superior aspect of the right hepatic lobe measuring 0.5 cm (best seen on series 2 image 32). Cholecystectomy. No bile duct dilation. The pancreas is negative. The spleen is normal in size. There is no adrenal mass. There is no perinephric abnormality. There is no renal mass. There is no hydronephrosis. There is no nephrolithiasis. The caliber the abdominal aorta is normal. No retroperitoneal adenopathy. Pelvis: The appendix is normal. There is no bowel dilation or wall thickening. No free fluid within the abdomen or pelvis. No free intraperitoneal air. Urinary bladder is relatively decompressed. No acute fracture nor destructive process of the visualized osseous structures. Mild chronic appearing superior endplate compression deformity of the L2 vertebral body intervertebral disc height loss at L1-2 with endplate degenerative change at this level. Procedure Note Ulises Lopes MD - 09/25/[address] [address] [address] abdomen and pelvis with contrast: 09/25/2024 9:29 PM INDICATION: 24 year old with history of right-sided abdominal pain for 5days TECHNIQUE: After the administration of 100 cc Isovue 370, intravenously,CT is performed utilizing contiguous 3 mm axial collimation through theabdomen, pelvis. Additionally, multiplanar reformats were obtained fromaxial source data. A dose lowering technique was used for this procedure,which may include, but is not limited to, dose reduction techniques,automated exposure control, the use of a iterative reconstruction, andALARA (as low as reasonably achievable)/image gently techniques. COMPARISON: None available. FINDINGS: The lung bases are well aerated. Heart size is normal. Abdomen: There is a 1.6 cm hypodensity involving the inferior portion of theposterior segment right hepatic lobe that most likely represents ahemangioma (best seen on series 2 image 59). Additional hypodensityinvolving the superior aspect of the right hepatic lobe measuring 0.5 cm(best seen on series 2 image 32). Cholecystectomy. No bile duct dilation.The pancreas is negative. The spleen is normal in size. There is noadrenal mass. There is no perinephric abnormality. There is no renal mass.There is no hydronephrosis. There is no nephrolithiasis. The caliber theabdominal aorta is normal. No retroperitoneal adenopathy. Pelvis: The appendix is normal. There is no bowel dilation or wall thickening. Nofree fluid within the abdomen or pelvis. No free intraperitoneal air.Urinary bladder is relatively decompressed. No acute fracture nordestructive process of the visualized osseous structures. Mild chronicappearing superior endplate compression deformity of the L2 vertebral bodyintervertebral disc height loss at L1-2 with endplate degenerative changeat this level. Impression: No definite acute CT findings within the abdomen or pelvis. Ordered By: TEMI RUSH Interpreted By: Ulises Lopes MD, 09/25/2024 9:[address] CT Final Resu lt * (ABNORMAL) URINALYSIS, AUTO, COMPLETE (09/25/2024 8:08 PM BIOLOGICAL AIDE) SPECIMEN TYPE URINE CLEAN CATCH 09/25/2024 7:59 PM [facility] COLOR (U) LIGHT YELLOW 09/25/2024 8:19 PM [facility] TRANSPARENCY CLEAR 09/25/2024 8:19 PM [facility] SPECIFIC GRAVITY (U) 1.029 1.001 - 1.030 09/25/2024 8:19 PM [facility] U PH 5.5 5.0 - 9.0 09/25/2024 8:19 PM [facility] LEUKOCYTES (U) NEGATIVE NEGATIVE 09/25/2024 8:19 PM [facility] NITRITES NEGATIVE NEGATIVE 09/25/2024 8:19 PM [facility] PROTEIN RANDOM (U) NEGATIVE <30 MG/DL 09/25/2024 8:19 PM [facility] GLUCOSE (U) NORMAL NORMAL MG/DL 09/25/2024 8:19 PM [facility] KETONES MG/DL (U) NEGATIVE NEGATIVE MG/DL 09/25/2024 8:19 PM [facility] UROBILINOGEN NORMAL NORMAL MG/DL 09/25/2024 8:19 PM [facility] BILIRUBIN (U) NEGATIVE NEGATIVE MG/DL 09/25/2024 8:19 PM [facility] BLOOD (U) 1+(A) NEGATIVE 09/25/2024 8:19 PM [facility] MUCUS RARE /LPF 09/25/2024 8:19 PM [facility] RBC/HPF 5 <6 /HPF 09/25/2024 8:19 PM [facility] BACTERIA (U) FEW(A) NONE /HPF 09/25/2024 8:19 PM [facility] SQUAMOUS EPITHELIALS FEW /HPF 09/25/2024 8:19 PM BIOLOGICAL AIDE [facility] URINE SPECIMEN OBTAINED BY CLEAN CATCH PROCEDURE / Unknown 09/25/2024 8:08 PM BIOLOGICAL AIDE us Temi BHAKTA URINE ORDERABLES Final Res ult [facility] [address] [place] [address], * (ABNORMAL) COMPREHENSIVE METABOLIC PANEL (09/25/2024 8:08 PM BIOLOGICAL AIDE) GLUCOSE 68(L) 70 - 99 MG/DL 09/25/2024 8:37 PM [facility] BUN 13 7 - 18 MG/DL 09/25/2024 8:37 PM [facility] CREATININE S/P/B 0.84 0.55 - 1.02 MG/DL 09/25/2024 8:37 PM [facility] SODIUM S/P/B 141 136 - 145 MMOL/L 09/25/2024 8:37 PM [facility] POTASSIUM S/P/B 3.6 3.5 - 5.1 MMOL/L 09/25/2024 8:37 PM [facility] CHLORIDE S/P/B 111 97 - 115 MMOL/L 09/25/2024 8:37 PM BIOLOGICAL AIDE [facility] CO2 24.6 21 - 32 MMOL/L 09/25/2024 8:37 PM [facility] CALCIUM S/P/B 9.1 8.5 - 10.1 MG/DL 09/25/2024 8:37 PM [facility] BILIRUBIN TOTAL S/P/B 0.6 0.2 - 1.2 MG/DL 09/25/2024 8:37 PM [facility] Comment: THIS ASSAY IS NOT RECOMMENDED FOR PATIENTS UNDERGOING TREATMENT WITH ELTROMBOPAG DUE TO THE POTENTIAL FOR FALSELY ELEVATED RESULTS. TOTAL PROTEIN S/P/B 7.2 6.4 - 8.2 G/DL 09/25/2024 8:37 PM [facility] ALBUMIN S/P/B 3.5 3.4 - 5.0 G/DL 09/25/2024 8:37 PM BIOLOGICAL AIDE [facility] AST 17 15 - 37 U/L 09/25/2024 8:37 PM [facility] ALT 25 14 - 55 U/L 09/25/2024 8:37 PM [facility] ALKALINE PHOSPHATASE S/P/B 55 50 - 136 U/L 09/25/2024 8:37 PM [facility] ANION GAP 5.4 2 - 10 MMOL/L 09/25/2024 8:37 PM [facility] BUN CREATININE RATIO 15.4 6 - 26 09/25/2024 8:37 PM [facility] A/G RATIO 0.9(L) 1.0 - 2.0 RATIO 09/25/2024 8:37 PM [facility] GFR ESTIMATE >90 >90 ML/MIN/1.7 3 M2 09/25/2024 8:37 PM [facility] Comment: NOTE: eGFR is not calculated for patients <18 years of age or gender unknown. This is an estimated GFR calculation using the new CKD EPI creatinine equation without race and so does not require a correction factor for race. This estimated GFR should not be used for calculating drug doses. 09/25/2024 8:08 PM BIOLOGICAL AIDE us Temi [facility] Final Resu lt [facility] [address] [place] [address], * (ABNORMAL) CBC W/DIFF AUTOMATED (09/25/2024 8:08 PM BIOLOGICAL AIDE) [facility] WBC 7.95 4.5 - 11.0 x10'3/uL 09/25/2024 8:25 PM BIOLOGICAL AIDE [facility] RBC 4.41 4.20 - 5.40 x10'6/uL 09/25/2024 8:25 PM BIOLOGICAL AIDE [facility] HGB 13.7 12.0 - 16.0 G/DL 09/25/2024 8:25 PM BIOLOGICAL AIDE [facility] HCT 38.9 38.0 - 48.0 % 09/25/2024 8:25 PM BIOLOGICAL AIDE [facility] MCV 88.2 81.0 - 99.0 FL 09/25/2024 8:25 PM BIOLOGICAL AIDE [facility] MCH 31.1(H) 27.0 - 31.0 PG 09/25/2024 8:25 PM BIOLOGICAL AIDE [facility] MCHC 35.2 32.0 - 36.0 G/DL 09/25/2024 8:25 PM [facility] RDW 12.5 11.5 - 14.5 % 09/25/2024 8:25 PM [facility] PLT 267 130 - 400 x10'3/uL 09/25/2024 8:25 PM BIOLOGICAL AIDE [facility] MPV 9.5 9.3 - 12.2 FL 09/25/2024 8:25 PM [facility] DIFFERENTIAL TYPE AUTOMATED DIFFERENTIAL 09/25/2024 8:25 PM [facility] NEUTROPHILS % 65.1 % 09/25/2024 8:25 PM [facility] LYMPHOCYTES % 24.5 % 09/25/2024 8:25 PM [facility] MONOCYTES % 7.2 % 09/25/2024 8:25 PM BIOLOGICAL AIDE [facility] EOSINOPHILS 2.4 % 09/25/2024 8:25 PM BIOLOGICAL AIDE [facility] BASOPHILS 0.5 % 09/25/2024 8:25 PM BIOLOGICAL AIDE [facility] IMMATURE GRANS % 0.3 % 09/25/19 8:25 PM BIOLOGICAL AIDE [facility] ABS. NEUTROPHILS 5.18 1.80 - 7.70 x10'3/uL 09/25/2024 8:25 PM BIOLOGICAL AIDE [facility] ABS. LYMPHOCYTES 1.95 1.00 - 4.80 x10'3/uL 09/25/2024 8:25 PM BIOLOGICAL AIDE [facility] ABS. MONOCYTES 0.57 0.24 - 0.86 x10'3/uL 09/25/2024 8:25 PM BIOLOGICAL AIDE [facility] ABS. EOSINOPHILS 0.19 0.04 - 0.36 x10'3/uL 09/25/2024 8:25 PM BIOLOGICAL AIDE [facility] ABS. BASOPHILS 0.04 0.01 - 0.08 x10'3/uL 09/25/2024 8:25 PM BIOLOGICAL AIDE [facility] ABS. IMMATURE GRANULOCYTES 0.02 0.00 - 0.49 x10'3/uL 09/25/2024 8:25 PM BIOLOGICAL AIDE [facility] 09/25/2024 8:08 PM BIOLOGICAL AIDE us [facility] Final Resu lt [facility] [address] [place] [address], [place] [phone] * POCT urine (09/25/2024 7:59 PM BIOLOGICAL AIDE) URINE HCG TEST NEGATIVE Internal Control: VALID us Temi BHAKTA POINT OF CARE TEST ORDERAB LES Final Result * EEG GENERIC (SCAN ORDER) (08/23/2024) 08/23/2024 us [facility] Scanned SCANNING Final Resu lt from Last 3 Months Insurance [employer] Care Teams Taxi Dancer Relationship Specialty Start Date End Date Cathleen Noriega PA-C [address] [place] [phone] PCP - General PHYSICIAN SALES ASSISTANT DISPLAYS 01/15/24
--- OUTSIDE RECORDS SUMMARY | 2024-10-05 16:42 | XMS_ITS | Referral Summary ---
Author Organization [facility] Address [address] [place] [address] Care Team Providers Care Newsperson Name Role Phone Cathleen Noriega PA-C Primary Care Provider Source Comments [facility],non-owned Affiliates and Associated Physician Practices is amultiple site organization consisting of ambulatory clinics and hospital sitesin [place], [place], [place] and [place]. This disclosure is being madepursuant to the Care Everywhere program and may not contain all information available regarding this patient. Last updated 18.[facility] Encounters Date Type Department Care Team Description 09/27/2024 2:15 PM HIMS CLERK Office Visit [facility] - ENT [address] [place] [phone] Solis Enrique MD Vocal cord dysfunction (Primary Dx) 09/06/2024 Travel 09/06/2024 3:00 PM HIMS CLERK Office Visit [facility] - [facility]NT [address] [place] [phone] Solis Enrique MD Vocal cord dysfunction (Primary Dx) 08/23/2024 Telephone [facility] - [facility] [address] [place] [phone] Solis Enrique MD Appointment 07/12/2024 Travel from Last 3 Months Allergies Active Allergy Reactions Criticality Noted Date Comments Adhesive Sensitivity Rash,Unknown Medium 08/19/2023 Bee Venom Unknown 09/06/2024 Coconut Flavor Anaphylaxis,Unknown High 08/19/2023 Dust Mite Extract Unknown 09/06/2024 Flavoring Agent Urticaria Medium 08/19/2023 Latex Anaphylaxis,Unknown High 08/19/2023 [place] Flavor Rash Medium 09/06/2024 Wasp Venom Anaphylaxis,Unknown High 08/19/2023 Medications * Be aware that medications may not be up to date on this document. Alwaysverify current medications with the patient. Medication Sig Dispensed Refills Start Date End Date Status albuterol HFA (Proventil; Ventolin; Proair) 108 (90 Base) MCG/ACT inhaler Inhale 2 (two) puffs by mouth every 6 hours as needed Active lamoTRIgine (LaMICtal) 25 MG tablet Take 2 (two) tablets by mouth 2 times daily 03/25/2024 03/25/2025 Active hyoscyamine (Levsin) 0.125 MG IR tablet Take 1 (one) tablet by mouth every 4 hours as needed 09/26/2024 Active traMADol (Ultram) 50 MG tablet Take 1 (one) tablet by mouth as needed 09/26/2024 Active Social History Tobacco Use Types Packs/Day Years Used Date Smoking Tobacco: Never Smokeless Tobacco: Never Tobacco Cessation:Counseling Given: Not Answered Alcohol Use Standard Drinks/Week Comments Not Currently 0 (1 standard drink = 0.6 oz pur e alcohol) Sex and Gender Information Value Date Recorded Sex Assigned at Not on file Gender Identity Not on file Sexual Orientation Not on file Last Filed Vital Signs Vital Sign Reading Time Taken Comments Blood Pressure 125/69 09/27/2024 2:20 PM HIMS CLERK Pulse 91 09/27/2024 2:20 PM HIMS CLERK Temperature - - Respiratory Rate - - Oxygen Saturation - - Inhaled Oxygen Concentration - - Weight 142 kg (313 lb) 09/27/2024 2:20 PM HIMS CLERK Height 157.5 cm (5' 2 ) 09/27/2024 2:20 PM HIMS CLERK Body Mass Index 57.25 09/27/2024 2:20 PM HIMS CLERK Plan of Treatment Upcoming Encounters Date Type Department Care Team (Late st Contact Info) Description 10/11/2024 10:00 AM HIMS CLERK Office Visit [facility] - ENT [address] [place] [phone] Solis Enrique MD [address] [place] [address] [place] [address] Procedures Procedure Name Priority Date/Time Associated Diagnosis Comments FL LARYNGOSCOPY,FLEX FIBER,DIAGNOSTIC Routine 09/06/2024 5:36 PM HIMS CLERK Vocal cord dysfunction from Last 3 Months Results * FL LARYNGOSCOPY,FLEX FIBER,DIAGNOSTIC (09/06/2024 5:36 PM HIMS CLERK) Narrative Solis Enrique MD - 09/06/2024 5:36 PM HIMS CLERK Solis Enrique MD ? 09/06/2024 ??5:41 PM Procedure Note Endoscopy Type: ??Laryngoscopy without stroboscopy [id number] Endoscope: Flexible 4mm Scope Anesthesia: Lidocaine 2% and Neosynephrine 1/2% (nasal) Procedure Details: The patient was sitting upright in a chair with the head in a slightly anterior sniffing position. The topical anesthesia was administered and then adequate time was allowed ??for an anesthetic effect. The endoscope was passed thru the nasal cavity with the tongue retracted anteriorly. The tip of the endoscope was positioned in the oropharynx which allowed a complete view of the base of tongue there is remarkable for an excess amount of lymphoid tissue that occludes the vallecula, pyriform recesses, epiglottis, bilateral true and false vocal folds, the interarytenoid and post cricoid region, and the immediate subglottis. Findings: Nasal cavity clear without secretions, nasopharynx open, soft palate elevates symmetrically, base of tongue is normal, piriform sinuses clear without secretions, bilateral vocal cord mobility is normal. ??No evidence of significant supraglottic or posterior glottic edema or erythema. ??Normal straight free edge to the vocal fold. Biofeedback provided by allowing the patient to watch the video screen while performing the flexible laryngoscopy. Nasal inhalation and ee sound revealed to the patient abduction and adduction of the vocal folds. Condition: Stable. ??Patient tolerated procedure well. Complications: None I was present for the entirety of the procedure. Solis Enrique MD PROCEDURE/MINOR SURG ICAL ORDERABLES from Last 3 Months Care Teams Newsperson Relationship Specialty Start Date End Date Cathleen Noriega PA-C [address] [place] [phone] PCP - General 09/06/24
--- OUTSIDE RECORDS SUMMARY | 2024-10-05 16:42 | XMS_ITS | Patient Health Record ---
Author Organization [facility] Address [address] [place] [address] Care Team Providers Care Mast Maker Name Role Phone Luana Schreiber Unavailable [phone] Allergies Allergen (clinical drug ingredient) Drug/Non Drug Allergy documented on EMR Reaction Allergy Type Onset Date Status Coconut Flavor Unknown Drug Allergy Ac tive Wasp Venom Unknown Drug Allergy Active Adhesive Unknown Allergy Active Bee Sting Unknown Allergy Active Dust Mites Unknown Allergy Active Latex Latex Unknown Allergy Active Grover Passion Fruit OS Unknown Drug Allergy Active Reason For Referral Reason Therapy; recent misc arriage Diagnosis 1 Depressed (F32.9) Diagnosis 2 Anxiety (F41.9) Diagnosis 3 PTSD (post-traumatic stress disorder) (F43.10) Referral Organization [facility] Referring Provider First Name Luana Referring Provider Last Name Abdoul Referring Provider Speciality Psychiatry Referred Provider Specialty Psychiatry Clinical Notes Sathish Pillai 10:16:51 AM >MARTI PW attempted to contact [facility] regarding referral. Received the following message, We're sorry your call cannot be completed at this time. HN unable to leave at this time., Sathish Pillai 01/27/2024 04:18:23 PM >MARTI PW contacted [facility] regarding referral. Consumer is in agreement with therapy referral. MARTI explained the therapy process and provided Central Access contact information with instructions. Consumer voiced understanding and had no additional questions at this time. Case addressed and closed. Referral Priority Routine Medications Medication SIG (Take, Route, Frequency, Duration) Notes Start Date End Date Status Active Sertraline HCl 200 MG 1 capsule Orally O nce a day for 30 days Active EPINEPHrine (Anaphylaxis) Active lamoTRIgine 25 MG 2 tablets Orally raissa ly for 30 days Active Albuterol Active Omeprazole 10 MG 1 capsule 30 minutes before morning meal Orally Once a day Active Social History Tobacco Use: Social History Observation Description Date Details (start date - stop date) Current Smoker NA - NA Sex Assigned At : Social History Observation Description Sex Assigned At Female Dont use, Tobacco Use/Smoking Question Answer Notes Are you a current every day smoker Additional Findings: Tobacco User e-Cigarette Problems Problem Type SNOMED Code ICD Code Onset Dates Problem Status W/U Status Risk Notes Problem Posttraumatic stress disorder (06097005) PTSD (post-traumat ic stress disorder) (F43.10) Active confirmed Problem Anxiety (56207313) Anxiety (F41.9) Active confirmed Problem Depressed (84205852) Depressed (F32.9) Active confirmed Encounters Encounter Location Date Provider Diagnosis [address] [address] 11/19/2023 Luana Abdoul Depressed F32.9 ; Anxiety F41.9 and PTSD (post-traumatic stress disorder) F43.[address] [address] 01/01/2024 Luana Abdoul Depressed F32.9 ; Anxiety F41.9 and PTSD (post-traumatic stress disorder) F43.[address] [address] 01/21/2024 Luana Abdoul Depressed F32.9 ; Anxiety F41.9 and PTSD (post-traumatic stress disorder) F43.[address] [address] 01/28/2024 Luana Abdoul Depressed F32.9 ; PTSD (post-traumatic stress disorder) F43.10 and Anxiety F41.[address] [address] 12/17/2023 Luana Abdoul [address] [address] 01/22/2024 Luana Abdoul [address] [place] [address] 01/27/2024 Luana Abdoul [address] [place] [address] 01/22/2024 Luana Schreiber Assessments Encounter Date Diagnosis (ICD Code) Assessment Notes Treatment Notes Treatment Clinical Notes Section Notes 11/19/2023 Depressed (ICD-10 - F32.9) Will refill Zoloft and Lamictal at this time. Pt rpeorts that her moods are stable at this time At last visit, Wllbutrin was not started as pt was seeing neurology for possible seizures. Reminded pt to obtain labs as ordered at last visit. Pt denies SI/HI at this time. 01/28/2024 Depressed (ICD-10 - F32.9) Will refill Zoloft and Lamictal at this time. Pt reports that she miscarriad her baby at 11 weeks 2 weeks ago and had a D & C at that time. Pt denies SI/HI at this time. Pt rpeorts that she will be calling today for a therapy appt. 01/21/2024 Depressed (ICD-10 - F32.9) Will refill Zoloft and Lamictal at this time. Pt reports that she miscarriad her baby at 11 weeks last week and had a D & C at that time. Pt reports that she was then hospitalized as Mom was conerned for suicidal ideations; pt reports that she has been overall doing well since being home from the hospital. Pt denies SI/HI at this time. Therapy referral placed. Will refill meds at this time and see pt back in 1-2 weeks 01/01/2024 Depressed (ICD-10 - F32.9) Will refill Zoloft and Lamictal at this time. Pt reports that her moods are stable at this time At last visit, Pt is currently l8 weeks and reports that her OBGYN is ok with her continuing Lamictal and Sertraline. Pt denies SI/HI at this time. Crisis phone number provided for pt. 01/21/2024 Anxiety (ICD-10 - F41.9) Pt stopped Clonidine and PRazosin on 12/06 after finding out that she was . Pt had a miscarriage 1-2 weeks ago. Pt has been doing well without meds and will not restart at this time. 01/01/2024 Anxiety (ICD-10 - F41.9) Pt stopped Clonidine and PRazosin on 12/06 after finding out that she was . Reports that she is doing well without the med and OBGYN did not want her to take med at this time 01/28/2024 PTSD (post-traumat ic stress disorder) (ICD-10 - F43.10) Therapy referral placed at this time 11/19/2023 Anxiety (ICD-10 - F41.9) Will refill Clonidine to BID to aid anxiety symptoms. Pt reports that she has been tolerating med will. Pt agrees to monitor B/P and will need to see pt in office for next visit 11/19/2023 PTSD (post-traumat ic stress disorder) (ICD-10 - F43.10) Will refill Prazosin at this time; will need to see pt in office to obtain B/P prior to increasing dose. Therapy referral placed. Therapy will be imperative part of tx plan. 01/28/2024 Anxiety (ICD-10 - F41.9) Pt stopped Clonidine and PRazosin on 12/06 after finding out that she was . Pt had a miscarriage 2-3 weeks ago. Pt has been doing well without these meds and will not restart at this time. 01/01/2024 PTSD (post-traumat ic stress disorder) (ICD-10 - F43.10) Pt stopped medication on 12/06 and OBGYn did not want her to restart med at this time. Pt reports that she is doing well without med at this time. Therapy referral placed. Therapy will be imperative part of [place] plan. 01/21/2024 PTSD (post-traumat ic stress disorder) (ICD-10 - F43.10) Therapy referral placed at this time 11/19/2023 Other Discussed treat ment planDiscussed sleep hygiene and caffeine intakeReturn to clinic 4 weeks IN OFFICEReminded pt to obtain lasb as ordered at last visit Encouraged counselingDiscussed treatment plan; patient is agreeable and accepting of treatment plan. Patient denies further questions or concerns at this time. The Patient/Guardian asked appropriate questions, appeared to understand the answers, and decided to accept the treatment and continue being followed.The Patient/Guardian is aware of the need to contact the office or return for an earlier appointment if any problems or concerns arise. May also contact the 24-hour crisis hotline ([facility]), refer to the closest emergency room or call 911 if new symptoms arise of existing symptoms worsen; the Patient/Guardian is aware that this would apply to symptoms such as: suicidal ideation, homicidal ideation, high risk behaviors, manic symptoms, psychotic symptoms, physical symptoms, or any other symptoms that may be dangerous to self or others. 01/01/2024 Other Discussed treat ment planDiscussed sleep hygiene and caffeine intakeReturn to clinic 2 weeksEncouraged counseling; referral placed Discussed treatment plan; patient is agreeable and accepting of treatment plan. Patient denies further questions or concerns at this time. The Patient/Guardian asked appropriate questions, appeared to understand the answers, and decided to accept the treatment and continue being followed.The Patient/Guardian is aware of the need to contact the office or return for an earlier appointment if any problems or concerns arise. May also contact the 24-hour crisis hotline ([facility]), refer to the closest emergency room or call 911 if new symptoms arise of existing symptoms worsen; the Patient/Guardian is aware that this would apply to symptoms such as: suicidal ideation, homicidal ideation, high risk behaviors, manic symptoms, psychotic symptoms, physical symptoms, or any other symptoms that may be dangerous to self or others. 01/21/2024 Other Discussed treat ment planDiscussed sleep hygiene and caffeine intakeReturn to clinic 2 weeksEncouraged counseling; referral placed Discussed treatment plan; patient is agreeable and accepting of treatment plan. Patient denies further questions or concerns at this time. The Patient/Guardian asked appropriate questions, appeared to understand the answers, and decided to accept the treatment and continue being followed.The Patient/Guardian is aware of the need to contact the office or return for an earlier appointment if any problems or concerns arise. May also contact the 24-hour crisis hotline ([facility]), refer to the closest emergency room or call 911 if new symptoms arise of existing symptoms worsen; the Patient/Guardian is aware that this would apply to symptoms such as: suicidal ideation, homicidal ideation, high risk behaviors, manic symptoms, psychotic symptoms, physical symptoms, or any other symptoms that may be dangerous to self or others. 01/28/2024 Other Discussed treat ment planDiscussed sleep hygiene and caffeine intakeReturn to clinic 2 weeksEncouraged counselingDiscussed treatment plan; patient is agreeable and accepting of treatment plan. Patient denies further questions or concerns at this time. The Patient/Guardian asked appropriate questions, appeared to understand the answers, and decided to accept the treatment and continue being followed.The Patient/Guardian is aware of the need to contact the office or return for an earlier appointment if any problems or concerns arise. May also contact the 24-hour crisis hotline ([facility]), refer to the closest emergency room or call 911 if new symptoms arise of existing symptoms worsen; the Patient/Guardian is aware that this would apply to symptoms such as: suicidal ideation, homicidal ideation, high risk behaviors, manic symptoms, psychotic symptoms, physical symptoms, or any other symptoms that may be dangerous to self or others. Plan Of Treatment No Information Insurance Providers Payer Name Payer Address Payer Phone Subscriber Number Group Number Insured Name Patient Relationship to Insured Coverage Start Date Coverage End Date Hello Agent [address] [place] [address] [id number] Tia Vazquez Self - patient is the insured [address] [address] [id number] Tia Vazquez Self - patient is the insured 0 3 [employer] [address] [place] [address] [id number] Tia Vazquez Self - patient is the insured 3 Medical (General) History Medical History History ICD Code Acid Reflux Asthma Vocal Cord Dysfunction Syndrome Migraines seeing neurology for possible seizures Surgical History Surgery Date(Month/Year) cholecystectomy 2019 Hospitalization History Reason Date(Month/Year) overdose-[place] 08/2021
--- OUTSIDE RECORDS SUMMARY | 2024-10-05 16:42 | XMS_ITS | Referral Summary ---
Author Organization [facility] s Address [address] [place] [address] Care Team Providers Care Shot Blast Equipment Operator Name Role Phone Cathleen Noriega Primary Care Provider [phone] Encounters Date Type Department Care Team Description 07/28/2024 Orders Only [facility] Pulmonology [address] [place] [address] [place] [phone] Linda Gonzalez MD 07/21/2024 Telephone [facility] Pulmonology [address] [place] [address] [place] [phone] Angie Fuentes MA Prior Auth (AirSupra) 07/18/2024 11:00 AM CHARGE MASTER SPECIALIST Office Visit [facility] Pulmonology [address] [place] [address] [place] [phone] Linda Gonzalez MD Vocal cord dysfunction (Primary Dx); SOB (shortness of breath) 07/14/2024 9:00 AM CHARGE MASTER SPECIALIST - 07/14/2024 11:59 PM CHARGE MASTER SPECIALIST Hospital Encounter [facility] Respiratory Therapy [address] [place] [address] SOB (shortness of breath); Asthma, unspecified asthma severity, unspecified whether complicated, unspecified whether persistent; Vocal cord dysfunction Discharge Disposition: Discharge to home or self care 07/05/2024 9:30 AM CDT Office Visit [facility] Pulmonology [address] [place] [address] [place] [phone] Linda Gonzalez MD Vocal cord dysfunction (Primary Dx); SOB (shortness of breath); Asthma, unspecified asthma severity, unspecified whether complicated, unspecified whether persistent from Last 3 Months Allergies Active Allergy Reactions Criticality Noted Date Comments Adhesive Rash,Unknown Medium 08/19/2023 Allerg Xt,D.Farinae-D.Pteronys Unknown 08/19 Coconut Flavor Anaphylaxis,Unknown High 08/19/2023 Latex Anaphylaxis,Unknown High 08/19/2023 Venom-Honey Bee Anaphylaxis,Unknown High 08/19/2023 Wasp Venom Anaphylaxis,Unknown High 08/19/2023 Medications albuterol 2.5 mg /3 mL (0.083 %) nebulizer solution Inhale 3 mL (2.5 mg total) every 4 (four) hours as needed Active albuterol HFA (PROVENTIL HFA,VENTOLIN HFA,PROAIR HFA) 90 mcg/actuation inhaler Inhale 2 puffs every 4 (four) hours as needed Active gabapentin (NEURONTIN) 100 mg capsule 03/16/2024 Active lamoTRIgine (LaMICtal) 25 mg tablet Take 2 tablets (50 mg total) by mouth 2 (two) times a day 03/25/2024 Active Active Problems Problem Noted Date Diagnosed Date Asthma 07/14/2024 Social History Tobacco Use Types Packs/Day Years Used Date Smoking Tobacco: Never Comments Unknown Sex and Gender Information Value Date Recorded Sex Assigned at Not on file Legal Sex Female 2:12 PM CDT Gender Identity Not on file Sexual Orientation Not on file Last Filed Vital Signs Vital Sign Reading Time Taken Comments Blood Pressure 110/79 07/18/2024 10:40 AM CHARGE MASTER SPECIALIST Pulse 72 07/18/2024 10:40 AM CHARGE MASTER SPECIALIST Temperature 35.8 ??C (96.4 ??F) 07/18/2024 10:[address] Respiratory Rate 18 07/18/2024 10:40 AM CHARGE MASTER SPECIALIST Oxygen Saturation 98% 07/18/2024 10:40 AM CHARGE MASTER SPECIALIST Inhaled Oxygen Concentration - - Weight 138.3 kg (305 lb) 07/18/2024 10:40 AM CHARGE MASTER SPECIALIST Height 158.8 cm (5' 2.52 ) 07/18/2024 10:[address] Body Mass Index 54.86 07/18/2024 10:40 AM CHARGE MASTER SPECIALIST Plan of Treatment Not on file Procedures Procedure Name Priority Date/Time Associated Diagnosis Comments PULMONARY FUNCTION TEST (PFT) Routine 07/14/2024 10:12 AM CHARGE MASTER SPECIALIST SOB (shortness of breath) Asthma, unspecified asthma severity, unspecified whether complicated, unspecified whether persistent Vocal cord dysfunction from Last 3 Months Results * (ABNORMAL) Pulmonary Function Test - (07/14/2024 10:12 AM CHARGE MASTER SPECIALIST) FVC PRE 4.36(A) 2.84 - 4.29 L [facility] FEV1 PRE 3.60 2.46 - 3.65 L [facility] [id number] 82.56 75.11 - 95.83 % [facility] QJA65-24% PRE 3.71 2.38 - 5.02 L/s [facility] PEF PRE 4.45(A) 5.32 - 8.28 L/s [facility] DLCOc SB 24.08 20.89 - 32.36 ml/(min*mm Hg) [facility] DLCO/VA PRE 4.73 4.02 - 7.54 ml/(min*mm Hg*L) [facility] VA 5.09(A) 4.45 - 4.45 L [facility] TLC PRE 5.54 3.62 - 5.59 L [facility] VC PRE 4.40(A) 2.77 - 4.15 L [facility] IC PRE 3.39(A) 2.16 - 2.16 L [facility] FRC PL PRE 2.15 1.73 - 3.38 L [facility] ERV PRE 1.01(A) 1.30 - 1.30 L [facility] RV PRE 1.14 0.67 - 1.83 L [facility] VTG 2.44 L [facility] RAW PRE 2.80(A) 3.06 - 3.06 cmH2O*s/L [facility] Anatomical Region Laterality Modality PFT 07/14/2024 9:40 AM CHARGE MASTER SPECIALIST Narrative 07/14/2024 11:49 AM CHARGE MASTER SPECIALIST Spirometry shows no obstruction. ??Patient's inspiratory flow loop did not peak. Lung volumes with no restrictive lung disease. No diffusion impairment. Normal inspiratory flow loop. Overall normal PFTs Electronically signed by Linda Gonzalez MD ?? us Linda Gonzalez MD PFT ORDERABLES Final Res ult from Last 3 Months Insurance [facility] Care Teams Shot Blast Equipment Operator Relationship Specialty Start Date End Date Cathleen Noriega PA [address] [place] [id number] PCP - General Physician Regional Vice President Surgical Sales 07/05/24
--- OUTSIDE RECORDS SUMMARY | 2024-10-05 16:42 | XMS_ITS | CONTINUITY OF CARE DOCUMENT ---
Author Name cleemnt sarahbrissa Address Unknown Organization [facility] Address [address] [address] [place] [address] Phone [phone] Care Team Providers Care Tool Maker Apprentice Name Role Phone Manny GRULLON, Charles Unavailable RUDDY RAGLAND Unavailable [phone] RUDDY RAGLAND Unavailable [phone] INSURANCE PROVIDERS Payer name Policy type / Coverage type Prior [place] [employer] [place] party ID [facility] (MEDICAID) Medicaid [id number]
--- OUTSIDE RECORDS SUMMARY | 2024-10-05 16:42 | XMS_ITS | Encounter Summary ---
Author Organization [facility] Address [address] [place] [address]. [place] [address] [place] [address] Care Team Providers Care Hairmasters Manager Name Role Phone Florencia Navarrete PA-C Primary Care Provider + Cathleen Noriega PA-C Primary Care Provider [phone] Encounter Details Date Type Department Care Team (Late st Contact Info) Description 12/01/2023 MyChart Message Enc [facility] Multispecialty Care - [address], [address] [place] [phone] Natalie Mo MD [address] [place], [place] [phone] Work note Social History Tobacco Use Types Packs/Day Years Used Date Smoking Tobacco: Never Passive Smoke Exposure: Current Smokeless Tobacco: Never Alcohol Use Standard Drinks/Week Comments Not Currently 0 (1 standard drink = 0.6 oz pur e alcohol) PHQ-2 Answer Date Recorded Patient Health Questionnaire-2 Score 0 12/01/2023 Comments Unknown Sex and Gender Information Value Date Recorded Sex Assigned at Female 08/17/2023 12:07 PM BRANCH SALES MANAGER Legal Sex Female 6:07 PM BRANCH SALES MANAGER Gender Identity Female 08/17/2023 12:07 PM BRANCH SALES MANAGER Sexual Orientation Not on file documented as of this encounter Plan of Treatment Upcoming Encounters Date Type Department Care Team (Late st Contact Info) Description 11/08/2024 1:20 PM BRANCH SALES MANAGER Office Visit [facility] Medical [facility] - [facility] [address] [facility], [address] [place] [address] Natalie Mo MD [address] [place] [address] documented as of this encounter Visit Diagnoses Not on filedocumented in this encounter Care Teams Hairmasters Manager Relationship Specialty Start Date End Date Florencia Navarrete PA-C [facility] [place] [address] PCP - General PHYSICIAN LEGAL DOCUMENT ASSISTANT 08/14/23 01/14/24 Cathleen Noriega PA-C [address] [place] [phone] PCP - General PHYSICIAN LEGAL DOCUMENT ASSISTANT 01/15/24 documented as of this encounter
--- OUTSIDE RECORDS SUMMARY | 2024-10-05 16:42 | XMS_ITS | Clinical Summary ---
Author Organization [facility] Address [address] [place] [address] Care Team Providers Care Nail Professional Name Role Phone Cathleen Noriega Primary Care Provider [phone] Allergies Active Allergy Reactions Criticality Noted Date [...] Problem Noted Date Diagnosed Date Asthma 07/14/2024 Encounters Date Type Department Care Team Description 07/28/2024 Orders Only [facility] Pulmonology [address] [place] [phone] Linda Gonzalez MD 07/21/2024 Telephone [facility] Pulmonology [address] [place] [address] [place] [phone] Angie Fuentes MA Prior Auth (AirSupra) 07/18/2024 11:00 AM SUPERVISOR CD AREA Office Visit [facility] Pulmonology [address] [place] [address] [place] [phone] Linda Gonzalez MD Vocal cord dysfunction (Primary Dx); SOB (shortness of breath) 07/14/2024 9:00 AM SUPERVISOR CD AREA - 07/14/2024 11:59 PM SUPERVISOR CD AREA Hospital Encounter [facility] Respiratory Therapy [address] [place] [phone] SOB (shortness of breath); Asthma, unspecified asthma severity, unspecified whether complicated, unspecified whether persistent; Vocal cord dysfunction Discharge Disposition: Discharge to home or self care 07/05/2024 9:30 AM CDT Office Visit [facility] Pulmonology [address] [place] [address] [place] [phone] Linda Gonzalez MD Vocal cord dysfunction (Primary Dx); SOB (shortness of breath); Asthma, unspecified asthma severity, unspecified whether complicated, unspecified whether persistent from Last 3 Months Social History Tobacco Use Types Packs/Day Years Used Date Smoking Tobacco: Never Comments Unknown Sex and Gender Information Value Date Recorded Sex Assigned at Not on file Legal Sex Female 2:12 PM CDT Gender Identity Not on file Sexual Orientation Not on file Obstetrics History Last Filed Vital Signs Vital Sign Reading Time Taken Comments Blood Pressure 110/79 07/18/2024 10:40 AM SUPERVISOR CD AREA Pulse 72 07/18/2024 10:40 AM SUPERVISOR CD AREA Temperature 35.8 ??C (96.4 ??F) 07/18/2024 10:[address] Respiratory Rate 18 07/18/2024 10:40 AM SUPERVISOR CD AREA Oxygen Saturation 98% 07/18/2024 10:40 AM SUPERVISOR CD AREA Inhaled Oxygen Concentration - - Weight 138.3 kg (305 lb) 07/18/2024 10:40 AM SUPERVISOR CD AREA Height 158.8 cm (5' 2.52 ) 07/18/2024 10:[address] Body Mass Index 54.86 07/18/2024 10:40 AM SUPERVISOR CD AREA Plan of Treatment Health Maintenance Due Date Last Done Comments Cervical Cancer Screening 1999 Depression Screening 1999 Hepatitis C Screening 1999 Pneumococcal vaccine <65 (1 of 2 - PCV) 2005 DTaP/Tdap/Td Vaccine (1 - Tdap) 2010 Varicella Vaccines (1 of 2 - 13+ 2-dose series) 2011 HPV Vaccines (1 - 3-dose series) 2014 Hepatitis B Screening 2017 Regular Well Visit/Exam 18-64 2017 Influenza Vaccine (#1) 2024 Procedures Procedure Name Priority Date/Time Associated Diagnosis Comments PULMONARY FUNCTION TEST (PFT) Routine 07/14/2024 10:12 AM SUPERVISOR CD AREA SOB (shortness of breath) Asthma, unspecified asthma severity, unspecified whether complicated, unspecified whether persistent Vocal cord dysfunction from Last 3 Months Results * (ABNORMAL) Pulmonary Function Test - (07/14/2024 10:12 AM SUPERVISOR CD AREA) FVC PRE 4.36(A) 2.84 - 4.29 L [facility] FEV1 PRE 3.60 2.46 - 3.65 L [facility] [id number] 82.56 75.11 - 95.83 % [facility] ZTD50-12% PRE 3.71 2.38 - 5.02 L/s [facility] PEF PRE 4.45(A) 5.32 - 8.28 L/s [facility] DLCOc SB 24.08 20.89 - 32.36 ml/(min*mm Hg) [facility] DLCO/VA PRE 4.73 4.02 - 7.54 ml/(min*mm Hg*L) [facility] VA 5.09(A) 4.45 - 4.45 L [facility] TLC PRE 5.54 3.62 - 5.59 L [facility] VC PRE 4.40(A) 2.77 - 4.15 L [facility] IC PRE 3.39(A) 2.16 - 2.16 L [facility] FRC PL PRE 2.15 1.73 - 3.38 L [facility] ERV PRE 1.01(A) 1.30 - 1.30 L [facility] RV PRE 1.14 0.67 - 1.83 L [facility] VTG 2.44 L [facility] RAW PRE 2.80(A) 3.06 - 3.06 cmH2O*s/L [facility] Anatomical Region Laterality Modality PFT 07/14/2024 9:40 AM SUPERVISOR CD AREA Narrative 07/14/2024 11:49 AM SUPERVISOR CD AREA Spirometry shows no obstruction. ??Patient's inspiratory flow loop did not peak. Lung volumes with no restrictive lung disease. No diffusion impairment. Normal inspiratory flow loop. Overall normal PFTs Electronically signed by Linda Gonzalez MD ?? us Linda Gonzalez MD PFT ORDERABLES Final Res ult from Last 3 Months Insurance [facility] Care Teams Nail Professional Relationship Specialty Start Date End Date Cathleen Noriega PA [address] [place] [phone] PCP - General Physician French Pastry Cook 07/05/24
--- OUTSIDE RECORDS SUMMARY | 2024-10-05 16:42 | XMS_ITS | Encounter Summary ---
Author Organization [facility] Address [address] [place] [address]. [place] [address] [place] [address] Care Team Providers Care Rn Digestive Name Role Phone Florencia Navarrete PA-C Primary Care Provider + Cathleen Noriega PA-C Primary Care Provider [phone] Encounter Details Date Type Department Care Team (Late st Contact Info) Description 11/20/2023 MyChart Message Enc [facility] Multispecialty Care - [address] [place] [address], [address] [place] [phone] Natalie Mo MD [address] [place], [place] [phone] Testing Social History Tobacco Use Types Packs/Day Years Used Date Smoking Tobacco: Never Passive Smoke Exposure: Current Smokeless Tobacco: Never Alcohol Use Standard Drinks/Week Comments Not Currently 0 (1 standard drink = 0.6 oz pur e alcohol) Comments Unknown Sex and Gender Information Value Date Recorded Sex Assigned at Female 08/17/2023 12:07 PM DUST BOX TENDER Legal Sex Female 6:07 PM DUST BOX TENDER Gender Identity Female 08/17/2023 12:07 PM DUST BOX TENDER Sexual Orientation Not on file documented as of this encounter Plan of Treatment Upcoming Encounters Date Type Department Care Team (Late st Contact Info) Description 11/08/2024 1:20 PM DUST BOX TENDER Office Visit [facility] Multispecialty Care - [facility] [address] [facility], [address] [place] [phone] Natalie Mo MD [address] [place] [address] documented as of this encounter Visit Diagnoses Not on filedocumented in this encounter Care Teams Rn Digestive Relationship Specialty Start Date End Date Florencia Navarrete PA-C [address] [place] [phone] PCP - General PHYSICIAN VENDOR MANAGEMENT SPECIALIST 08/14/23 01/14/24 Cathleen Noriega PA-C [address] [place] [phone] PCP - General PHYSICIAN VENDOR MANAGEMENT SPECIALIST 01/15/24 documented as of this encounter
--- OUTSIDE RECORDS SUMMARY | 2024-10-05 16:42 | XMS_ITS | Clinical Summary ---
Author Organization [facility] Address [address] [place] [address] Care Team Providers Care Pharmacist Apprentice Name Role Phone Cathleen Noriega PA-C Primary Care Provider Source Comments [facility],non-owned Affiliates and Associated Physician Practices is amultiple site organization consisting of ambulatory clinics and hospital sitesin [place], [place], [place] and [place]. This disclosure is being madepursuant to the Care Everywhere program and may not contain all information available regarding this patient. Last updated 18.[facility] Allergies Active Allergy Reactions Criticality Noted Date Comments Adhesive Sensitivity Rash,Unknown Medium 08/19/2023 Bee Venom Unknown 09/06/2024 Coconut Flavor Anaphylaxis,Unknown High 08/19/2023 Dust Mite Extract Unknown 09/06/2024 Flavoring Agent Urticaria Medium 08/19/2023 Latex Anaphylaxis,Unknown High 08/19/2023 [place] Flavor Rash Medium 09/06/2024 Wasp Venom Anaphylaxis,Unknown [...] tablet by mouth as needed 09/26/2024 Active Encounters Date Type Department Care Team Description 09/27/2024 2:15 PM COLD TYPE COMPOSING MACHINE OPERATOR Office Visit [facility] - ENT [address] [place] [phone] Solis Enrique MD Vocal cord dysfunction (Primary Dx) 09/06/2024 3:00 PM COLD TYPE COMPOSING MACHINE OPERATOR Office Visit [facility] - ENT [address] [place] [phone] Solis Enrique MD Vocal cord dysfunction (Primary Dx) 09/06/2024 Travel 08/23/2024 Telephone [facility] - ENT [address] [place] [phone] Solis Enrique MD Appointment 07/12/2024 Travel from Last 3 Months Social History Tobacco [...] Comments Blood Pressure 125/69 09/27/2024 2:20 PM COLD TYPE COMPOSING MACHINE OPERATOR Pulse 91 09/27/2024 2:20 PM COLD TYPE COMPOSING MACHINE OPERATOR Temperature - - Respiratory Rate - - Oxygen Saturation - - Inhaled Oxygen Concentration - - Weight 142 kg (313 lb) 09/27/2024 2:20 PM COLD TYPE COMPOSING MACHINE OPERATOR Height 157.5 cm (5' 2 ) 09/27/2024 2:20 PM COLD TYPE COMPOSING MACHINE OPERATOR Body Mass Index 57.25 09/27/2024 2:20 PM COLD TYPE COMPOSING MACHINE OPERATOR Plan of Treatment Upcoming Encounters Date Type Department Care Team (Late st Contact Info) Description 10/11/2024 10:00 AM COLD TYPE COMPOSING MACHINE OPERATOR [facility] [address] [place] [phone] Solis Enrique MD [address] [place] [address] [place] [address] Health Maintenance Due Date Last Done Comments PAP SMEAR 1999 HIV SCREENING 2014 HPV VACCINE (1 - 3-dose series) 2014 CHLAMYDIA/GONORRHEA SCREENING 2015 HEPATITIS C SCREENING 06/15/2017 DTAP/TDAP/TD VACCINES (1 - Tdap) 2018 HEPATITIS B VACCINE (1 of 3 - 19+ 3-dose series) 2018 COVID-19 VACCINE (1 - 2023-2 5 season) 2024 INFLUENZA VACCINE (#1) 2024 DEPRESSION SCREENING 09/07/2024 ZOSTER VACCINE (1 of 2) 2049 HIB VACCINE Aged Out No longer eligi ble based on patient's age to complete this topic MENINGOCOCCAL (Group B) VACCINE Aged Out No longer eligible based on patient's age to complete this topic MENINGOCOCCAL VACCINE Aged Out No magalis ratna eligible based on patient's age to complete this topic PNEUMOCOCCAL VACCINE Aged Out No long er eligible based on patient's age to complete this topic Procedures Procedure Name Priority Date/Time Associated Diagnosis Comments [place] LARYNGOSCOPY,FLEX FIBER,DIAGNOSTIC Routine 09/06/2024 5:36 PM COLD TYPE COMPOSING MACHINE OPERATOR Vocal cord dysfunction from Last 3 Months Results * MI LARYNGOSCOPY,FLEX FIBER,DIAGNOSTIC (09/06/2024 5:36 PM COLD TYPE COMPOSING MACHINE OPERATOR) Narrative Solis Enrique MD - 09/06/2024 5:36 PM COLD TYPE COMPOSING MACHINE OPERATOR Solis Enrique MD ? 09/06/2024 ??5:41 PM Procedure Note Endoscopy Type: ??Laryngoscopy without stroboscopy [id number] Endoscope: Flexible 4mm Scope Anesthesia: Lidocaine 2% [...] ORDERABLES from Last 3 Months Care Teams Pharmacist Apprentice Relationship Specialty Start Date End Date Cathleen Noriega PA-C [address] [place] [phone] PCP - General 09/06/24
--- OUTSIDE RECORDS SUMMARY | 2024-10-05 16:42 | XMS_ITS | Patient Health Summary ---
Author Organization [facility] Address [address] [facility] [place] [address] Care Team Providers Care Catering Assistant Name Role Phone Cathleen Noriega PA-C Primary Care Provider Note from [facility],non-owned Affiliates and Associated Physician Practices is amultiple site organization consisting of ambulatory clinics and hospital sitesin [place], [place], [place] and [place]. This disclosure is being madepursuant to the Care Everywhere program and may not contain all information available regarding this patient. Last updated 18.[facility] Allergies * Adhesive Sensitivity(Rash,Unknown) -Medium Criticality * Bee Venom(Unknown) * Coconut Flavor(Anaphylaxis,Unknown) -High Criticality * Dust Mite Extract(Unknown) * Flavoring Agent(Urticaria) -Medium Criticality * Latex(Anaphylaxis,Unknown) -High Criticality * [place]aca Flavor(Rash) -Medium Criticality * Wasp Venom(Anaphylaxis,Unknown) -High Criticality * Banana Cream Flavor(Unknown),Inactive Medications * Be aware that medications may not be up to date on this document. Alwaysverify current medications with the patient. * albuterol HFA (Proventil; Ventolin; Proair) 108 (90 Base) MCG/ACT inhaler Inhale 2 (two) puffs by mouth every 6 hours as needed * lamoTRIgine (LaMICtal) 25 MG tablet(Started 03/25/2024) Take 2 (two) tablets by mouth 2 times daily * hyoscyamine (Levsin) 0.125 MG IR tablet(Started 09/26/2024) Take 1 (one) tablet by mouth every 4 hours as needed * traMADol (Ultram) 50 MG tablet(Started 09/26/2024) Take 1 (one) tablet by mouth as needed Social History Tobacco Use Types Packs/Day Years [...] Comments Blood Pressure 125/69 09/27/2024 2:20 PM CUSTOMS AND BORDER PROTECTION INSPECTOR Pulse 91 09/27/2024 2:20 PM CUSTOMS AND BORDER PROTECTION INSPECTOR Temperature - - Respiratory Rate - - Oxygen Saturation - - Inhaled Oxygen Concentration - - Weight 142 kg (313 lb) 09/27/2024 2:20 PM CUSTOMS AND BORDER PROTECTION INSPECTOR Height 157.5 cm (5' 2 ) 09/27/2024 2:20 PM CUSTOMS AND BORDER PROTECTION INSPECTOR Body Mass Index 57.25 09/27/2024 2:20 PM CUSTOMS AND BORDER PROTECTION INSPECTOR Procedures * AK LARYNGOSCOPY,FLEX FIBER,DIAGNOSTIC(Performed 09/06/2024) Performed for Vocal cord dysfunction Results * AK LARYNGOSCOPY,FLEX FIBER,DIAGNOSTIC (09/06/2024 5:36 PM CUSTOMS AND BORDER PROTECTION INSPECTOR) Narrative Solis Enrique MD - 09/06/2024 5:36 PM CUSTOMS AND BORDER PROTECTION INSPECTOR Solis Enrique MD ? 09/06/2024 ??5:41 PM Procedure Note Endoscopy Type: ??Laryngoscopy without stroboscopy [id number] Endoscope: Flexible 4mm Scope Anesthesia: Lidocaine 2% [...] Solis Enrique MD PROCEDURE/MINOR SURG ICAL ORDERABLES Care Teams Catering Assistant Relationship Specialty Start Date End Date Cathleen Noriega PA-C [address] [place] [phone] PCP - General 09/06/24
--- OUTSIDE RECORDS SUMMARY | 2024-10-05 16:42 | XMS_ITS ---
Author Organization [facility] Address [address] [place] [address] Care Team Providers Care Vehicle Washer Name Role Phone Nya Schreiber Unavailable [phone] Allergies Allergen (clinical drug ingredient) Drug/Non Drug Allergy documented on EMR Reaction Allergy Type Onset Date Status Coconut Flavor Unknown Drug Allergy Ac tive Wasp Venom Unknown Drug Allergy Active Adhesive Unknown Allergy Active Bee Sting Unknown Allergy Active Dust Mites Unknown Allergy Active Latex Latex Unknown Allergy Active Hadar Passion Fruit OS Unknown Drug Allergy Active REASON FOR VISIT 1 week f/u Medications Medication SIG (Take, Route, Frequency, Duration) Notes Start Date End Date Status Sertraline HCl 200 MG 1 capsule Orally O nce a day for 30 days Active EPINEPHrine (Anaphylaxis) Active lamoTRIgine 25 MG 2 tablets Orally raissa ly for 30 days Active Albuterol Active Omeprazole 10 MG 1 capsule 30 minutes before morning meal Orally Once a day Active Active Social History Sex Assigned At : Social History Observation Description Sex Assigned At Female Encounters Encounter Location Date Provider Diagnosis [address] [address] 01/28/2024 Nya Schreiber Depressed F32.9 ; PTSD (post-traumatic stress disorder) F43.10 and Anxiety F41.9 Assessments Encounter Date Diagnosis (ICD Code) Assessment Notes Treatment Notes Treatment Clinical Notes Section Notes 01/28/2024 Depressed (ICD-10 - F32.9) Will refill Zoloft and Lamictal at this time. Pt reports that she miscarriad her baby at 11 weeks 2 weeks ago and had a D & C at that time. Pt denies SI/HI at this time. Pt rpeorts that she will be calling today for a therapy appt. 01/28/2024 PTSD (post-traumat ic stress disorder) (ICD-10 - F43.10) Therapy referral placed at this time 01/28/2024 Anxiety (ICD-10 - F41.9) Pt stopped Clonidine and PRazosin on 12/06 after finding out that she was . Pt had a miscarriage 2-3 weeks ago. Pt has been doing well without these meds and will not restart at this time. 01/28/2024 Other Discussed treat ment planDiscussed sleep [...] May also contact the 24-hour crisis hotline ([facility]), refer to the closest emergency room or call 911 if new symptoms arise of existing symptoms worsen; the Patient/Guardian is aware that this would apply to symptoms such as: suicidal ideation, homicidal ideation, high risk behaviors, manic symptoms, psychotic symptoms, physical symptoms, or any other symptoms that may be dangerous to self or others. Plan Of Treatment Medication Medication Name Sig Start Date Stop Date Notes Sertraline HCl 200 MG 1 capsule Orally O nce a day for 30 days lamoTRIgine 25 MG 2 tablets Orally daily for 30 days Treatment Notes Assessment Notes Depressed Will refill Zoloft a nd Lamictal at this time. Pt reports that she miscarriad her baby at 11 weeks 2 weeks ago and had a D & C at that time. Pt denies SI/HI at this time. Pt rpeorts that she will be calling today for a therapy appt. PTSD (post-traumatic stress disorder) Th erapy referral placed at this time Anxiety Pt stopped Clonidine and PRazosin on 12/06 after finding out that she was . Pt had a miscarriage 2-3 weeks ago. Pt has been doing well without these meds and will not restart at this time. Other Discussed treatment planDiscussed sleep hygiene and caffeine intakeReturn to [...] may be dangerous to self or others. Next Appt Details Follow Up: 2 Weeks, Reason: Medication management - can be telehealth appt. Progress Notes * Tia URIARTEDOB:2000 (23 yo F)Acc No.[id number]:01/28/2024 Patient:?KALANI Tia Provider:?NYA SCHREIBER, MSN, WARPING MACHINE OPERATOR-C, PMHNP -BC :2000???Age:23 Y???Sex:Female D ate:01/28/2024 Address:[address] [place] [address] Subjective: * Chief Complaints: * ???1 week f/u * HPI: ???Screening:?U[place] Suicide Severity Rating Scale (LF)?Do you want to initiate with?Screener form,?1. Wish to be : Have you wished you were or wished you could go to sleep and not wake up??No,?2. Suicidal Thoughts: Have you actually had any thoughts of killing yourself??No,?6. Suicide Behaviour: Have you ever done anything,started to do anything, or prepared to end your life??No,?Interpretation:?Low Risk.?CSSRS Interpretation and Follow Up Plan:?CSSRS Interpretation and Follow Up Plan. ???Depression Screening:?PHQ-9?Little interest or pleasure in doing things?Several days,?Feeling down, depressed, or hopeless?Several days,?Trouble falling or staying asleep, or sleeping too much?Nearly every day,?Feeling tired or having little energy Several days,?Poor appetite or overeating?Several days,?Feeling bad about yourself or that you are a failure, or have let yourself or your family down?Several days,?Trouble concentrating on things, such as reading the newspaper or watching television?Not at all,?Moving or speaking so slowly that other people could have noticed; or the opposite, being so fidgety or restless that you have been moving around a lot more than usual?Several days,?Thoughts that you would be better off or of hurting yourself in some way?Not at all,?Total Score?9,?Interpretation?Mild Depression.?Intervention?Depression Screening Findings?Positive,?Follow-Up for Depression?No Referral necessary, patient involved in behavioral health treatment ..?Constitutional:?This session was completed telephonically/zoom due to COVID-19 emergency, with client/parental/guardian consent. Chief Complaint: Follow-up medications? HPI: 23-year-old female presents to clinic via telephone to follow-up on medications. Patient was last seen on 01/21/2024 at which time Sertraline and Prazosin were refilled. Patient was also referred to therapy at that time. pHQ-9 score was 11 at that time.? Pt had recent miscarriage and had D&C completed a few weeks ago.? 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 Pt reports that they filled her position while she has been out and she is not sure if she will have a job or not when she goes back.? Patient reports I guess things are ok; I still break down from time to time but I am as good as I am going to be for a while. I didn't start therapy; they did call me yesterday and gave me the number to call for counseling. I was going to call them today to get that set up. PHQ-9 score is 9 today.? Previous Diagnosis: Depression, anxiety, PTSD? Goals: Possibly finding a new job, get into counseling, and stay positive Coping strategies: Talking to mother, going on walks, listening to music, going and taking a hot shower or bath? Social Activities/Hobbies: Spending time with family, helping Mom build a trampoline and shopping with Mom Drugs/ETOH/nicotine: Denies? Therapy: Denies but is calling today for an appt? Medications effective: Yes Medication Adherence: Taking as prescribed Side effects: Denies? Past medications: Trileptal, Tenex, Depakote, Methylphenidate Sleep: still pretty cruddy ? Appetite: not really but I don't really eat when I am upset and stuff ? Depression: 5 out of 10? Anxiety/Panic attacks: 3 out of 10? Anger/Irritability: Irritability at times? Hallucinations/Paranoia: Denies? Current Suicidal ideation: Denies? Homicidal ideation: Denies? Medical concerns: Acid Reflux, Asthma, Vocal Cord Dysfunction Syndrome, Migraines, seeing neurology for possible seizures. Hospitalizations/medication changes by other providers: Denies. * ROS:?*PSYCH ROS2:?Elevated mood symptoms?Denies.?Admits?mood swings.?Thoughts of self harm?Denies.?Denies?Homicidal thoughts.?Hyperactivity? Denies.?Inattention?Admits.?Behavior concerns?Denies.?Disruptive behavior? Denies.?Obsessive behavior?Denies.?Compulsive behavior? Denies.?Paranoia?Denies.?Difficulty concentrating?Admits.?Admits?Anxiety.?Denies?Auditory/visual hallucinations.?Denies?Delusions.?Admits?Depressed mood. Admits?Difficulty sleeping.?Denies?Eating disorder.?Denies?Loss of appetite.?Denies?Stressors.?Denies?Substance abuse.?Denies?Suicidal thoughts.? * Medical History:? * Surgical History:?cholecyste ctomy 2019 * Hospitalization/Major Diagno stic Procedure:?overdose-[place] 08/2021 * Family History:?Father: anne miles?Mother: alive.?2 brother(s) , 2 sister(s) - healthy. .? Pt is adopted; unknown medical/psych family history. * Social History:?Primary Social History:?Living Arrangement?Living Arrangement:?Independent Living,?Is this a supportive environment??Yes.?Alcohol Use?Alcohol Use Frequency:?Monthly or less socially. 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 * Medications:?TakingPrenatal EPINEPHrine (Anaphylaxis) Albuterol Omeprazole 10 MG Capsule Delayed Release 1 capsule 30 minutes before morning meal Orally Once a day Sertraline HCl 200 MG Capsule 1 capsule Orally Once a day lamoTRIgine 25 MG Tablet 2 tablets Orally daily Medication List reviewed and reconciled with the patientTaking Taking EPINEPHrine (Anaphylaxis) Taking Albuterol Taking Omeprazole 10 MG Capsule Delayed Release 1 capsule 30 minutes before morning meal Orally Once a day Taking Sertraline HCl 200 MG Capsule 1 capsule Orally Once a day Taking lamoTRIgine 25 MG Tablet 2 tablets Orally daily Medication List reviewed and reconciled with the patient * Allergies:?LatexBee StingWas p VenomDust MitesMango Passion Fruit OSCoconut FlavorAdhesiveno[Allergies Verified] Objective: * Vitals:?Initials: jk, LMP: m isscarriage 3 weeks ago. Denies any physical symptoms; unable to obtain vital signs due to telephone encounter. * Examination: ???General Examination: ?PSYCH:?full range of affect/positive mood,?speech clear, no auditory or visual hallucinations, alert, oriented x4, cognitive function intact, judgement and insight good, thought process logical, goal directed, denies any current thoughts/plans of suidicial/homicidal ideation, No evidence of EPS or tardive dyskinesia.? Assessment: * Assessment: 1.?Depressed - F32.9 (Primar y)?2.?PTSD (post-traumatic stress disorder) - F43.10?3.?Anxiety - F41.9? Plan: * Treatment: 2.?PTSD (post-traumatic stre ss disorder)? Notes: Therapy referral placed at this time ?? 3.?Anxiety? Notes: Pt stopped Clonidine and PRazosin on 12/06 after finding out that she was . Pt had a miscarriage 2-3 weeks ago. Pt has been doing well without these meds and will not restart at this time. ?? 4.?Others? Notes: Discussed treatment planDiscussed sleep hygiene and caffeine intakeReturn to [...] may be dangerous to self or others. ?? * Procedure Codes:? * Follow Up:?2 Weeks (Reason: Medication management - can be telehealth appt.) * * Sign off status: Completed true * Provider:?NYA SCHREIBER, MSN, WARPING MACHINE OPERATOR-C, PMHNP-BC Date:?01/28/2024 Generated for Austin tanner/Jarrell/Clarasmitting on:?10/05/2024 04:42 PM MARKETING EDUCATION TEACHER History and Physical Notes * HPI (History of Present Illness) Category Sub-Category Detail Notes Category Not es Depression Screening PHQ-9 Little inte rest or pleasure in doing things: Several days Feeling down, depressed, or hopeless: Se veral days Trouble falling or staying asleep, or sl eeping too much: Nearly every day Feeling tired or having little energy: S everal days Poor appetite or overeating: Several day s Feeling bad about yourself o r that you are a failure, or have let yourself or your family down: Several days Trouble concentrating on thi ngs, such as reading the newspaper or watching television: Not at all Moving or speaking so slowly that other people could have noticed; or the opposite, being so fidgety or restless that you have been moving around a lot more than usual: Several days Thoughts that you would be b [place] off or of hurting yourself in some way: Not at all Total Score: 9 Interpretation: Mild Depression Intervention Depression Screening Findings: P ositive Follow-Up for Depression: No Referral necessary, patient involved in behavioral health treatment . Constitutional This session was completed telephonically/zoom due to COVID-19 emergency, with client/parental/guardian consent. Chief Complaint: Follow-up medications HPI: 23-year-old female presents to clinic via telephone to follow-up on medications. Patient was last seen on 01/21/2024 at which time Sertraline and Prazosin were refilled. Patient was also referred to therapy at that time. pHQ-9 score was 11 at that time. Pt had recent miscarriage and had D&C completed a few weeks ago. 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 Pt reports that they filled her position while she has been out and she is not sure if she will have a job or not when she goes back. Patient reports I guess things are ok; I still break down from time to time but I am as good as I am going to be for a while. I didn't start therapy; they did call me yesterday and gave me the number to call for counseling. I was going to call them today to get that set up. PHQ-9 score is 9 today. Previous Diagnosis: Depression, anxiety, PTSD Goals: Possibly finding a new job, get into counseling, and stay positive Coping strategies: Talking to mother, going on walks, listening to music, going and taking a hot shower or bath Social Activities/Hobbies: Spending time with family, helping Mom build a trampoline and shopping with Mom Drugs/ETOH/nicotine: Denies Therapy: Denies but is calling today for an appt Medications effective: Yes Medication Adherence: Taking as prescribed Side effects: Denies Past medications: Trileptal, Tenex, Depakote, Methylphenidate Sleep: still pretty cruddy Appetite: not really but I don't really eat when I am upset and stuff Depression: 5 out of 10 Anxiety/Panic attacks: 3 out of 10 Anger/Irritability: Irritability at times Hallucinations/Paranoia: Denies Current Suicidal ideation: Denies Homicidal ideation: Denies Medical concerns: Acid Reflux, Asthma, Vocal Cord Dysfunction Syndrome, Migraines, seeing neurology for possible seizures. Hospitalizations/medication changes by other providers: Denies Screening [place] Suicide Severity Rating Scale (LF) Do you want to initiate with: Screener form ?1. Wish to be : Have yo u wished you were or wished you could go to sleep and not wake up?: No ?2. Suicidal Thoughts: Have you actually had any thoughts of killing yourself?: No ?6. Suicide Behaviour: Have you ever done anything,started to do anything, or prepared to end your life?: No ?Interpretation:: Low Risk Examination Category Sub-Category Detail Notes Category Not es General Examination GENERAL APPEARANCE: PSYCH: full range of affect /positive mood, speech clear, no auditory or visual hallucinations, alert, oriented x4, cognitive function intact, judgement and insight good, thought process logical, goal directed, denies any current thoughts/plans of suidicial/homicidal ideation, No evidence of EPS or tardive dyskinesia
[2024-10-05 16:52] VITALS: BP 142/100; PULSE 98; RESP 16; TEMP 36.5; O2SAT 100
--- NOTE | 2024-10-05 17:02 | ED.NEUROSD ---
HPI - Neuro Symptoms/Deficit General Chief Complaint: Neuro Symptoms/Deficit Stated Complaint: stroke symptoms since waking up this am Time Seen by Provider: 10/05/24 17:18 Focused HPI: 24-year-old female with history of seizure disorder on Lamictal presents to the emergency department with mother at bedside for facial weakness and numbness since this morning. Patient went to bed last night around 11:00 p.m. without symptoms and woke up this morning at 8:00 a.m. with numbness to the left side of her face and inability to smile with left-sided facial droop. Patient has no vision changes, arm or leg weakness or numbness, rashes, insect or tick bites. No fevers, head injury or trauma. GENERAL: Well-appearing, well-nourished, and in no acute distress. HEAD: Normocephalic, atraumatic. CHEST: Clear to auscultation. ?No respiratory distress. HEART: Regular rate and rhythm.? NEURO: ?Alert and oriented x3. Decreased sensation in V1 through V3 distribution, flattened left-sided nasal labial fold, patient has decreased upward and downward deviation of the left eyebrow. Strength 5/5 in BUE and BLE. Sensation intact in extremities. Normal finger to nose. No pronator drift. Patient screened in triage and initial orders placed.? ?Additional care and disposition to be based upon?diagnostic testing and treatment. History of Present Illness HPI Narrative: Agree with the triage note. Related Data Home Medications ?Medication ?Instructions ?Recorded ?Confirmed ?Last Taken ?Type albuterol sulfate 2.5 mg/3 mL See Rx Instructions .Route 05/20/22 09/02/24 Unknown History (0.083 %) solution for nebulization .COMPLEX PRN sob albuterol sulfate 90 mcg/actuation See Rx Instructions .Route 05/20/22 09/02/24 Unknown History aerosol inhaler .COMPLEX PRN sob lamotrigine 100 mg tablet 100 mg PO DAILY 09/25/23 09/02/24 Unknown History Allergies Allergy/AdvReac Type Severity Reaction Status Date / Time coconut Allergy Severe Anaphylaxis Verified 09/02/24 12:04 latex Allergy Intermediate Rash Verified 09/02/24 12:04 ac Allergy Intermediate Hives Verified 09/02/24 12:04 bee venom protein (honey Allergy Anaphylaxis Verified 12/27/24 12:04 bee) (bees) Review of Systems Review of Systems: All systems reviewed & are unremarkable except as noted in HPI and below PMFSH Past Medical History Medical History ADHD (attention deficit hyperactivity disorder) Anxiety and depression Vocal cord dysfunction Asthma Surgical History Surgical History No significant past surgical history Family History Family History Mother Hypertension Grandparent Hypertension Social History Social History Smoking status: Never smoker Second hand tobacco smoke exposure: Yes Alcohol intake: current Substance use: never Living arrangements: with family Occupation/Education: student Gender identity (if verbalized by the patient): Female Spiritual care concerns: No Exam Narrative: GENERAL: Well-appearing, well-nourished, and in no acute distress. HEAD: Normocephalic, atraumatic. EYES: PERRLA and EOMI. ENT: Nares clear, no rhinorrhea or epistaxis. Mucous membranes moist. Bilateral TMs are mann nonbulging, normal canals, no rashes NECK: Supple. CHEST: Clear to auscultation. No respiratory distress. HEART: Regular rate and rhythm. No murmur heard. Normal peripheral pulses. ABDOMEN: Soft, nontender, nondistended, normal active bowel sounds. EXTREMITIES: Normal range of motion. No edema. SKIN: Warm, dry, no rash. NEURO: Alert and oriented x3. Flattened left nasal labial fold, facial droop to the left, decreased upward and downward deviation of the left eyebrow with no sparing of forehead movement. Otherwise cranial nerves 2-12 are intact. Strength 5/5 in BUE and BLE. Sensation intact throughout. Normal [id number]. No pronator drift. Course Vital Signs Vital signs: Vital Signs Temperature 97.7 F 10/05/24 16:52 Pulse Rate 98 10/05/24 16:52 Respiratory Rate 16 10/05/24 16:52 Blood Pressure 142/100 H 10/05/24 16:52 Pulse Oximetry 100 10/05/24 16:52 Temperature 97.7 F 10/05/24 16:52 Pulse Rate 98 10/05/24 16:52 Respiratory Rate 16 10/05/24 16:52 Blood Pressure 142/100 H 10/05/24 16:52 Pulse Oximetry 100 10/05/24 16:52 MDM - Neuro Symptoms/Deficit MDM Narrative Medical decision making narrative: 24-year-old female presents to the emergency department for left-sided facial numbness and weakness that she woke up with this morning. Triage vitals with blood pressure 142/100, otherwise unremarkable. Patient is afebrile and nontoxic appearing. Exam is significant for flattened left nasal labial fold, facial droop to the left, decreased upward and downward deviation of the left eyebrow with no sparing of forehead movement. Otherwise cranial nerves 2-12 are intact. No other focal deficits. CT brain obtained which shows no acute intracranial findings. Presentation consistent with Butler's palsy. ENT exam is unremarkable with no evidence of shingles. She has no recent insect or tick bites concerning for Lyme disease, additionally it is winter. Discussed management with steroids and close follow-up with her neurologist. She has an appointment on 10/25 which I encouraged her to attend. Also discussed ophthalmic care. She currently is able to close her eye without difficulty. Discussed need for saline drops as needed and follow up with her eye doctor. States she has upcoming appointment as well. Discussed return precautions. She is agreeable to plan verbalized understanding. Discharged in stable condition. Discharge Plan Discharge Clinical Impression: Butler's palsy Patient Disposition: Home, Self-Care Condition: Stable Instructions: Antibiotic Form, Butler Palsy (ED) Additional Instructions: You were evaluated in the emergency department for facial numbness and weakness. Your exam is consistent with Butler's palsy. CT of your head shows no findings. Please take the steroids as directed and follow-up closely with her primary care provider and your neurologist. Use saline drops for your eyes as needed if your eye becomes dry. Follow-up with your eye doctor. Return to the emergency department if you develop double vision, loss of vision, focal numbness or weakness, or other concerning symptoms. Patient Language: Kiswahili Prescriptions: New prednisone 20 mg tablet 60 mg PO DAILY 6 Days Qty: 18 0RF No Action albuterol sulfate 2.5 mg /3 mL (0.083 %) solution for nebulization See Rx Instructions .ROUTE .COMPLEX PRN (Reason: sob) Rx Instructions: as prescribed albuterol sulfate 90 mcg/actuation HFA aerosol inhaler See Rx Instructions .ROUTE .COMPLEX PRN (Reason: sob) Rx Instructions: as prescribed lamotrigine 100 mg tablet 100 mg PO DAILY azithromycin 250 mg tablet See Rx Instructions .ROUTE .COMPLEX Qty: 6 0RF Rx Instructions: For 250 mg dose pack: take 500 mg today (day 1), then 250 mg for 4 days (days 2-5) albuterol sulfate 90 mcg/actuation HFA aerosol inhaler 2 puff inhalation Q4-6H PRN (Reason: shortness of breath or wheezing) 30 Days Qty: 8.5 0RF (DME) nebulizer and compressor [Home Nebulizer Plus Sidestream] Device See Rx Instructions .Route Qty: 1 0RF Rx Instructions: As directed epinephrine 0.3 mg/0.3 mL auto-injector 0.3 mg IM ONCE Qty: 2 0RF Rx Instructions: as a single dose; may repeat once Follow-up/Referrals: Leann,LIVIA Connolly [Primary Care Provider] -
--- OUTSIDE RECORDS SUMMARY | 2024-10-05 17:24 | XMS_ITS | Referral Summary ---
Author Organization [facility] Address [address] [facility] [place] [address] Care Team Providers Care Mind Reader Name Role Phone Cathleen Noriega PA-C Primary Care Provider [phone] Source Comments [facility],non-owned Affiliates and Associated Physician Practices is amultiple site organization consisting of ambulatory clinics and hospital sitesin [place], [place], [place] and [place]. This disclosure is being madepursuant to the Care Everywhere program and may not contain all information available regarding this patient. Last updated 18.[facility] Encounters Date Type Department Care Team Description 09/27/2024 2:15 PM DIETITIAN HELPER Office Visit [facility] - ENT [address] [place] [phone] Solis Enrique MD Vocal cord dysfunction (Primary Dx) 09/06/2024 Travel 09/06/2024 3:00 PM DIETITIAN HELPER Office Visit [facility] [address] [place] [phone] Solis Enrique MD Vocal cord dysfunction (Primary Dx) 08/23/2024 Telephone [facility] [address] [place] [phone] Solis Enrique MD Appointment 07/12/2024 Travel from Last 3 Months Allergies Active Allergy Reactions Criticality Noted Date Comments Adhesive Sensitivity Rash,Unknown Medium 08/19/2023 Bee Venom Unknown 09/06/2024 Coconut Flavor Anaphylaxis,Unknown High 08/19/2023 Dust Mite Extract Unknown 09/06/2024 Flavoring Agent Urticaria Medium 08/19/2023 Latex Anaphylaxis,Unknown High 08/19/2023 [place] Flavor Rash Medium 09/06/2024 Wasp Venom Anaphylaxis,Unknown [...] Comments Blood Pressure 125/69 09/27/2024 2:20 PM DIETITIAN HELPER Pulse 91 09/27/2024 2:20 PM DIETITIAN HELPER Temperature - - Respiratory Rate - - Oxygen Saturation - - Inhaled Oxygen Concentration - - Weight 142 kg (313 lb) 09/27/2024 2:20 PM DIETITIAN HELPER Height 157.5 cm (5' 2 ) 09/27/2024 2:20 PM DIETITIAN HELPER Body Mass Index 57.25 09/27/2024 2:20 PM DIETITIAN HELPER Plan of Treatment Upcoming Encounters Date Type Department Care Team (Late st Contact Info) Description 10/11/2024 10:00 AM DIETITIAN HELPER Office Visit [facility] - ENT [address] [place] [phone] Solis Enrique MD [address] [place] [address] [place] [address] Procedures Procedure Name Priority Date/Time Associated Diagnosis Comments LA LARYNGOSCOPY,FLEX FIBER,DIAGNOSTIC Routine 09/06/2024 5:36 PM DIETITIAN HELPER Vocal cord dysfunction from Last 3 Months Results * LA LARYNGOSCOPY,FLEX FIBER,DIAGNOSTIC (09/06/2024 5:36 PM DIETITIAN HELPER) Narrative Solis Enrique MD - 09/06/2024 5:36 PM DIETITIAN HELPER Solis Enrique MD ? 09/06/2024 ??5:41 PM Procedure Note Endoscopy Type: ??Laryngoscopy without stroboscopy 04262 Endoscope: Flexible 4mm Scope Anesthesia: Lidocaine 2% [...] ORDERABLES from Last 3 Months Care Teams Mind Reader Relationship Specialty Start Date End Date Cathleen Noriega PA-C [address] [place] [phone] PCP - General 09/06/24
--- OUTSIDE RECORDS SUMMARY | 2024-10-05 17:24 | XMS_ITS | Referral Summary ---
Author Organization [facility] Main [facility] s Address [address] [place] [address] Care Team Providers Care Facilities Locator Name Role Phone Cathleen Noriega Primary Care Provider [phone] Encounters Date Type Department Care Team Description 07/28/2024 Orders Only [facility] Pulmonology [address] [place] [address] [place] [phone] Linda Gonzalez MD 07/21/2024 Telephone [facility] Pulmonology [address] [place] [address] [place] [phone] Angie Fuentes MA Prior Auth (AirSupra) 07/18/2024 11:00 AM NUCLEAR UNIT OPERATOR Office Visit [facility] Pulmonology [address] [place] [address] [place] [phone] Linda Gonzalez MD Vocal cord dysfunction (Primary Dx); SOB (shortness of breath) 07/14/2024 9:00 AM NUCLEAR UNIT OPERATOR - 07/14/2024 11:59 PM NUCLEAR UNIT OPERATOR Hospital Encounter [facility] Respiratory Therapy [address] [place] [phone] SOB (shortness of breath); Asthma, unspecified asthma severity, unspecified whether complicated, unspecified whether persistent; Vocal cord dysfunction Discharge Disposition: Discharge to home or self care 07/05/2024 9:30 AM CDT Office Visit [facility] Pulmonology [address] [place] [address] [place] [phone] Linda Gonzalez MD Vocal cord dysfunction (Primary [...] Comments Blood Pressure 110/79 07/18/2024 10:40 AM NUCLEAR UNIT OPERATOR Pulse 72 07/18/2024 10:40 AM NUCLEAR UNIT OPERATOR Temperature 35.8 ??C (96.4 ??F) 07/18/2024 10:[address] Respiratory Rate 18 07/18/2024 10:40 AM NUCLEAR UNIT OPERATOR Oxygen Saturation 98% 07/18/2024 10:40 AM NUCLEAR UNIT OPERATOR Inhaled Oxygen Concentration - - Weight 138.3 kg (305 lb) 07/18/2024 10:40 AM NUCLEAR UNIT OPERATOR Height 158.8 cm (5' 2.52 ) 07/18/2024 10:[address] Body Mass Index 54.86 07/18/2024 10:40 AM NUCLEAR UNIT OPERATOR Plan of Treatment Not on file Procedures Procedure Name Priority Date/Time Associated Diagnosis Comments PULMONARY FUNCTION TEST (PFT) Routine 07/14/2024 10:12 AM NUCLEAR UNIT OPERATOR SOB (shortness of breath) Asthma, unspecified asthma severity, unspecified whether complicated, unspecified whether persistent Vocal cord dysfunction from Last 3 Months Results * (ABNORMAL) Pulmonary Function Test - (07/14/2024 10:12 AM NUCLEAR UNIT OPERATOR) FVC PRE 4.36(A) 2.84 - 4.29 L [facility] FEV1 PRE 3.60 2.46 - 3.65 L [facility] [id number] 82.56 75.11 - 95.83 % [facility] NQU16-20% PRE 3.71 2.38 - 5.02 L/s [facility] PEF PRE 4.45(A) 5.32 - 8.28 L/s [facility] DLCOc SB 24.08 20.89 - 32.36 ml/(min*mm Hg) [facility] DLCO/VA PRE 4.73 4.02 - 7.54 ml/(min*mm Hg*L) [facility] VA 5.09(A) 4.45 - 4.45 L [facility] TLC PRE 5.54 3.62 - 5.59 L [facility] VC PRE 4.40(A) 2.77 - 4.15 L [facility] IC PRE 3.39(A) 2.16 - 2.16 L [facility] FRC PL PRE 2.15 1.73 - 3.38 L [facility] ERV PRE 1.01(A) 1.30 - 1.30 L [facility] RV PRE 1.14 0.67 - 1.83 L [facility] VTG 2.44 L [facility] RAW PRE 2.80(A) 3.06 - 3.06 cmH2O*s/L [facility] Anatomical Region Laterality Modality PFT 07/14/2024 9:40 AM NUCLEAR UNIT OPERATOR Narrative 07/14/2024 11:49 AM NUCLEAR UNIT OPERATOR Spirometry shows no obstruction. ??Patient's inspiratory flow loop did not peak. Lung volumes with no restrictive lung disease. No diffusion impairment. Normal inspiratory flow loop. Overall normal PFTs Electronically signed by Linda Gonzalez MD ?? us Linda Gonzalez MD PFT ORDERABLES Final Res ult from Last 3 Months Insurance [facility] Care Teams Facilities Locator Relationship Specialty Start Date End Date Cathleen Noriega PA [address] [place] [id number] PCP - General Physician Journeyman Sheet Metal Worker 07/05/24
--- OUTSIDE RECORDS SUMMARY | 2024-10-05 17:24 | XMS_ITS | Encounter Summary ---
Author Organization [facility] Address [address] [place] [address]. [place] [address] [place] [address] Care Team Providers Care Knitting Teacher Name Role Phone Florencia Navarrete PA-C Primary Care Provider + Cathleen Noriega PA-C Primary Care Provider [phone] Encounter Details Date Type Department Care Team (Late st Contact Info) Description 12/01/2023 MyChart Message Enc [facility] Medical Group Multispecialty Care - [address], [address] [place] [phone] Natalie Mo MD [address] [place], [place] [phone] Work note Social History Tobacco Use Types [...] Sex Assigned at Female 08/17/2023 12:07 PM CEMENT SIDE LASTER Legal Sex Female 6:07 PM CEMENT SIDE LASTER Gender Identity Female 08/17/2023 12:07 PM CEMENT SIDE LASTER Sexual Orientation Not on file documented as of this encounter Plan of Treatment Upcoming Encounters Date Type Department Care Team (Late st Contact Info) Description 11/08/2024 1:20 PM CEMENT SIDE LASTER Office Visit [facility] Medical [facility] Multispecialty Care - [facility] [address] [facility], [address] [place] [address] Natalie Mo MD [address] [place] [address] documented as of this encounter Visit Diagnoses Not on filedocumented in this encounter Care Teams Knitting Teacher Relationship Specialty Start Date End Date Florencia Navarrete PA-C [facility] [place] [address] PCP - General PHYSICIAN BUNDLE PACKER 08/14/23 01/14/24 Cathleen Noriega PA-C [address] [place] [phone] PCP - General PHYSICIAN BUNDLE PACKER 01/15/24 documented as of this encounter
--- OUTSIDE RECORDS SUMMARY | 2024-10-05 17:24 | XMS_ITS | Clinical Summary ---
Author Organization [facility] Address [address] [place] [address] Care Team Providers Care Straight Ruling Machine Operator Name Role Phone Cathleen Noriega Primary Care Provider [phone] Allergies Active Allergy Reactions Criticality Noted Date [...] Department Care Team Description 07/28/2024 Orders Only [facility] Medical Group Pulmonology [address] [place] [phone] Linda Gonzalez MD 07/21/2024 Telephone [facility] Pulmonology [address] [place] [address] [place] [phone] Angie Fuentes MA Prior Auth (AirSupra) 07/18/2024 11:00 AM DIRECTOR CAREER Office Visit [facility] Pulmonology [address] [place] [address] [place] [phone] Linda Gonzalez MD Vocal cord dysfunction (Primary Dx); SOB (shortness of breath) 07/14/2024 9:00 AM DIRECTOR CAREER - 07/14/2024 11:59 PM DIRECTOR CAREER Hospital Encounter [facility] Respiratory Therapy [address] [place] [phone] SOB (shortness of breath); Asthma, unspecified asthma severity, unspecified whether complicated, unspecified whether persistent; Vocal cord dysfunction Discharge Disposition: Discharge to home or self care 07/05/2024 9:30 AM CDT Office Visit [facility] Pulmonology [address] [place] [address] [place] [phone] Linda Gonzalez MD Vocal cord dysfunction (Primary [...] Comments Blood Pressure 110/79 07/18/2024 10:40 AM DIRECTOR CAREER Pulse 72 07/18/2024 10:40 AM DIRECTOR CAREER Temperature 35.8 ??C (96.4 ??F) 07/18/2024 10:[address] Respiratory Rate 18 07/18/2024 10:40 AM DIRECTOR CAREER Oxygen Saturation 98% 07/18/2024 10:40 AM DIRECTOR CAREER Inhaled Oxygen Concentration - - Weight 138.3 kg (305 lb) 07/18/2024 10:40 AM DIRECTOR CAREER Height 158.8 cm (5' 2.52 ) 07/18/2024 10:[address] Body Mass Index 54.86 07/18/2024 10:40 AM DIRECTOR CAREER Plan of Treatment Health Maintenance Due Date [...] FUNCTION TEST (PFT) Routine 07/14/2024 10:12 AM DIRECTOR CAREER SOB (shortness of breath) Asthma, unspecified asthma severity, unspecified whether complicated, unspecified whether persistent Vocal cord dysfunction from Last 3 Months Results * (ABNORMAL) Pulmonary Function Test - (07/14/2024 10:12 AM DIRECTOR CAREER) FVC PRE 4.36(A) 2.84 - 4.29 L [facility] FEV1 PRE 3.60 2.46 - 3.65 L [facility] FPE1HOM-QDY 82.56 75.11 - 95.83 % [facility] KAV80-02% PRE 3.71 2.38 - 5.02 L/s [facility] PEF PRE 4.45(A) 5.32 - 8.28 L/s [facility] DLCOc SB 24.08 20.89 - 32.36 ml/(min*mm Hg) [facility] DLCO/VA PRE 4.73 4.02 - 7.54 ml/(min*mm Hg*L) [facility] VA 5.09(A) 4.45 - 4.45 L [facility] TLC PRE 5.54 3.62 - 5.59 L [facility] VC PRE 4.40(A) 2.77 - 4.15 L [facility] IC PRE 3.39(A) 2.16 - 2.16 L [facility] FRC PL PRE 2.15 1.73 - 3.38 L [facility] ERV PRE 1.01(A) 1.30 - 1.30 L [facility] RV PRE 1.14 0.67 - 1.83 L [facility] VTG 2.44 L [facility] RAW PRE 2.80(A) 3.06 - 3.06 cmH2O*s/L [facility] Anatomical Region Laterality Modality PFT 07/14/2024 9:40 AM DIRECTOR CAREER Narrative 07/14/2024 11:49 AM DIRECTOR CAREER Spirometry shows no obstruction. ??Patient's inspiratory flow loop did not peak. Lung volumes with no restrictive lung disease. No diffusion impairment. Normal inspiratory flow loop. Overall normal PFTs Electronically signed by Linda Gonzalez MD ?? us Linda Gonzalez MD PFT ORDERABLES Final Res ult from Last 3 Months Insurance [facility] Care Teams Straight Ruling Machine Operator Relationship Specialty Start Date End Date Cathleen Noriega PA [address] [place] [phone] PCP - General Physician Instructional Material Director 07/05/24
--- OUTSIDE RECORDS SUMMARY | 2024-10-05 17:24 | XMS_ITS | Clinical Summary ---
Author Organization [facility] Address [address] [place] [address]. [place], [place] [phone] [place] [phone] Care Team Providers Care Director Of Web Marketing Name Role Phone Cathleen Noriega PA-C Primary Care Provider [phone] Allergies Active Allergy Reactions Criticality Noted Date [...] Problems Problem Noted Date Diagnosed Date Missed ([facility]) 01/15/2024 Encounters Date Type Department Care Team Description 09/25/2024 7:55 PM FOREPART RASPER - 09/25/2024 11:13 PM FOREPART RASPER Emergency [facility] [place] [address] Temi Rush PA Abdominal Pain Discharge Disposition: Home or Self Care (Routine Discharge) 09/25/2024 Travel 09/08/2024 Telephone [facility] Multispecialty Care - [facility] [address] [facility], [address] [place] [phone] Natalie Mo MD Results (Provider message given to patient. VU/Patient follow up scheduled) 09/03/2024 Orders Only [facility] [address] [facility], [address] [place] [phone] Bebeto Cárdenas MD 08/23/2024 Scan [facility] [...] Sex Assigned at Female 08/17/2023 12:07 PM FOREPART RASPER Legal Sex Female 6:07 PM FOREPART RASPER Gender Identity Female 08/17/2023 12:07 PM FOREPART RASPER Sexual Orientation Not on file Last Filed Vital Signs Vital Sign Reading Time Taken Comments Blood Pressure 142/94 09/25/2024 7:38 PM FOREPART RASPER Pulse 90 09/25/2024 7:38 PM FOREPART RASPER Temperature 36.3 ??C (97.3 ??F) 09/25/2024 7:38 PM CS T Respiratory Rate 20 09/25/2024 7:38 PM FOREPART RASPER Oxygen Saturation 100% 09/25/2024 7:38 PM FOREPART RASPER Inhaled Oxygen Concentration - - Weight 132.9 kg (293 lb) 09/25/2024 7:38 PM FOREPART RASPER Height 157.5 cm (5' 2 ) 09/25/2024 7:38 PM FOREPART RASPER Body Mass Index 53.59 09/25/2024 7:38 PM FOREPART RASPER Plan of Treatment Upcoming Encounters Date Type Department Care Team (Late st Contact Info) Description 11/08/2024 1:20 PM FOREPART RASPER Office Visit [facility] Medical Group Multispecialty Care - [address], [address] [place] [phone] Natalie Mo MD 3 [place] [address] Health Maintenance Due Date Last Done Comments [...] 2024 Influenza Adult (#1) 2024 PHQ-2 (Physician Newell) 09/07/2024 12/01/2023 PHQ-2 (Physician Newell) 11/30/2024 12/01/2023 Meningococcal B Vaccine Aged Out [...] ABD+PEL W CON STAT 09/25/2024 9:28 PM FOREPART RASPER URINALYSIS, AUTO, COMPLETE STAT 09/25/2024 8:08 PM FOREPART RASPER COMPREHENSIVE METABOLIC PANEL STAT 09/25/2024 8:08 PM FOREPART RASPER CBC W/DIFF AUTOMATED STAT 09/25/2024 8:08 PM FOREPART RASPER POCT URINE (BACK OFFICE) STAT 09/25/2024 7:59 PM FOREPART RASPER EEG GENERIC (SCAN ORDER) 08/23/2024 from Last 3 Months Results * CT ABD+PEL W CON (09/25/2024 9:28 PM FOREPART RASPER) Anatomical Region Laterality Modality Abdomen Computed Tomogra phy 09/25/2024 9:29 PM FOREPART RASPER Impressions 09/25/2024 9:31 PM FOREPART RASPER Impression: No definite acute CT findings within the abdomen or pelvis. Ordered By: TEMI RUSH Interpreted By: Ulises Lopes MD, 09/25/2024 9:29 PM Narrative 09/25/2024 9:31 PM FOREPART RASPER [address] [address] [place] abdomen and pelvis with contrast: 09/25/2024 [...] Procedure Note Ulises Lopes MD - 09/25/[address] [address] [address] abdomen and pelvis with contrast: 09/25/2024 [...] (ABNORMAL) URINALYSIS, AUTO, COMPLETE (09/25/2024 8:08 PM FOREPART RASPER) SPECIMEN TYPE URINE CLEAN CATCH 09/25/2024 7:[address] [facility] COLOR (U) LIGHT YELLOW 09/25/2024 8:[address] [facility] TRANSPARENCY CLEAR 09/25/2024 8:[address] [facility] SPECIFIC GRAVITY (U) 1.029 1.001 - 1.030 09/25/2024 8:[address] [facility] U PH 5.5 5.0 - 9.0 09/25/2024 8:[address] [facility] LEUKOCYTES (U) NEGATIVE NEGATIVE 09/25/2024 8:[address] [facility] NITRITES NEGATIVE NEGATIVE 09/25/2024 8:[address] [facility] PROTEIN RANDOM (U) NEGATIVE <30 MG/DL 09/25/2024 8:[address] [facility] GLUCOSE (U) NORMAL NORMAL MG/DL 09/25/2024 8:[address] [facility] KETONES MG/DL (U) NEGATIVE NEGATIVE MG/DL 09/25/2024 8:[address] [facility] UROBILINOGEN NORMAL NORMAL MG/DL 09/25/2024 8:[address] [facility] BILIRUBIN (U) NEGATIVE NEGATIVE MG/DL 09/25/2024 8:[address] [facility] BLOOD (U) 1+(A) NEGATIVE 09/25/2024 8:[address] [facility] MUCUS RARE /LPF 09/25/2024 8:[address] [facility] RBC/HPF 5 <6 /HPF 09/25/2024 8:[address] [facility] BACTERIA (U) FEW(A) NONE /HPF 09/25/2024 8:[address] [facility] SQUAMOUS EPITHELIALS FEW /HPF 09/25/2024 8:19 PM FOREPART RASPER [facility] URINE SPECIMEN OBTAINED BY CLEAN CATCH PROCEDURE / Unknown 09/25/2024 8:08 PM FOREPART RASPER us Temi BHAKTA URINE ORDERABLES Final Res ult [facility] [address] [place] [address], * (ABNORMAL) COMPREHENSIVE METABOLIC PANEL (09/25/2024 8:08 PM FOREPART RASPER) GLUCOSE 68(L) 70 - 99 MG/DL 09/25/2024 8:[address] [facility] BUN 13 7 - 18 MG/DL 09/25/2024 8:[address] [facility] CREATININE S/P/B 0.84 0.55 - 1.02 MG/DL 09/25/2024 8:[address] [facility] SODIUM S/P/B 141 136 - 145 MMOL/L 09/25/2024 8:[address] [facility] POTASSIUM S/P/B 3.6 3.5 - 5.1 MMOL/L 09/25/2024 8:[address] [facility] CHLORIDE S/P/B 111 97 - 115 MMOL/L 09/25/2024 8:37 PM FOREPART RASPER [facility] CO2 24.6 21 - 32 MMOL/L 09/25/2024 8:[address] [facility] CALCIUM S/P/B 9.1 8.5 - 10.1 MG/DL 09/25/2024 8:[address] [facility] BILIRUBIN TOTAL S/P/B 0.6 0.2 - 1.2 MG/DL 09/25/2024 8:[address] [facility] Comment: THIS ASSAY IS NOT RECOMMENDED FOR PATIENTS UNDERGOING TREATMENT WITH ELTROMBOPAG DUE TO THE POTENTIAL FOR FALSELY ELEVATED RESULTS. TOTAL PROTEIN S/P/B 7.2 6.4 - 8.2 G/DL 09/25/2024 8:[address] [facility] ALBUMIN S/P/B 3.5 3.4 - 5.0 G/DL 09/25/2024 8:37 PM FOREPART RASPER [facility] AST 17 15 - 37 U/L 09/25/2024 8:[address] [facility] ALT 25 14 - 55 U/L 09/25/2024 8:[address] [facility] ALKALINE PHOSPHATASE S/P/B 55 50 - 136 U/L 09/25/2024 8:[address] [facility] ANION GAP 5.4 2 - 10 MMOL/L 09/25/2024 8:[address] [facility] BUN CREATININE RATIO 15.4 6 - 26 09/25/2024 8:[address] [facility] A/G RATIO 0.9(L) 1.0 - 2.0 RATIO 09/25/2024 8:[address] [facility] GFR ESTIMATE >90 >90 ML/MIN/1.7 3 M2 09/25/2024 8:[address] [facility] Comment: NOTE: eGFR is not calculated for patients <18 years of age or gender unknown. This is an estimated GFR calculation using the new CKD EPI creatinine equation without race and so does not require a correction factor for race. This estimated GFR should not be used for calculating drug doses. 09/25/2024 8:08 PM FOREPART RASPER us Temi [facility] Final Resu lt [facility] [address] [place] [address], * (ABNORMAL) CBC W/DIFF AUTOMATED (09/25/2024 8:08 PM FOREPART RASPER) [facility] WBC 7.95 4.5 - 11.0 x10'3/uL 09/25/2024 8:25 PM FOREPART RASPER [facility] RBC 4.41 4.20 - 5.40 x10'6/uL 09/25/2024 8:25 PM FOREPART RASPER [facility] HGB 13.7 12.0 - 16.0 G/DL 09/25/2024 8:25 PM FOREPART RASPER [facility] HCT 38.9 38.0 - 48.0 % 09/25/2024 8:25 PM FOREPART RASPER [facility] MCV 88.2 81.0 - 99.0 FL 09/25/2024 8:25 PM FOREPART RASPER [facility] MCH 31.1(H) 27.0 - 31.0 PG 09/25/2024 8:25 PM FOREPART RASPER [facility] MCHC 35.2 32.0 - 36.0 G/DL 09/25/2024 8:[address] [facility] RDW 12.5 11.5 - 14.5 % 09/25/2024 8:[address] [facility] PLT 267 130 - 400 x10'3/uL 09/25/2024 8:25 PM FOREPART RASPER [facility] MPV 9.5 9.3 - 12.2 FL 09/25/2024 8:[address] [facility] DIFFERENTIAL TYPE AUTOMATED DIFFERENTIAL 09/25/2024 8:[address] [facility] NEUTROPHILS % 65.1 % 09/25/2024 8:[address] [facility] LYMPHOCYTES % 24.5 % 09/25/2024 8:[address] [facility] MONOCYTES % 7.2 % 09/25/2024 8:25 PM FOREPART RASPER [facility] EOSINOPHILS 2.4 % 09/25/2024 8:25 PM FOREPART RASPER [facility] BASOPHILS 0.5 % 09/25/2024 8:25 PM FOREPART RASPER [facility] IMMATURE GRANS % 0.3 % 09/25/19 8:25 PM FOREPART RASPER [facility] ABS. NEUTROPHILS 5.18 1.80 - 7.70 x10'3/uL 09/25/2024 8:25 PM FOREPART RASPER [facility] ABS. LYMPHOCYTES 1.95 1.00 - 4.80 x10'3/uL 09/25/2024 8:25 PM FOREPART RASPER [facility] ABS. MONOCYTES 0.57 0.24 - 0.86 x10'3/uL 09/25/2024 8:25 PM FOREPART RASPER [facility] ABS. EOSINOPHILS 0.19 0.04 - 0.36 x10'3/uL 09/25/2024 8:25 PM FOREPART RASPER [facility] ABS. BASOPHILS 0.04 0.01 - 0.08 x10'3/uL 09/25/2024 8:25 PM FOREPART RASPER [facility] ABS. IMMATURE GRANULOCYTES 0.02 0.00 - 0.49 x10'3/uL 09/25/2024 8:25 PM FOREPART RASPER [facility] 09/25/2024 8:08 PM FOREPART RASPER us Tem[facility] Final Resu lt [facility] [address] [place] [address], [place] [phone] * POCT urine (09/25/2024 7:59 PM FOREPART RASPER) URINE HCG TEST NEGATIVE Internal Control: VALID us [facility] POINT OF CARE TEST ORDERAB LES Final Result * EEG GENERIC (SCAN ORDER) (08/23/2024) 08/23/2024 [facility] Scanned SCANNING Final Resu lt from Last 3 Months Insurance [employer] Care Teams Director Of Web Marketing Relationship Specialty Start Date End Date Cathleen Noriega PA-C [address] [place] [phone] PCP - General PHYSICIAN HEALTH BENEFITS SPECIALIST 01/15/24
--- OUTSIDE RECORDS SUMMARY | 2024-10-05 17:24 | XMS_ITS | Clinical Summary ---
Author Organization [facility] Address [address] [place] [address] Care Team Providers Care Curriculum Assistant Name Role Phone Cathleen Noriega PA-C Primary Care Provider Source Comments [facility],non-owned Affiliates and Associated Physician Practices is amultiple site organization consisting of ambulatory clinics and hospital sitesin [place], [place], [place] and [place]. This disclosure is being madepursuant to the Care Everywhere program and may not contain all information available regarding this patient. Last updated 18.[facility] Allergies Active Allergy Reactions Criticality Noted Date Comments Adhesive Sensitivity Rash,Unknown Medium 08/19/2023 Bee Venom Unknown 09/06/2024 Coconut Flavor Anaphylaxis,Unknown High 08/19/2023 Dust Mite Extract Unknown 09/06/2024 Flavoring Agent Urticaria Medium 08/19/2023 Latex Anaphylaxis,Unknown High 08/19/2023 [place] Flavor Rash Medium 09/06/2024 Wasp Venom Anaphylaxis,Unknown [...] Department Care Team Description 09/27/2024 2:15 PM PSYCH SOCIAL WORKER Office Visit [facility] [address] [place] [phone] Solis Enrique MD Vocal cord dysfunction (Primary Dx) 09/06/2024 3:00 PM PSYCH SOCIAL WORKER Office Visit [facility] [address] [place] [phone] Solis Enrique MD Vocal cord dysfunction (Primary Dx) 09/06/2024 Travel 08/23/2024 Telephone [facility] [address] [place] [phone] Solis Enrique MD Appointment 07/12/2024 Travel from [...] Comments Blood Pressure 125/69 09/27/2024 2:20 PM PSYCH SOCIAL WORKER Pulse 91 09/27/2024 2:20 PM PSYCH SOCIAL WORKER Temperature - - Respiratory Rate - - Oxygen Saturation - - Inhaled Oxygen Concentration - - Weight 142 kg (313 lb) 09/27/2024 2:20 PM PSYCH SOCIAL WORKER Height 157.5 cm (5' 2 ) 09/27/2024 2:20 PM PSYCH SOCIAL WORKER Body Mass Index 57.25 09/27/2024 2:20 PM PSYCH SOCIAL WORKER Plan of Treatment Upcoming Encounters Date Type Department Care Team (Late st Contact Info) Description 10/11/2024 10:00 AM PSYCH SOCIAL WORKER [facility] [address] [place] [phone] Solis Enrique MD [address] [place] [address] [place] [address] Health Maintenance Due Date Last Done Comments [...] Procedure Name Priority Date/Time Associated Diagnosis Comments TN LARYNGOSCOPY,FLEX FIBER,DIAGNOSTIC Routine 09/06/2024 5:36 PM PSYCH SOCIAL WORKER Vocal cord dysfunction from Last 3 Months Results * TN LARYNGOSCOPY,FLEX FIBER,DIAGNOSTIC (09/06/2024 5:36 PM PSYCH SOCIAL WORKER) Narrative Solis Enrique MD - 09/06/2024 5:36 PM PSYCH SOCIAL WORKER Solis Enrique MD ? 09/06/2024 ??5:41 PM Procedure Note Endoscopy Type: ??Laryngoscopy without stroboscopy 40252 Endoscope: Flexible 4mm Scope Anesthesia: Lidocaine 2% [...] ORDERABLES from Last 3 Months Care Teams Curriculum Assistant Relationship Specialty Start Date End Date Cathleen Noriega PA-C [address] [place] [phone] PCP - General 09/06/24
--- OUTSIDE RECORDS SUMMARY | 2024-10-05 17:24 | XMS_ITS | Patient Health Summary ---
Author Organization [facility] Address [address] [place] [address] Care Team Providers Care Fast Food Team Member Name Role Phone Cathleen Noriega PA-C Primary Care Provider [phone] Note from [facility],non-owned Affiliates and Associated Physician Practices is amultiple site organization consisting of ambulatory clinics and hospital sitesin [place], [place], [place] and [place]. This disclosure is being madepursuant to the Care Everywhere program and may not contain all information available regarding this patient. Last updated 18.[facility] Allergies * Adhesive Sensitivity(Rash,Unknown) -Medium Criticality * Bee Venom(Unknown) * Coconut Flavor(Anaphylaxis,Unknown) -High Criticality * Dust Mite Extract(Unknown) * Flavoring Agent(Urticaria) -Medium Criticality * Latex(Anaphylaxis,Unknown) -High Criticality * [place] Flavor(Rash) -Medium Criticality * Wasp Venom(Anaphylaxis,Unknown) -High [...] Comments Blood Pressure 125/69 09/27/2024 2:20 PM FUNERAL CAR DRIVER Pulse 91 09/27/2024 2:20 PM FUNERAL CAR DRIVER Temperature - - Respiratory Rate - - Oxygen Saturation - - Inhaled Oxygen Concentration - - Weight 142 kg (313 lb) 09/27/2024 2:20 PM FUNERAL CAR DRIVER Height 157.5 cm (5' 2 ) 09/27/2024 2:20 PM FUNERAL CAR DRIVER Body Mass Index 57.25 09/27/2024 2:20 PM FUNERAL CAR DRIVER Procedures * CT LARYNGOSCOPY,FLEX FIBER,DIAGNOSTIC(Performed 09/06/2024) Performed for Vocal cord dysfunction Results * CT LARYNGOSCOPY,FLEX FIBER,DIAGNOSTIC (09/06/2024 5:36 PM FUNERAL CAR DRIVER) Narrative Solis Enrique MD - 09/06/2024 5:36 PM FUNERAL CAR DRIVER Solis Enrique MD ? 09/06/2024 ??5:41 PM Procedure Note Endoscopy Type: ??Laryngoscopy without stroboscopy 49537 Endoscope: Flexible 4mm Scope Anesthesia: Lidocaine 2% [...] MD PROCEDURE/MINOR SURG ICAL ORDERABLES Care Teams Fast Food Team Member Relationship Specialty Start Date End Date Cathleen Noriega PA-C [address] [place] [phone] PCP - General 09/06/24
--- OUTSIDE RECORDS SUMMARY | 2024-10-05 17:24 | XMS_ITS | CONTINUITY OF CARE DOCUMENT ---
Author Name clement sarahbrissa Address Unknown Organization [facility] Address [address] [place] [address] Phone [phone] Care Team Providers Care Label Stamper Name Role Phone Manny GRULLON, Charles Unavailable RUDDY RAGLAND Unavailable RUDDY RAGLAND Unavailable [phone] INSURANCE PROVIDERS Payer name Policy type / Coverage type [place] red democrat ID [facility] (MEDICAID) Medicaid [id number]
--- OUTSIDE RECORDS SUMMARY | 2024-10-05 17:24 | XMS_ITS | Encounter Summary ---
Author Organization [facility] Address [address] [place] [address]. [place] [address] [place] [address] Care Team Providers Care Parts Inspector Name Role Phone Florecnia Navarrete PA-C Primary Care Provider + Cathleen Noriega PA-C Primary Care Provider [phone] Encounter Details Date Type Department Care Team (Late st Contact Info) Description 11/20/2023 MyChart Message Enc [facility] Multispecialty Care - [address], [address] [place] [phone] Natalie Mo MD [address] [place], [place] [phone] Testing Social History Tobacco Use Types Packs/Day Years Used Date Smoking Tobacco: Never Passive Smoke Exposure: Current Smokeless Tobacco: Never Alcohol Use Standard Drinks/Week Comments Not Currently 0 (1 standard drink = 0.6 oz pur e alcohol) Comments Unknown Sex and Gender Information Value Date Recorded Sex Assigned at Female 08/17/2023 12:07 PM DIRECTOR SERVICE Legal Sex Female 6:07 PM DIRECTOR SERVICE Gender Identity Female 08/17/2023 12:07 PM DIRECTOR SERVICE Sexual Orientation Not on file documented as of this encounter Plan of Treatment Upcoming Encounters Date Type Department Care Team (Late st Contact Info) Description 11/08/2024 1:20 PM DIRECTOR SERVICE Office Visit [facility] Multispecialty Care - [facility] [address] [facility], [address] [place] [phone] Natalie Mo MD [address] [place] [address] documented as of this encounter Visit Diagnoses Not on filedocumented in this encounter Care Teams Parts Inspector Relationship Specialty Start Date End Date Florencia Navarrete PA-C [address] [place] [id number] PCP - General PHYSICIAN CURB ATTENDANT 08/14/23 01/14/24 Cathleen Noriega PA-C [address] [place] [phone] PCP - General PHYSICIAN CURB ATTENDANT 01/15/24 documented as of this encounter
[2024-10-05] MEDS: predniSONE 20 MG TABLET 60 MG PO (19:56)
== END 2024-10-05 20:03 | disposition home or self-care (01) ==
PROVIDERS: Emergency Provider Physician Assistant; PCP Physician Assistant
DX: G51.0 Bell's palsy (principal); G40.909 Epilepsy, unspecified, not intractable, without status epilepticus; J45.909 Unspecified asthma, uncomplicated; Z77.22 Contact with and (suspected) exposure to environmental tobacco smoke (acute) (chronic); Z79.899 Other long term (current) drug therapy
CPT/HCPCS: 70450; 99284; J7512

== ENCOUNTER 2025-07-22 22:30 | Emergency (ER) | payer OTHER, SELFPAY ==
[2025-07-22 22:40] VITALS: BP 124/75; PULSE 95; RESP 12; TEMP 36.4; O2SAT 100
[2025-07-22 23:22] LABS: Hematocrit 35.9 % (37.0-47.0); Hemoglobin 12.3 g/dL (12.0-15.0); Immature Granulocyte Percent A 0.8 % (0-0.5); Lymphocytes Absolute Auto 2.08 K/mm3 (0.9-3.2); Mean Corpuscular HGB Conc 34.3 g/dl (32-36); Mean Corpuscular Hemoglobin 31.5 pg (26-34); Mean Corpuscular Volume 91.8 fl (80-100); Nucleated Red Blood Cells Absolute Auto 0.000 K/mm3 (0.0-0.012); Nucleated Red Blood Cells Perc 0.0 % (0.0-0.2); Platelet Count Result 207 k/mm3 (150-375); Red Blood Count 3.91 M/mm3 (4.2-5.4); White Blood Count 13.2 K/mm3 (4.5-10.0)
[2025-07-22 23:33] LABS: Add Urine Microscopic? YES; Appearance Urine Clear (Clear); Glucose Urine UA Negative (Negative); Leukocyte Esterase Ur Negative LEU/UL (Negative); Nitrate Urine Negative (Negative); Non Pathogenic Casts 0-2; Specific Grav Ur 1.026 (1.001-1.035)
[2025-07-22 23:37] LABS: Alanine Aminotransferase 15 U/L (6-35); Albumin Level 3.7 g/dL (3.5-5.1); Alkaline Phosphatase 61 U/L (38-126); Anion Gap 6 mmol/L (4-12); Aspartate Amino Transferase 19 U/L (14-36); Bilirubin,Total 0.5 mg/dL (0.2-1.3); Blood Urea Nitrogen 11 mg/dL (7-17); Calcium 9.0 mg/dL (8.4-10.2); Carbon Dioxide 23 mmol/L (22-30); Chloride 104 mmol/L (98-107); Estimated Glomerular Filt Rate > 60; Glucose 95 mg/dL (65-110); Lipase 76 U/L (23-300); Potassium 3.8 mmol/L (3.4-5.0); Sodium 133 mmol/L (137-145); Total Protein 6.9 g/dL (6.3-8.2)
[2025-07-22 23:52] VITALS: BP 114/68; PULSE 92; RESP 18; O2SAT 100
--- NOTE | 2025-07-23 00:42 | ED.GENADULT ---
HPI - General Adult General Chief complaint: Abdominal Pain Stated complaint: 22 weeks with upper abd pain Time Seen by Provider: 07/23/25 00:19 History of Present Illness HPI narrative: This is a 25-year-old female at 22 weeks gestation presenting for epigastric discomfort. Patient says she has been having epigastric discomfort x1 day. It started after she had a white chili cheese chili bowl for lunch. she has nausea but without vomiting. She denies chest pain, difficulty breathing, fevers abdominal pain vaginal bleeding discharge or urinary symptoms. She has an appointment to see a GI doctor next week as she has had chronic GI issues. Related Data Home Medications ?Medication ?Instructions ?Recorded ?Confirmed ?Last Taken ?Type albuterol sulfate 2.5 mg/3 mL See Rx Instructions .Route 05/20/22 09/02/24 Unknown History (0.083 %) solution for nebulization .COMPLEX PRN sob albuterol sulfate 90 mcg/actuation See Rx Instructions .Route 05/20/22 09/02/24 Unknown History aerosol inhaler .COMPLEX PRN sob lamotrigine 100 mg tablet 100 mg PO DAILY 09/25/23 09/02/24 Unknown History Allergies Allergy/AdvReac Type Severity Reaction Status Date / Time coconut Allergy Severe Anaphylaxis Verified 09/02/24 12:04 latex Allergy Intermediate Rash Verified 09/02/24 12:04 ac Allergy Intermediate Hives Verified 09/02/24 12:04 bee venom protein (honey Allergy Anaphylaxis Verified 09/02/24 12:04 bee) (bees) PMFSH Past Medical History Medical History ADHD (attention deficit hyperactivity disorder) Anxiety and depression Vocal cord dysfunction Asthma Surgical History Surgical History No significant past surgical history Family History Family History Mother Hypertension Grandparent Hypertension Social History Social History Smoking status: Never smoker Second hand tobacco smoke exposure: Yes Alcohol intake: current Substance use: never Living arrangements: with family Occupation/Education: student Gender identity (if verbalized by the patient): Female Spiritual care concerns: No Exam Narrative: APPEARANCE: No apparent distress. Head: atraumatic. EYES: EOMI, NOSE: Atraumatic NECK: Trachea midline RESPIRATORY: No increased rate of breathing CARDIOVASCULAR: RRR, ABDOMINAL: Obese, reported tenderness in the epigastric region without guarding or rebound. Point of care OB ultrasound revealed intrauterine fetus with a normal heart rate. MUSCULOSKELETAl: No obvious deformities NEURO: Alert. Moving 4/4 extremities SKIN:: Warm, dry. Normal color PSYCHIATRIC: Normal affect Course Vital Signs Vital signs: Vital Signs Temperature 97.6 F 07/22/25 22:40 Pulse Rate 95 07/22/25 22:40 Respiratory Rate 12 07/22/25 22:40 Blood Pressure 124/75 07/22/25 22:40 Pulse Oximetry 100 07/22/25 22:40 Oxygen Delivery Room Air 07/22/25 22:40 Temperature 97.6 F 07/22/25 22:40 Pulse Rate 92 07/22/25 23:52 Respiratory Rate 18 07/22/25 23:52 Blood Pressure 114/68 07/22/25 23:52 Pulse Oximetry 100 07/22/25 23:52 Oxygen Delivery Room Air 07/22/25 23:52 Medical Decision Making MDM Narrative Medical decision making narrative: -Course:25-year-old female presenting with epigastric discomfort . She has some mild discomfort in the epigastric region on exam. Laboratory studies within normal limits. History and physical most consistent gastritis / GERD. Treated with Maalox and Pepcid. She has follow-up with GI physician next week. Discharged with return precautions. urine had 6-10 white blood cells and 2+ bacteria. Due to she will be treated with Keflex while we await culture results. -DDX includes but is not limited to: Gastritis, GERD, peptic ulcer disease pancreatitis,, gallbladder disease Vital Signs Vital Signs: Vital Signs Temperature 97.6 F 07/22/25 22:40 Pulse Rate 95 07/22/25 22:40 Respiratory Rate 12 07/22/25 22:40 Blood Pressure 124/75 07/22/25 22:40 Pulse Oximetry 100 07/22/25 22:40 Oxygen Delivery Room Air 07/22/25 22:40 Temperature 97.6 F 07/22/25 22:40 Pulse Rate 92 07/22/25 23:52 Respiratory Rate 18 07/22/25 23:52 Blood Pressure 114/68 07/22/25 23:52 Pulse Oximetry 100 07/22/25 23:52 Oxygen Delivery Room Air 07/22/25 23:52 Lab Data 07/22/25 23:06 07/22/25 23:06 Labs: Lab Results 07/22/25 Range/Units 23:06 WBC 13.2 H (4.5-10.0) K/mm3 RBC 3.91 L (4.2-5.4) M/mm3 Hgb 12.3 (12.0-15.0) g/dL Hct 35.9 L (37.0-47.0) % MCV 91.8 (80-100) fl MCH 31.5 (26-34) pg MCHC 34.3 (32-36) g/dl RDW 13.6 (11.5-14.5) % Plt Count 207 (150-375) k/mm3 MPV 9.5 (7.4-10.4) fl Immature Gran % (Auto) 0.8 H (0-0.5) % Neut % (Auto) 75.5 H (45.5-73.1) % Lymph % (Auto) 15.7 L (18.3-44.2) % [place] % (Auto) 6.1 (2.6-8.5) % Eos % (Auto) 1.7 (0-4.4) % Baso % (Auto) 0.2 (0.2-1.2) % Lymph # (Auto) 2.08 (0.9-3.2) K/mm3 [place] # (Auto) 0.8 H (0.1-0.6) K/mm3 Eos # (Auto) 0.2 (0-0.3) K/mm3 Baso # (Auto) 0.0 (0.0-0.1) K/mm3 Abs Immat Gran (auto) 0.10 H (0.00-0.031) K/mm3 Absolute Neuts (auto) 10.0 H (1.3-6.7) K/mm3 Absolute Nucleated RBC 0.000 (0.0-0.012) K/mm3 Nucleated RBC % 0.0 (0.0-0.2) % Sodium 133 L (137-145) mmol/L Potassium 3.8 (3.4-5.0) mmol/L Chloride 104 (98-107) mmol/L Carbon Dioxide 23 (22-30) mmol/L Anion Gap 6 (4-12) mmol/L BUN 11 (7-17) mg/dL Creatinine 0.60 L (0.7-1.0) mg/dL Estim Creat Clear Calc Not Reportable Estimated GFR > 60 (59 - ) Glucose 95 (65-110) mg/dL Calcium 9.0 (8.4-10.2) mg/dL Total Bilirubin 0.5 (0.2-1.3) mg/dL AST 19 (14-36) U/L ALT 15 (6-35) U/L Alkaline Phosphatase 61 (38-126) U/L Total Protein 6.9 (6.3-8.2) g/dL Albumin 3.7 (3.5-5.1) g/dL Lipase 76 (23-300) U/L Urine Color Yellow (Yellow) Urine Appearance Clear (Clear) Urine pH 5.5 (5.0-9.0) Ur Specific [place] 1.026 (1.001-1.035) Urine Protein Negative (Negative) mg/dL Urine Glucose (UA) Negative (Negative) mg/dL Urine Ketones Trace H (Negative) mg/dL Ur Blood (Man) Trace (Negative) Urine Nitrate Negative (Negative) Urine Bilirubin Negative (Negative) Urine Urobilinogen 1.0 (<2.0) mg/dL Leukocyte Esterase Rfl Negative (Negative) LUIS FELIPE/UL Urine RBC 3-5 H (0-2) /hpf Urine WBC 6-10 H (0-3) /hpf Ur Squamous Epith Cells Occasional (Few) /hpf Urine Bacteria 2+ H /hpf Urine Casts 0-2 Discharge Plan Discharge Clinical Impression: Acid reflux disease Patient Disposition: Home Condition: Stable Instructions: Antibiotic Form, Diet for Stomach Ulcers and Gastritis (ED), Urinary Tract Infection in (ED) Additional Instructions: You were seen in the emergency department for epigastric discomfort. Please take Pepcid twice daily. Please follow-up with your GI physician next week. If you develop any new or worsening symptoms return to ED for re-evaluation. please complete the antibiotics for uti Patient Language: Slovak Prescriptions: New famotidine [Acid Workforce Consultant (famotidine)] 20 mg tablet 20 mg PO BID 42 Days Qty: 84 0RF cephalexin 500 mg capsule 500 mg PO Q12H Qty: 10 0RF No Action albuterol sulfate 2.5 mg /3 mL (0.083 %) solution for nebulization See Rx Instructions .ROUTE .COMPLEX PRN (Reason: sob) Rx Instructions: as prescribed albuterol sulfate 90 mcg/actuation HFA aerosol inhaler See Rx Instructions .ROUTE .COMPLEX PRN (Reason: sob) Rx Instructions: as prescribed lamotrigine 100 mg tablet 100 mg PO DAILY azithromycin 250 mg tablet See Rx Instructions .ROUTE .COMPLEX Qty: 6 0RF Rx Instructions: For 250 mg dose pack: take 500 mg today (day 1), then 250 mg for 4 days (days 2-5) albuterol sulfate 90 mcg/actuation HFA aerosol inhaler 2 puff inhalation Q4-6H PRN (Reason: shortness of breath or wheezing) 30 Days Qty: 8.5 0RF (DME) nebulizer and compressor [Home Nebulizer Plus Sidestream] Device See Rx Instructions .Route Qty: 1 0RF Rx Instructions: As directed epinephrine 0.3 mg/0.3 mL auto-injector 0.3 mg IM ONCE Qty: 2 0RF Rx Instructions: as a single dose; may repeat once prednisone 20 mg tablet 60 mg PO DAILY 6 Days Qty: 18 0RF Follow-up/Referrals: Leann,LIVIA Connolly [Primary Care Provider, Unknown]
[2025-07-23] MEDS: MAG HYDROX/AL HYDROX/SIMETH 30 ML UDC PO (01:17)
[2025-07-23] MEDS: FAMOTIDINE 20 MG/2 ML VIAL IV PUSH (01:17)
[2025-07-23 01:33] VITALS: BP 119/72; PULSE 89; RESP 16; O2SAT 100
== END 2025-07-23 01:34 | disposition home or self-care (01) ==
PROVIDERS: Emergency Provider Emergency Medicine; PCP Physician Assistant
DX: O99.891 Other specified diseases and conditions complicating pregnancy (principal); K21.9 Gastro-esophageal reflux disease without esophagitis; Z3A.22 22 weeks gestation of pregnancy
CPT/HCPCS: 36415; 80053; 81001; 83690; 85025; 87086; 96374; 99284; A9270